=== PATIENT | female | born 1985 | race African-American/Black ===

== ENCOUNTER 2020-10-06 16:02 | Outpatient (REF) | payer OTHER, SELFPAY | END 2020-10-06 16:03 | disposition home or self-care (01) | LOC: HO.LAB 16:02 | PROVIDERS: Visit Provider Internal Medicine | DX: Z20.822 Contact with and (suspected) exposure to COVID-19 (principal) | CPT/HCPCS: 36415; C9803; U0003; U0005 ==

== ENCOUNTER 2020-11-02 09:02 | Outpatient (REF) | payer OTHER, SELFPAY ==
[2020-11-03 08:58] LABS: BV Int Neg Control Negative (Negative); BV Int Pos Control Positive (Positive)
[2020-11-03 09:47] LABS: C. trachomatis RNA TMA NOT DETECTED (NOT DETECTED); N. gonorrhoeae RNA TMA NOT DETECTED (NOT DETECTED)
== END 2020-11-02 09:03 | disposition home or self-care (01) ==
LOC: HO.LAB 09:02
PROVIDERS: Visit Provider Advanced Practice Midwife
DX: Z01.419 Encounter for gynecological examination (general) (routine) without abnormal findings (principal); N94.10 Unspecified dyspareunia; N94.6 Dysmenorrhea, unspecified; N85.4 Malposition of uterus; R32 Unspecified urinary incontinence; Z20.2 Contact with and (suspected) exposure to infections with a predominantly sexual mode of transmission; Z87.42 Personal history of other diseases of the female genital tract
CPT/HCPCS: 36415; 87480; 87491; 87510; 87591; 87660

== ENCOUNTER 2020-11-16 13:37 | Outpatient (REF) | payer OTHER, SELFPAY ==
--- NOTE | ~2020-11-16 | US_ITS ---
EXAMINATION:US pelvic complete, US transvaginal CLINICAL INFORMATION: Reason for Exam EXCESSIVE AND FREQ. MENSES COMPARISON: No priors available. LMP: 10/19/2020 FINDINGS: UTERUS: The uterus is anteverted. Size: 10 x 5.7 x 5.2 cm. Uterine mass: There is no uterine mass. Cervix: Grossly unremarkable. Endometrium: endometrial thickness measures 0.8 cm there is echogenic structure within the endometrium 1.5 x 1.1 cm could be a polyp versus endometrial lesion. Refer image 52 series 1 ADNEXA: Normal Right ovary: Normal in size. Left ovary: Normal in size. There is corpus luteal cyst 1.8 x 1.9 x 1.6 cm. Doppler exam: Normal Doppler flow identified in both ovaries. FREE FLUID: Trace amount of free fluid. OTHER FINDINGS: None US/US transvaginal IMPRESSION: Heterogeneously echogenic structure found within the endometrium 1.5 cm concerning for possible polyp versus other lesions. Attention to follow-up recommended. Consider follow-up ultrasound in 6 weeks.
--- NOTE | ~2020-11-16 | US_ITS ---
EXAMINATION:US pelvic complete, US transvaginal CLINICAL INFORMATION: Reason for Exam EXCESSIVE AND FREQ. MENSES COMPARISON: No priors available. LMP: 10/19/2020 FINDINGS: UTERUS: The uterus is anteverted. Size: 10 x 5.7 x 5.2 cm. Uterine mass: There is no uterine mass. Cervix: Grossly unremarkable. Endometrium: endometrial thickness measures 0.8 cm there is echogenic structure within the endometrium 1.5 x 1.1 cm could be a polyp versus endometrial lesion. Refer image 52 series 1 ADNEXA: Normal Right ovary: Normal in size. Left ovary: Normal in size. There is corpus luteal cyst 1.8 x 1.9 x 1.6 cm. Doppler exam: Normal Doppler flow identified in both ovaries. FREE FLUID: Trace amount of free fluid. OTHER FINDINGS: None US/US pelvic complete IMPRESSION: Heterogeneously echogenic structure found within the endometrium 1.5 cm concerning for possible polyp versus other lesions. Attention to follow-up recommended. Consider follow-up ultrasound in 6 weeks.
== END 2020-11-16 13:38 | disposition home or self-care (01) ==
LOC: HO.US 13:37
PROVIDERS: Visit Provider Internal Medicine
DX: N92.0 Excessive and frequent menstruation with regular cycle (principal)
CPT/HCPCS: 76830; 76856

== ENCOUNTER → 2021-03-07 11:26 | Outpatient (BNVA) | payer OTHER, SELFPAY | PROVIDERS: Visit Provider Advanced Practice Midwife ==

== ENCOUNTER 2021-03-10 11:09 | Outpatient (REF) | payer OTHER, SELFPAY ==
[2021-03-10 12:09] LABS: Hematocrit 38.3 % (37-47); Mean Corpuscular HGB Conc 31.3 g/dl (31.0-35.0); Mean Corpuscular Hemoglobin 25.3 pg (27.0-33.0); Mean Corpuscular Volume 80.6 fL (80-98); Mean Platelet Volume 10.4 fL (9.4-12.3); Platelet Count 309 X10*3/uL (160-400); Red Blood Count 4.75 X10*6/uL (4.20-5.50); Red Cell Distribution Width 14.7 % (11.0-16.0); White Blood Count 5.9 X10*3/uL (4.8-10.8)
[2021-03-10 13:00] LABS: Thyroid Stimulating Hormone 0.96 uIU/mL (0.32-4.0)
== END 2021-03-10 11:10 | disposition home or self-care (01) ==
LOC: HO.LAB 11:09
PROVIDERS: PCP Internal Medicine; Visit Provider Advanced Practice Midwife
DX: N92.1 Excessive and frequent menstruation with irregular cycle (principal)
CPT/HCPCS: 36415; 84443; 85027

== ENCOUNTER → 2021-03-14 10:43 | Outpatient (BNVA) | payer OTHER, SELFPAY | PROVIDERS: PCP Internal Medicine; Visit Provider Obstetrics & Gynecology ==

== ENCOUNTER 2021-03-18 08:15 | Day surgery (SDC) | payer OTHER, SELFPAY ==
--- NOTE | 2021-03-17 08:35 | HO.ANESPROP2 ---
Documented by User: Sandra Garcia 03/17/21 08:36 HPI - Anesthesia Eval Consult details Narrative: 35yo F for D&C Hysteroscopy, Poss Polypectomy, Poss Myomectomy PMFSH Active Problems Active Problems: All Active Problems (Updated 03/10/21 @ 12:34 by Pa Do MD) Menorrhagia (Acute) Urinary incontinence (Acute) Retroverted uterus (Acute) Potential exposure to STD (Acute) Dysmenorrhea (Acute) Dyspareunia (Acute) Encounter for annual routine gynecological examination (Acute) Past Medical History Medical History Abnormal Pap smear of cervix Retroverted uterus Family History Family History Family/Other Colon cancer Surgical History Surgical History Hx of tubal ligation Social History Social History Alcohol intake: never Patient Tobacco Use Status: Never used Tobacco Use of substances other than those prescribed or required for medical reasons: No Are you DNR?: No Advance Directives: No Advance Directives Information Provided: Yes Meds Allergies Allergy/AdvReac Type Severity Reaction Status Date / Time No Known Allergies Allergy Verified 03/14/21 10:55 Exam Exam Date and Time: March 17, 2021 0835 Pertinent Lab Results Pertinent Lab Results: Laboratory Tests 03/10/21 11:33 WBC 5.9 Hgb 12.0 Hct 38.3 Plt Count 309 Assessment and Plan Assessment Anesthesia Assessment: Chart Reviewed Documented by User: Vivian Guadarrama 03/18/21 08:55 PMFSH Past Medical History Medical History Abnormal Pap smear of cervix Retroverted uterus Family History Family History Family/Other Colon cancer Surgical History Surgical History Hx of tubal ligation Social History Social History Alcohol intake: never Patient Tobacco Use Status: Never used Tobacco Use of substances other than those prescribed or required for medical reasons: No Are you DNR?: No Advance Directives: No Advance Directives Information Provided: Yes Meds Allergies Allergy/AdvReac Type Severity Reaction Status Date / Time No Known Allergies Allergy Verified 03/14/21 10:55 Exam Airway Mallampati Class: II TM Dist: >3cm Neck ROM: Full Loose/Missing/Broken Teeth: No Heart: RRR Lungs: CTA Assessment and Plan Assessment Anesthesia Assessment: Anesthesia Plan Discussed and Chart Reviewed Final Anesthetic Review NPO: Yes ASA Class: II Final Preanesthetic Review: Meds/Allgs Chart Reviewed, Consent Obtained/Reviewed and Anes Risks/Benef Reviewed Patient Risk: Low Procedure Risk: Low Anesthetic Plan Anesthetic Plan: GA Disposition: Standard PACU
[2021-03-18] VITALS (11 sets, daily range): BP systolic 102–127; BP diastolic 51–68; PULSE 48–73; RESP 16–22; TEMP 36.1–36.7; O2SAT 98–100; BMI 38.1
[2021-03-18 08:36] LABS: UPreg QC Valid YES; Urine Pregnancy NEGATIVE (NEGATIVE)
[2021-03-18] MEDS: Lactated Ringers 1,000 ML 100 ML IVCONT (08:59)
--- NOTE | 2021-03-18 09:07 | MHC.SHP ---
Pre-Procedural Eval Section A Date of Service: 03/18/21 The patient is an INPATIENT: No Changes since office visit: No Cold of Flu in the past 2 weeks, No New Medical Problems, No Changes in Medication and No Patient answered all questions The History & Physical has been completed within 30 days and I have reviewed it.: Yes Section B Chief Complaint: frequent bleeding Allergies: Allergies Allergy/AdvReac Type Severity Reaction Status Date / Time No Known Allergies Allergy Verified 03/14/21 10:55 Plan Diagnosis/Plan: Unchanged I have reviewed the history and physical and performed a pertinent physical examination on my patient. No changes have occurred unless specified.
--- NOTE | 2021-03-18 10:39 | P.BOP_ITS ---
Brief Operative Note Date of Service: 03/18/21 Pre-op diagnosis: Menorrhagia with endometrial polyp by ultrasound Post-op diagnosis: same Procedure: Hysteroscopy D&C, Polypectomy Surgeon: Pa Do MD Anesthesia: MAC Was an Rewards Consultant used for this Procedure?: No Estimated blood loss (mL): 0 Pathology: other (Endometrial Scrapping. Polyp) Condition: stable Disposition: PACU
--- NOTE | 2021-03-18 10:40 | P.OP_ITS ---
Operative Note Operative Note Date of Service: 03/18/21 Narrative: Preop Diagnosis: Menorrhagia with Endometrial polyp by US Operation: Diagnostic Hysteroscopy, Dilataion & Curettage and polypectomy Post Op Diagnosis: Endometrial Polyp QBL: Minimal Anesthesia: MAC Surgeon: Pa Do MD Supervisor Packing Room: None Complication: None Pathology: Endometrial Scrapings, Endometrial polyp Complication: None Pathology: Endometrial Scrapings, Endometrial polyp Procedure: The patient was put in the dorsal lithotomy position, scrubbed, and draped in the usual manner. A sterile speculum was inserted in the patient's vagina. The anterior lip of the cervix was grasped with a single tooth tenaculum. The cervix was dilated up to 5 mm, then the scope was inserted in the patient's uterus. Inspection revealed endometrial polyp. The Myosure Reach device was used; it was introduced through the operative channel and polypectomy done with no complications. This was followed by sharp curetting with moderate tissue was retrieved. At the end of the procedure, all instruments were taken out of the patient uterine and vaginal cavity. The single tooth tenaculum was removed and homeostasis was assured using pressure,. The patient tolerated the procedure well and was transferred to the PACU in a stable condition.
[2021-03-18] MEDS: ondansetron HCL 4 MG/2 ML VIAL IVPUSH (11:16)
[2021-03-18] MEDS: Acetaminophen 325 MG TABLET 650 MG PO (11:17)
[2021-03-18] MEDS: oxyCODONE HCl Immed Release 5 MG TABLET 10 MG PO (11:18)
[2021-03-18] MEDS: fentaNYL citrate/PF 100 MCG/2 ML VIAL 50 MCG IVPUSH (11:19)
== END 2021-03-18 13:18 | disposition home or self-care (01) ==
LOC: HO.SSS 08:15
PROVIDERS: PCP Internal Medicine; Visit Provider Obstetrics & Gynecology
PROC: 0UDB8ZZ Extraction of Endometrium, Via Natural or Artificial Opening Endoscopic (ICD-10-PCS; CPT 58558; principal; 2021-03-18 10:00)
DX: N92.0 Excessive and frequent menstruation with regular cycle (principal); N84.0 Polyp of corpus uteri; Z98.51 Tubal ligation status
CPT/HCPCS: 58558; 81025; 88305; J1100; J1885; J2250; J2405; J3010

== ENCOUNTER → 2021-03-31 11:26 | Outpatient (BNVA) | payer OTHER, SELFPAY | PROVIDERS: PCP Internal Medicine; Visit Provider Obstetrics & Gynecology ==

== ENCOUNTER 2021-04-18 14:16 | Outpatient (REF) | payer OTHER, SELFPAY ==
[2021-04-19 04:57] LABS: CT PCR NOT DETECTED (Not Detect.); NG PCR NOT DETECTED (Not Detect.)
== END 2021-04-18 14:17 | disposition home or self-care (01) ==
LOC: HO.LAB 14:16
PROVIDERS: PCP Internal Medicine; Visit Provider Advanced Practice Midwife
DX: Z30.430 Encounter for insertion of intrauterine contraceptive device (principal); Z20.2 Contact with and (suspected) exposure to infections with a predominantly sexual mode of transmission
CPT/HCPCS: 81025; 87491; 87591

== ENCOUNTER → 2021-05-25 14:10 | Outpatient (BNVA) | payer OTHER, SELFPAY | PROVIDERS: PCP Internal Medicine; Visit Provider Advanced Practice Midwife ==

== ENCOUNTER 2021-08-08 09:06 | Outpatient (REF) | payer OTHER, SELFPAY ==
--- NOTE | ~2021-08-08 | XR_ITS ---
EXAMINATION: XR KNEE, RIGHT CLINICAL INFORMATION: Chronic pain. COMPARISON: None TECHNIQUE: Four views of the right knee. FINDINGS: [place] images also obtained. The patella is fairly well seated. Density anterior may represent a small loose body No effusion is seen. There is irregularity of the articulating femur on the lateral study likely indicating chronic osteochondral injury. There is irregularity at the articulation with the patella at this level and a possible degenerative cyst in the patella. There is mild patellofemoral spurring and some degeneration at the insertion of the infrapatellar tendon on the anterior tibia. Tibial spine spurring medially greater than laterally. Some marginal joint osteophytic change along the medial compartment but the medial and lateral joint spaces are fairly well preserved. There is no acute bony erosion. XR/XR knee RT 4V IMPRESSION: Findings as described above. Degenerative changes are seen here. Possible small lucent lesion with sclerotic margins in the proximal tibia. Consider MRI of the knee to fully evaluate.
== END 2021-08-08 09:07 | disposition home or self-care (01) ==
LOC: HO.XRAY 09:06
PROVIDERS: Absent Provider Internal Medicine; PCP Internal Medicine; Visit Provider Nurse Practitioner
DX: M25.561 Pain in right knee (principal)
CPT/HCPCS: 73564

== ENCOUNTER 2022-02-17 09:40 | Outpatient (REF) | payer OTHER, SELFPAY ==
[2022-02-17 15:29] LABS: CT PCR NOT DETECTED (Not Detect.); NG PCR NOT DETECTED (Not Detect.)
== END 2022-02-17 09:41 | disposition home or self-care (01) ==
LOC: HO.LAB 09:40
PROVIDERS: Visit Provider Advanced Practice Midwife
DX: Z01.419 Encounter for gynecological examination (general) (routine) without abnormal findings (principal)
CPT/HCPCS: 87491; 87591

== ENCOUNTER 2023-02-22 08:06 | Outpatient (REF) | payer OTHER, SELFPAY ==
[2023-03-02 05:59] LABS: HPV 16 RNA NOT DETECTED (NOT DETECTED); HPV mRNA E6/E7 rflx Detected (Not Detected)
== END 2023-02-22 08:07 | disposition home or self-care (01) ==
LOC: HO.LNP 08:06
PROVIDERS: PCP Internal Medicine; Visit Provider Advanced Practice Midwife
DX: Z01.419 Encounter for gynecological examination (general) (routine) without abnormal findings (principal); Z11.51 Encounter for screening for human papillomavirus (HPV)
CPT/HCPCS: 87624; 87625; 88142

== ENCOUNTER 2023-10-11 10:23 | Outpatient (AMB) | payer MEDICAID, SELFPAY ==
--- NOTE | 2023-10-11 10:27 | A.OFFVIS_ITS ---
Intake Vital Signs 10/11/23 10:28 Height 5 ft 6 in Weight 200 lb BMI 32.3 BP 102/64 Intake Visit Reasons: irregular bleeding Corporate Relations Director Required: Yes Corporate Relations Director Language: Tool Filer Hand Name: Morris [id number] Information Interpreted: non-clinical & clinical Engineering Department Chair: Engineering Department Chair Present (Liz) Allergies No Known Allergies Allergy (Verified 10/11/23 10:28) Is last menstrual period known: Yes HPI HPI Comments History of Present Illness Details Patient is here today with concerns of an irregular bleeding episode, she currently has a Mirena IUD. She denies any vaginal odors or irritations. She admits to having some discomfort with the onset of the bleeding she bled for a a little over a week. She has currently not sexually active. She also had a gastric sleeve surgery on 08/08/2023. [facility] Medical History (Updated 03/15/23 @ 08:15 by Reyna Vasquez CNM) Abnormal Pap smear of cervix Surgical History (Updated 10/11/23 @ 10:36 by Eryn Mcnulty [place]) H/O gastric sleeve Hx of tubal ligation Family History Family/Other Colon cancer Social History Household Members: Children Housing: Apartment Alcohol intake: never Patient Tobacco Use Status: Never used Tobacco Sexual orientation: Straight/Heterosexual Gender identity: Female Female Reproductive History Menstrual control method: progestin IUCD (Mirena 03/2021) Date of last pap smear: 02/22/23 (ascus +hpv) History of abnormal pap smear: Yes (08/11 ascus +hpv 09/12 colpo david 1 2/18 neg pap and hpv) Review of Systems Const All systems reviewed & are unremarkable except as noted in HPI and below Physical Exam Vital Signs: Last Vital Signs BP 102/64 10/11/23 10:28 BMI result Body Mass Index 32.3 Const General: cooperative, healthy appearing and no acute distress Orientation/consciousness: patient oriented x3 GI Inspection: Yes normal to inspection Palpation (GI): Soft to palpation and Other GI palpation findings present (Nontender) Rectal Exam - Female: visual inspection normal General: Yes bladder normal to palpation External Female Exam: normal appearance of the urethra Speculum Exam - Vagina: normal appearance of the vagina, normal palpation, normal vaginal discharge and vaginal bleeding Speculum Exam - Cervix: normal appearance of the cervix and normal palpation Bimanual exam- vagina & uterus: normal bimanual exam, normal palpation, uterine size normal, bladder normal to palpation, normal palpation, uterine shape normal, non-tender and other (IUD strings present) Bimanual Exam- Adnexa, other: normal adnexae OB/external & speculum: vaginal bleeding Neuro General: patient oriented x3 Results AMB Test Urine AMB Test Urine Negative Last Edit by WENDY Diallo on 10/11/23 10:41 Results Reviewed Results Reviewed: Laboratory Last Values [facility]st Clinic Negative 10/11/23 10:40 Assessment & Plan Assessment & Plan (1) Irregular menses: Code(s): N92.6 - Irregular menstruation, unspecified (2) IUD surveillance: Code(s): Z30.431 - Encounter for routine checking of intrauterine contraceptive device (3) Pelvic pain: Code(s): R10.2 - Pelvic and perineal pain Plan Discussed workup: To include cultures and an ultrasound to determine IUD positioning in to examine anatomically. Return to the office after ultrasound to discuss results findings. All of her questions and concerns were addressed to the best of my ability and shared decision making. She is agreeable to the plan of care. This note is constructed using voice recognition software. While every effort has been made to ensure accuracy, small machine bindery operator errors may have been included. Orders: Orders AMB HCG Urine Test Today Z32.02 - Encounter for test, result negative CT NG by PCR Today N93.9 - Abnormal uterine and vaginal bleeding, unspecified US OB pelvic and transvaginal Today N92.6 - Irregular menstruation, unspecified, R10.2 - Pelvic and perineal pain, Z30.431 - Encounter for routine checking of intrauterine contraceptive device Bacterial Vaginosis Panel Today N93.9 - Abnormal uterine and vaginal bleeding, unspecified Coding Level of Care Code Est Pt Level 3 (30529) Diagnoses Irregular menses N92.6 IUD surveillance Z30.431 Pelvic pain R10.2
[2023-10-11 10:28] VITALS: BP 102/64; BMI 32.3
== END 2023-10-11 16:20 | disposition home or self-care (01) ==
PROVIDERS: PCP Internal Medicine; Visit Provider Advanced Practice Midwife
DX: N92.6 Irregular menstruation, unspecified (principal); Z30.431 Encounter for routine checking of intrauterine contraceptive device; R10.2 Pelvic and perineal pain; Z32.02 Encounter for pregnancy test, result negative
CPT/HCPCS: 99213

== ENCOUNTER 2023-10-11 10:23 | Outpatient (REF) | payer MEDICAID, SELFPAY | END 2023-10-11 10:24 | disposition home or self-care (01) | LOC: HO.LNP 10:23 | PROVIDERS: PCP Internal Medicine; Visit Provider Advanced Practice Midwife | DX: N93.9 Abnormal uterine and vaginal bleeding, unspecified (principal); N92.6 Irregular menstruation, unspecified; R10.2 Pelvic and perineal pain; Z30.431 Encounter for routine checking of intrauterine contraceptive device; Z32.02 Encounter for pregnancy test, result negative | CPT/HCPCS: 81025; 99212 ==

== ENCOUNTER 2023-10-11 10:52 | Outpatient (REF) | payer MEDICAID, SELFPAY ==
[2023-10-11 15:16] LABS: CT PCR NOT DETECTED (Not Detect.); NG PCR NOT DETECTED (Not Detect.)
[2023-10-12 09:53] LABS: BV Int Neg Control Negative (Negative); BV Int Pos Control Positive (Positive)
== END 2023-10-11 10:53 | disposition home or self-care (01) ==
LOC: HO.LAB 10:52
PROVIDERS: Visit Provider Advanced Practice Midwife
DX: N93.9 Abnormal uterine and vaginal bleeding, unspecified (principal)
CPT/HCPCS: 0353U; 81025; 87480; 87510; 87660; 99212

== ENCOUNTER 2023-11-06 11:07 | Outpatient (REF) | payer MEDICAID, SELFPAY ==
--- NOTE | ~2023-11-06 | US_ITS ---
EXAMINATION: US PELVIS COMPLETE CLINICAL INFORMATION: Irregular menstruation, check IUD COMPARISON: Pelvic ultrasound 11/16/2020 TECHNIQUE: Transabdominal and transvaginal imaging was performed. FINDINGS: The uterus is of normal size and echogenicity measuring 9.4 x 4.4 x 5.3 cm. Uterus is retroverted and retroflexed in position. Intrauterine device in place which obscures evaluation of the endometrium. Trace fluid in the cervix. Both ovaries are of normal size and echogenicity. The right measures a volume of 4.9 mL. The left measures a volume of 5.9 mL. There is no pelvic free fluid. US/US pelvic and transvaginal IMPRESSION: 1. Intrauterine device in place which obscures evaluation of the endometrium. 2. Trace fluid in the endocervical canal.
== END 2023-11-06 11:08 | disposition home or self-care (01) ==
LOC: HO.US 11:07
PROVIDERS: PCP Internal Medicine; Visit Provider Advanced Practice Midwife
DX: N92.6 Irregular menstruation, unspecified (principal); R10.2 Pelvic and perineal pain; Z30.431 Encounter for routine checking of intrauterine contraceptive device
CPT/HCPCS: 76830; 76856

== ENCOUNTER 2023-11-20 14:57 | Outpatient (AMB) | payer MEDICAID, SELFPAY ==
--- NOTE | 2023-11-20 15:00 | A.OFFVIS_ITS ---
Intake Vital Signs 11/20/23 15:01 Height 5 ft 6 in Weight 200 lb BMI 32.3 BP 100/64 Intake Visit Reasons: Ultrasound follow up Supervisor Dimension Warehouse Required: Yes Supervisor Dimension Warehouse Language: Construction Inspector Name: Dafne NGUYEN Information Interpreted: non-clinical & clinical Machine Spring Former: Machine Spring Former Present Allergies No Known Allergies Allergy (Verified 11/20/23 15:00) Is last menstrual period known: Yes HPI HPI Comments History of Present Illness Details Patient presents for an IUD follow-up results appointment. Previously she would complained of irregular spotting and bleeding with her IUD. She reports all the symptoms have resolved. All cultures were negative. History of ASCUS next Pap is due in February 2024. She reports some urinary concerns, she has a frequency, urgency and dysuria. She took 2 doses of her sons antibiotics and felt better, she has an appointment next month with her PCP. [facility] Medical History (Updated 03/15/23 @ 08:15 by Reyna Vasquez CNM) Abnormal Pap smear of cervix Surgical History (Updated 10/11/23 @ 10:36 by WENDY Diallo) H/O gastric sleeve Hx of tubal ligation Family History Family/Other Colon cancer Social History Household Members: Children Housing: Apartment Alcohol intake: never Patient Tobacco Use Status: Never used Tobacco Sexual orientation: Straight/Heterosexual Gender identity: Female Review of Systems Const All systems reviewed & are unremarkable except as noted in HPI and below Endo Reports no additional complaints Physical Exam Vital Signs: Last Vital Signs BP 100/64 11/20/23 15:01 BMI result Body Mass Index 32.3 Const General: cooperative, healthy appearing and no acute distress Psych Appearance: well kempt Attitude: cooperative Thought process: Normal thought process present Results Reviewed Results Reviewed: [address] [address] Ultrasound Report Signed Patient: Madison Sethi MR#: [id number] : 1985 Acct:[id number] Age/Sex: 38 / F ADM Date: 11/06/23 Loc: HO. Attending Dr: Reyna Vasquez CNM Ordering Physician: Reyna Vasquez CNM Date of Service: 11/06/23 Procedure(s): US pelvic and transvaginal Accession Number(s): [id number] cc: Genna Jones MD; Reyna Vasquez CNM~ EXAMINATION: US PELVIS COMPLETE CLINICAL INFORMATION: Irregular menstruation, check IUD COMPARISON: Pelvic ultrasound 11/16/2020 TECHNIQUE: Transabdominal and transvaginal imaging was performed. FINDINGS: The uterus is of normal size and echogenicity measuring 9.4 x 4.4 x 5.3 cm. Uterus is retroverted and retroflexed in position. Intrauterine device in place which obscures evaluation of the endometrium. Trace fluid in the cervix. Both ovaries are of normal size and echogenicity. The right measures a volume of 4.9 mL. The left measures a volume of 5.9 mL. There is no pelvic free fluid. US/US pelvic and transvaginal IMPRESSION: 1. Intrauterine device in place which obscures evaluation of the endometrium. 2. Trace fluid in the endocervical canal. Dictated By: Nelly Marquez MD Signed By: <Electronically signed by Nelly Marquez MD in OV> 11/08/23 1906 DD/ 1138 TD/TT: Forklift Truck Operator: Assessment & Plan Assessment & Plan (1) Encounter to discuss test results: Code(s): Z71.2 - Person consulting for explanation of examination or test findings (2) Frequency of urination: Code(s): R35.0 - Frequency of micturition (3) Dysuria: Code(s): R30.0 - Dysuria Plan Discussed ultrasound findings: IUD is in proper position, otherwise normal scan. Plan UA clean-catch today. Advised to hydrate well with water. And follow up with her primary care as indicated if symptoms persist and urine is negative. Advised not to take antibiotics from other people, under treatment or misuse can lead to antibiotic resistance. Advised importance of following up for her annual in February to repeat her Pap smear due to the prior abnormality. All of her questions and concerns were addressed to the best of my ability and shared decision making. She is agreeable to the plan of care. This note is constructed using voice recognition software. While every effort has been made to ensure accuracy, centerless grinder tender errors may have been included. Coding Level of Care Code Est Pt Level 3 (39111) Diagnoses Encounter to discuss test results Z71.2 Frequency of urination R35.0 Dysuria R30.0
[2023-11-20 15:01] VITALS: BP 100/64; BMI 32.3
== END 2023-11-20 17:42 ==
LOC: HO.HWS 14:57
PROVIDERS: PCP Internal Medicine; Visit Provider Advanced Practice Midwife
DX: Z71.2 Person consulting for explanation of examination or test findings (principal); R35.0 Frequency of micturition; R30.0 Dysuria
CPT/HCPCS: 99213

== ENCOUNTER 2023-11-20 14:57 | Outpatient (REF) | payer MEDICAID, SELFPAY | END 2023-11-20 14:58 | disposition home or self-care (01) | LOC: HO.LAB 14:57 | PROVIDERS: PCP Internal Medicine; Visit Provider Advanced Practice Midwife | DX: R32 Unspecified urinary incontinence (principal); R30.0 Dysuria; R35.0 Frequency of micturition; Z71.2 Person consulting for explanation of examination or test findings | CPT/HCPCS: 87086; 87088; 99212 ==

== ENCOUNTER 2024-02-20 18:23 | Outpatient (REF) | payer MEDICAID, SELFPAY | END 2024-02-20 18:24 | disposition home or self-care (01) | LOC: HO.HHCLNP 18:23 | PROVIDERS: Visit Provider Student in an Organized Health Care Education/Training Program | DX: R39.9 Unspecified symptoms and signs involving the genitourinary system (principal) | CPT/HCPCS: 87086; 87088; 87186 ==

== ENCOUNTER 2024-04-11 11:02 | Outpatient (REF) | payer MEDICAID, SELFPAY | END 2024-04-11 11:03 | disposition home or self-care (01) | LOC: HO.HHCLNP 11:02 | PROVIDERS: Visit Provider Emergency Medicine | DX: R39.9 Unspecified symptoms and signs involving the genitourinary system (principal); R82.79 Other abnormal findings on microbiological examination of urine | CPT/HCPCS: 87086; 87088; 87186 ==

== ENCOUNTER 2024-05-08 14:16 | Outpatient (AMB) | payer MEDICAID, SELFPAY ==
--- NOTE | 2024-05-08 14:23 | A.OFFVIS_ITS ---
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 Doing well with no concerns. She tries to eat healthy and stays active with exercise. Mirena user for cycle control. Hx. tubal ligation. Currently is sexually active. She denies vaginal itching and irritation. STI screening offered; she accepts. Declines STD blood work as she reports is up-to-date. Family history of colon cancer-mother age 32. She reports her PCP has placed a referral for her to have a colonoscopy. Last pap smear ASCUS positive HPV 2012. [facility] Medical History (Updated 05/08/24 @ 15:01 by Reyna Vasquez CNM) Abnormal Pap smear of cervix Surgical History H/O gastric sleeve Hx of tubal ligation Family History (Updated 05/08/24 @ 15:01 by Reyna Vasquez CNM) Family/Other Colon cancer Mother Colon cancer, Onset Age: 32 Maternal Grandmother Throat cancer Eye cancer Social History Household Members: Children Housing: Apartment Alcohol intake: never Patient Tobacco Use Status: Never used Tobacco Sexual orientation: Straight/Heterosexual Gender identity: Female Female Reproductive History Menstrual Duration of menses: <3 days Date of last menstrual period: 05/02/24 control method: progestin IUCD (Mirena 03/2021) and permanent sterilization Permanent Sterilization: BTL Total pregnancies: 2 Full term: 2 Number of Living Children: 2 Date of last pap smear: 02/22/23 (ascus +hpv) History of abnormal pap smear: Yes (08/11 ascus +hpv 09/12 colpo david 1) Review of Systems Const All systems reviewed & are unremarkable except as noted in HPI and below Reports as per HPI Eyes Reports no additional complaints ENT Reports no additional complaints Card Reports no additional complaints Resp Reports no additional complaints GI Reports as per HPI and Reports no additional complaints Reports as per HPI Musc Reports no additional complaints Skin/Breast Reports as per HPI Neuro Reports no additional complaints Psych Reports no additional complaints Endo Reports no additional complaints Herbert/Lymph Reports no additional complaints Aller/Immun Reports no additional complaints Physical Exam Vital Signs: Last Vital Signs BP 102/66 05/08/24 14:25 BMI result Body Mass Index 27.3 Const General: cooperative, healthy appearing, no acute distress, well developed and alert Orientation/consciousness: patient oriented x3 HEENT Head: Yes normal to inspection Eyes General: appearance normal, both eyes and all related structures Neck Neck: Yes normal visual inspection Thyroid: Thyroid normal Chest Chest palpation & inspection: normal inspection of the chest and other (no puckering, dimpling, peau de orange, retraction, discharge, masses) Breast/axilla inspection: normal inspection of the breasts Breast/axilla palpation: normal palpation of the breasts Resp Effort & Inspection: normal respiratory effort GI Inspection: Yes normal to inspection Palpation (GI): Soft to palpation Rectal Exam - Female: deferred General: Yes bladder normal to palpation External Female Exam: normal external appearance and normal appearance of the urethra Speculum Exam - Vagina: normal appearance of the vagina, normal palpation, normal vaginal discharge and vaginal bleeding Speculum Exam - Cervix: normal appearance of the cervix, normal palpation and Other cervical findings present (IUD strings at the os, no palpable tip) Bimanual exam- vagina & uterus: normal bimanual exam, normal palpation, uterine size normal, bladder normal to palpation, normal palpation and non-tender Bimanual Exam- Adnexa, other: no masses OB/external & speculum: vaginal bleeding Skin General skin exam: no rashes or lesions noted Rashes: no rashes Neuro General: patient oriented x3 Cognition (Neuro): normal cognition Extrem General: Yes normal to inspection Psych Attitude: cooperative Thought process: Normal thought process present Assessment & Plan Assessment & Plan (1) Encounter for well woman exam with routine gynecological exam: Code(s): Z01.419 - Encounter for gynecological examination (general) (routine) without abnormal findings Category: Medical Plan Discussed: Current recommendations for pap smears per ASCCP guidelines. Breast awareness and periodic breast exams. Maintain a healthy lifestyle including a well balanced diet and routine exercise. Interested in the Gardasil, unsure she has had in the past she is going to call her previous provider and check if not she is going to return here in have the series completed. Patient verbalizes understanding and agrees to the plan of care. She was given opportunity to ask questions and all questions were answered to the best of my ability. 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 This note is constructed using voice recognition software. While every effort has been made to ensure accuracy, ad terminal makeup operator errors may have been included. Coding Level of Care Code Est Pt Prev Care 18-39y(77379) Diagnoses Encounter for well woman exam with routine gynecological exam Z01.419
[2024-05-08 14:25] VITALS: BP 102/66; BMI 27.3
== END 2024-05-08 15:18 | disposition home or self-care (01) ==
PROVIDERS: PCP Internal Medicine; Visit Provider Advanced Practice Midwife
DX: Z01.419 Encounter for gynecological examination (general) (routine) without abnormal findings (principal)
CPT/HCPCS: 99395

== ENCOUNTER 2024-05-08 14:16 | Outpatient (REF) | payer MEDICAID, SELFPAY ==
[2024-05-09 03:10] LABS: CT PCR NOT DETECTED (Not Detect.); NG PCR NOT DETECTED (Not Detect.)
[2024-05-12 15:33] LABS: HPV mRNA E6/E7 Not Detected (Not Detected)
== END 2024-05-08 14:17 | disposition home or self-care (01) ==
LOC: HO.LNP 14:16
PROVIDERS: PCP Internal Medicine; Visit Provider Advanced Practice Midwife
DX: Z01.419 Encounter for gynecological examination (general) (routine) without abnormal findings (principal); Z20.2 Contact with and (suspected) exposure to infections with a predominantly sexual mode of transmission
CPT/HCPCS: 87491; 87591; 87624; 88175; 99395

== ENCOUNTER 2024-05-19 14:37 | Outpatient (AMB) | payer MEDICAID, SELFPAY ==
--- OUTSIDE RECORDS SUMMARY | 2024-05-19 14:39 | XMS_ITS | Continuity of Care Document ---
Author Organization [facility] Address Unknown Care Team Providers Care Crystal Grower Name Role Phone Karen COLLINS, Genna Rolon Primary Care Physician [facility] [place] Date(s): 09/23/21 - 09/30/21 [facility] Attending Physician: Boubacar ZAPATA,RD,LDN, Shellie Sotomayor Referring Physician: Not on Staff, Referring MD Allergies, Adverse Reactions, Alerts No Known Allergies Medications Vitamin D3 1000 intl units oral tablet, chewable 1 tablet = 25 mcg, Chew, Daily, # 50 tablet, 0 Refills, Maintenance, 08/16/21 8:59:00 EST, Chew Tablet, Partial fill upon patient request if the prescription is for a schedule II opioid drug. Start Date: 08/16/21 Status: Ordered Problem List Condition Effective Dates Status Health Status Inform ant Hypercholesteremia(Confirmed) Active Obese class II(Confirmed) Active Leg pain(Confirmed) Active Prediabetes(Confirmed) Active Social History Social History Type Response Smoking Status Never (less than 100 in lifetime) entered on: 08/16/21 Sex
--- OUTSIDE RECORDS SUMMARY | 2024-05-19 14:39 | XMS_ITS | Continuity of Care Document ---
Author Organization [facility] Address [address] [place] [address] [address] [place] [address]- Care Team Providers Care Industrial Hygiene Technician Name Role Phone Genna Jones MD Primary Care Physician Encounter [facility] [place] Date(s): 05/08/22 - 06/07/[address] [place] [id number] Allergies, Adverse Reactions, Alerts No Known Allergies Medications Vitamin D3 1000 intl units oral tablet, chewable 1 tablet = 25 mcg, Chew, Daily, # 50 tablet, 0 Refills, Maintenance, 08/16/21 8:59:00 EST, Chew Tablet, Partial fill upon patient request if the prescription is for a schedule II opioid drug. Start Date: 08/16/21 Status: Ordered Problem List Condition Confirmation Course Effective Dates Status Health Status Informant Binge eating disorder, mild, in partial remission Confirmed Active Hypercholesteremia Confirmed Active Obese class II Confirmed Active Leg pain Confirmed Active Prediabetes Confirmed Active Social History Social History Type Response Smoking Status Never (less than 100 in lifetime) entered on: 08/16/21 Sex Patient Care team information Personnel Name: Genna Jones MD Address: Address: [address] [place] [id number]
--- OUTSIDE RECORDS SUMMARY | 2024-05-19 14:39 | XMS_ITS | Continuity of Care Document ---
Author Organization [facility] Address [address] [place] [address] [address] [place] [address]- Care Team Providers Care Carpet Sewer Name Role Phone Genna Jones MD Primary Care Physician Encounter [facility] [place] Date(s): 05/25/22 - 08/31/[address] [place] [address]- Attending Physician: Librado Crum MD Allergies, Adverse Reactions, Alerts No Known [...] on: 08/16/21 Sex Patient Care team information Care Team Personnel Name: Genna Jones MD Position: [facility] Outreach Member Role: PCP Address: Address: [address] [place] [address]- Care Team Related Persons Name: DANA FOUNTAIN Address: home [address] [place] [address] Name: NICK COLE Address: [place] [address]
--- OUTSIDE RECORDS SUMMARY | 2024-05-19 14:39 | XMS_ITS | Continuity of Care Document ---
Author Organization [facility] ter Address [address] [place] [address]- Care Team Providers Care Cord Cutter Name Role Phone Karen COLLINS, Genna Rolon Primary Care Physician [place] [facility] [place] Date(s): 08/30/21 - 10/09/[address] [address]- Attending Physician: Vernon Coreas Admitting Physician: Vernon Coreas Referring Physician: Vernon Coreas Allergies, Adverse Reactions, Alerts No Known Allergies [...]
--- OUTSIDE RECORDS SUMMARY | 2024-05-19 14:39 | XMS_ITS | Continuity of Care Document ---
Author Organization [facility] Address [address] [place] [address] [place] [address]- Care Team Providers Care Credit Risk Management Director Name Role Phone Karen COLLINS, Genna Rolon Primary Care Physician Encounter [facility] Date(s): 04/11/22 - 04/18/[address] [place] [address] Attending Physician: Boubacar MS,RD,LDN, Shellie Sotomayor Allergies, Adverse Reactions, Alerts No Known Allergies [...] Effective Dates Status Health Status Inform ant Binge eating disorder, mild, in partial remission(Confirmed) Active Hypercholesteremia(Confirmed) Active Obese class II(Confirmed) Active Leg pain(Confirmed) Active Prediabetes(Confirmed) Active Social History Social History Type Response Smoking Status Never (less than 100 in lifetime) entered on: 08/16/21 Sex
--- OUTSIDE RECORDS SUMMARY | 2024-05-19 14:39 | XMS_ITS | Continuity of Care Document ---
Author Organization [address] [place] [address]- Care Team Providers Care Outbound Sales Specialist Name Role Phone Genna Jones MD Primary Care Physician Encounter [facility] [place] Date(s): 08/01/22 - 08/31/[address] [place] [address]- Attending Physician: Pierce Moreland Admitting Physician: AdmPierce grossman Referring Physician: AdmtrPierce Allergies, Adverse Reactions, Alerts No Known Allergies [...] 100 in lifetime) entered on: 08/16/21 Sex Note * Event Display: Non BH Lab Results Authored Date: * Event Display: Non BH Lab Results Authored Date: Patient Care team information Care Team Personnel Name: Genna Jones MD Position: S Outreach Member Role: PCP Address: Address: [address] [place] [address]- Care Team Related Persons Name: DANA FOUNTAIN Address: home [address] [place] [address] Name: NICK COLE Address: [place] [address]
--- OUTSIDE RECORDS SUMMARY | 2024-05-19 14:39 | XMS_ITS | Continuity of Care Document ---
Author Organization [facility] Address Unknown Care Team Providers Care Labor Trainer Name Role Phone Karen COLLINS, Genna Rolon Primary Care Physician Encounter [facility] [place] Date(s): 02/08/22 - 02/15/22 [facility] Attending Physician: Boubacar ZAPATA,RD,LDN, Shellie Sotomayor Allergies, Adverse Reactions, Alerts No [...]
--- OUTSIDE RECORDS SUMMARY | 2024-05-19 14:39 | XMS_ITS | Continuity of Care Document ---
Author Organization [facility] Address Unknown Care Team Providers Care Adjuster Piano Action Name Role Phone Not on Staff, PCP Primary Care Physician Unavail able [place] [facility] [place] 07/29/21 - 08/28/21 [facility] Allergies, Adverse Reactions, Alerts Substance Reaction Severity Status NKA Active Medications Vitamin D3 1000 intl units oral [...]
--- OUTSIDE RECORDS SUMMARY | 2024-05-19 14:39 | XMS_ITS | Continuity of Care Document ---
Author Organization [facility] Address [address] [address] [place] [address]- Care Team Providers Care Coding Validator Name Role Phone Genna Jones MD Primary Care Physician [place] [facility] Date(s): 04/26/22 - 05/03/[address] [place] [address]- [place] Attending Physician: Boubacar MS,RD,LDN, Shellie Sotomayor Allergies, [...] II(Confirmed) Active Leg pain(Confirmed) Active Prediabetes(Confirmed) Active Vital Signs Most recent to oldest [Reference Range]: 1 Weight 106.8 kg (04/26/22 11:18 AM) Weight Obtained Via Standing scale (04/26/22 11:18 AM) Social History Social History Type Response Smoking Status Never (less than 100 in lifetime) entered on: 08/16/21 Sex Care Team Personnel Name: Genna Jones MD Address: [address] [place] [id number]
--- OUTSIDE RECORDS SUMMARY | 2024-05-19 14:39 | XMS_ITS | Continuity of Care Document ---
Author Organization [facility] Address Unknown Care Team Providers Care Service Delivery Director Name Role Phone Genna Jones MD Primary Care Phys[id number] - 01/16/22 [facility] Encounter Diagnosis Obese class II(Discharge Diagnosis) - 01/09/22 Attending Physician: Librado Crum MD Referring Physician: Genna Jones MD Allergies, Adverse Reactions, Alerts No Known [...] II(Confirmed) Active Leg pain(Confirmed) Active Prediabetes(Confirmed) Active Diagnosis Diagnosis Type Effective Dates Health Status Cl inical Service Informant Obese class II Discharge Diagnosis 01/09/22 Vital Signs Most recent to oldest [Reference Range]: 1 Height 170 cm (01/09/22 1:26 PM) Weight 110.4 kg (01/09/22 1:26 PM) Pulse Rate [55-90 bpm] 86 bpm (01/09/22 1:26 PM) Body Mass Index [18.5-24.99] 38.2 *>HHI* (01/09/22 1:26 PM) Blood Pressure [90-138/55-84 mm Hg] 147/ 81mm Hg *H* (01/09/22 1:26 PM) Respiratory Rate [16-30 br/min] 16 br/mi n (01/09/22 1:26 PM) Temperature [96.8-100.4 DegF] 96.7 DegF *L* (01/09/22 1:26 PM) Blood pressure sites Arm, right (01/09/22 1:26 PM) Temperature Route Temporal (01/09/22 1:26 PM) Weight Obtained Via Standing scale (01/09/22 1:26 PM) Social History Social History Type Response Smoking Status Never (less than 100 in lifetime) entered on: 08/16/21 Sex
--- OUTSIDE RECORDS SUMMARY | 2024-05-19 14:39 | XMS_ITS | Continuity of Care Document ---
Author Organization [facility] Address [address] [place] [address] [address] [place] [address]- Care Team Providers Care Patient Safety Sitter Name Role Phone Genna Jones MD Primary Care Physician Encounter [facility] [place] Date(s): 05/24/22 - 06/23/[address] [place], [place] [address] Allergies, Adverse Reactions, Alerts No Known Allergies [...] Personnel Name: Genna Jones MD Address: Address: [address] [place] [id number]
--- OUTSIDE RECORDS SUMMARY | 2024-05-19 14:39 | XMS_ITS | Continuity of Care Document ---
Author Organization [facility] Address [address] [place] [address] [address] [place] [address]- Care Team Providers Care Production Control Coordinating Clerk Name Role Phone Delilah Turner NP Primary Care Physicia n Encounter [facility] Date(s): 12/22/22 - 01/21/[address] [place] [address]- Attending Physician: Pierce Moreland Admitting Physician: Pierce Moreland Referring Physician: AdmtrPierce Allergies, Adverse Reactions, Alerts [...] 100 in lifetime) entered on: 08/16/21 Sex Laboratory * Event Display: Non BH Lab Results Authored Date: * Event Display: Non BH Lab Results Authored Date: Patient Care team information Care Team Personnel Name: Delilah Turner NP Position: Reference Physician Member Role: PCP Address: Address: [address] [place] [address]- Care Team Related Persons Name: DANA FOUNTAIN Address: home [address] [place] [address] Name: NICK COLE Address: [place] [address]
--- OUTSIDE RECORDS SUMMARY | 2024-05-19 14:39 | XMS_ITS | Continuity of Care Document ---
Author Organization [facility] Address Unknown Care Team Providers Care Factory Superintendent Name Role Phone Not on Staff, PCP Primary Care Physician Unavail able En[place] [facility] [place] Date(s): 07/25/21 - 08/24/21 [facility] Allergies, Adverse Reactions, Alerts Substance [...]
--- OUTSIDE RECORDS SUMMARY | 2024-05-19 14:39 | XMS_ITS | Continuity of Care Document ---
Author Organization [facility] Address Unknown Care Team Providers Care Agricultural Specialist Name Role Phone Not on Staff, PCP Primary Care Physician Unavail able Encounter [facility] [place] Date(s): 07/19/21 - 08/18/21 [facility] Allergies, Adverse [...]
--- OUTSIDE RECORDS SUMMARY | 2024-05-19 14:39 | XMS_ITS | Continuity of Care Document ---
Author Organization [facility] ter Address [address] [place] [address]- Care Team Providers Care Customer Service Security Officer Name Role Phone Karen COLLINS, Genna Rolon Primary Care Physician En[facility] [place] Date(s): 05/26/22 - 08/18/[address] [address] Attending Physician: Librado Crum MD Admitting Physician: Librado Crum MD Allergies, Adverse Reactions, [...] Leg pain Confirmed Active Prediabetes Confirmed Active Vital Signs Most recent to oldest [Reference Range]: 1 Height 167.64 cm (07/18/22 4:18 PM) Weight 106.82 kg (07/18/22 4:18 PM) Body Mass Index [18.5-24.99 kg/m2] 38.01 kg/m2 *>HHI* (07/18/22 4:18 PM) Dry Weight 106.82 kg (07/18/22 4:18 PM) Dry Weight Obtained Via Patient/family s tated (07/18/22 4:18 PM) Social History Social History Type Response Smoking Status Never (less than 100 in lifetime) entered on: 08/16/21 Sex Note * Event Display: Adult Preadmission Health Questionnaire Authored Date: Patient Care team information Care Team Personnel Name: Karen COLLINS, Genna Rolon Position: S Outreach Member Role: PCP Address: Address: [address] [place] [address]- Care Team Related Persons Name: DANA FOUNTAIN Address: home [address] [place] [address] Name: NICK COLE Address: [place] [address]
--- OUTSIDE RECORDS SUMMARY | 2024-05-19 14:39 | XMS_ITS | Continuity of Care Document ---
Author Organization [facility] Address [address] [place] [address] [address] [place] [address]- Care Team Providers Care Arch Support Technician Name Role Phone Johnny SINHA, Delilah Ruiz Primary Care Physicia n [place] [facility] [place] 11/22/22 - 01/21/[address] [place] [address]- Attending Physician: Boubacar MS,RD,LDN, Shellie Sotomayor Allergies, [...] Reference Physician Member Role: PCP Address: Address: [address] [place] [address]- Care Team Related Persons Name: DANA FOUNTAIN Address: home [address] [place] [address] Name: NICK COLE Address: [place] [address]
--- OUTSIDE RECORDS SUMMARY | 2024-05-19 14:39 | XMS_ITS | Continuity of Care Document ---
Author Organization [facility] Address [address] [place] [address] [address] [place] [address]- Care Team Providers Care Roller Mill Operator Name Role Phone Genna Jones MD Primary Care Physician En[place] [facility] [place] Date(s): 07/19/22 - 08/18/[address] [place] [address]- Allergies, Adverse Reactions, Alerts No Known Allergies [...] Team Personnel Name: Genna Jones MD Position: [facility] Outreach Member Role: PCP Address: Address: [address] [place] [address]- Care Team Related Persons Name: DANA FOUNTAIN Address: home [address] [place] [address] Name: NICK COLE Address: [place] [address]
--- OUTSIDE RECORDS SUMMARY | 2024-05-19 14:39 | XMS_ITS | Continuity of Care Document ---
Author Organization [facility] Address [address] [place] [address]- Care Team Providers Care Anatomic Pathology Assistant Name Role Phone Genna Jones MD Primary Care Physician [id number] Date[facility] 04/17/22 - 05/17/22 [facility] [address] [place] [address]- [place] Attending Physician: Pierce Moreland Admitting Physician: AdmPierce [...] Team Personnel Name: Genna Jones MD Address: [address] [place] [address]
--- OUTSIDE RECORDS SUMMARY | 2024-05-19 14:39 | XMS_ITS | Continuity of Care Document ---
Author Organization [facility] Address [address] [place] [address] [address] [place] [address]- Care Team Providers Care Geology Teacher Name Role Phone Genna Jones MD Primary Care Physician [place] [facility] [place] 05/25/22 - 09/08/[address] [place] [address]- Attending Physician: Boubacar MS,RD,LDN, Shellie Sotomayor Allergies, [...] Team Personnel Name: Genna Jones MD Position: [facility] Outreach Member Role: PCP Address: Address: [address] [place] [address]- Care Team Related Persons Name: DANA FOUNTAIN Address: home [address] [place] [address] Name: NICK COLE Address: [place] [address]
--- OUTSIDE RECORDS SUMMARY | 2024-05-19 14:39 | XMS_ITS | Continuity of Care Document ---
Author Organization [facility] Address Unknown Care Team Providers Care Expeditionary Fighting Vehicle Crewman Name Role Phone Karen COLLINS, Genna Rolon Primary Care [id number] 11/11/21 - 01/22/22 [facility] Attending Physician: Boubacar ZAPATA,RD,LDN, [...]
--- OUTSIDE RECORDS SUMMARY | 2024-05-19 14:40 | XMS_ITS | Continuity of Care Document ---
Author Organization [facility] Address [address] [place] [address] [address] [place] [address]- Care Team Providers Care Account Resolution Expert Name Role Phone Genna Jones MD Primary Care Physician Encounter [facility] [place] Date(s): 05/16/22 - 06/15/[address] [place], [place] [address] Allergies, Adverse Reactions, Alerts No Known Allergies [...] Personnel Name: Genna Jones MD Address: Address: [address] [place] [address]
--- OUTSIDE RECORDS SUMMARY | 2024-05-19 14:40 | XMS_ITS | Continuity of Care Document ---
Author Organization [facility] Address Unknown Care Team Providers Care Certified Prosthetist/Orthotist Name Role Phone Not on Staff, PCP Primary Care Physician Unavail able [place] [facility] [place] 07/20/21 - 08/19/21 [facility] Allergies, Adverse Reactions, Alerts Substance [...]
--- OUTSIDE RECORDS SUMMARY | 2024-05-19 14:40 | XMS_ITS | Continuity of Care Document ---
Author Organization [facility] Address Unknown Care Team Providers Care Water Chemist Name Role Phone Karen COLLINS, Genna Rolon Primary Care Physician Encounter [facility] [place] Date(s): 11/11/21 - 11/18/21 [facility] Attending Physician: Boubacar ZAPATA,RD,LDN, [...]
--- OUTSIDE RECORDS SUMMARY | 2024-05-19 14:40 | XMS_ITS | Continuity of Care Document ---
Author Organization [facility] Address [address] [place] [address] [address] [place] [address]- Care Team Providers Care Child Nutrition Manager Name Role Phone Johnny SINHA, Delilah Ruiz Primary Care Physicia n Encounter [facility] [place] Date(s): 10/20/22 - 11/19/[address] [place] [address]- Allergies, Adverse Reactions, Alerts No Known Allergies [...] Reference Physician Member Role: PCP Address: Address: [address] [place] [address]- Care Team Related Persons Name: DANA FOUNTAIN Address: home [address] [place] [address] Name: NICK COLE Address: [place] [address]
--- OUTSIDE RECORDS SUMMARY | 2024-05-19 14:40 | XMS_ITS | Continuity of Care Document ---
Author Organization [facility] Address [address] [place] [address] [address] [place] [address]- Care Team Providers Care Land Surveying Survey Worker Name Role Phone Genna Jones MD Primary Care Physician [place] [facility] [place] Date(s): 05/02/22 - 06/01/[address] [place] [id number] Allergies, Adverse Reactions, Alerts No Known Allergies [...] Personnel Name: Genna Jones MD Address: Address: [address] [place] [id number]
--- OUTSIDE RECORDS SUMMARY | 2024-05-19 14:40 | XMS_ITS | Continuity of Care Document ---
Author Organization [facility] Address [address] [place] [address] [address] [place] [address]- Care Team Providers Care Spring Assembler Supervisor Name Role Phone Genna Jones MD Primary Care Physician Encounter [facility] [place] Date(s): 05/25/22 - 08/04/[address] [place] [address]- Attending Physician: Boubacar MS,RD,LDN, Shellie Sotomayor Allergies, [...] Team Personnel Name: Genna Jones MD Position: [facility] Outreach Member Role: PCP Address: Address: [address] [place] [address]- Care Team Related Persons Name: DANA FOUNTAIN Address: home [address] [place] [address] Name: NICK COLE Address: [place] [address]
--- OUTSIDE RECORDS SUMMARY | 2024-05-19 14:40 | XMS_ITS | Continuity of Care Document ---
Author Organization [facility] Address Unknown Care Team Providers Care Floor Framer Name Role Phone Not on Staff, PCP Primary Care Physician Unavail able Encounter [facility] [place] Date(s): 08/12/21 - 09/11/21 [facility] Allergies, Adverse Reactions, Alerts No Known Allergies [...]
--- OUTSIDE RECORDS SUMMARY | 2024-05-19 14:40 | XMS_ITS | Continuity of Care Document ---
Author Organization [facility] Address [address] [facility], [address] Floor, [address] [place] [address]- Care Team Providers Care Entertainment Production Professional Name Role Phone Johnny SINHA, Delilah Ruiz Primary Care Physicia n [place] [facility] [place]s): 11/10/22 - 12/10/22 [facility] [address] [facility], [address]rd Floor, [address] [place] [address]- Allergies, Adverse Reactions, Alerts No Known Allergies [...] Reference Physician Member Role: PCP Address: Address: [address] [place] [address]- [place] Care Team Related Persons Name: DANA FOUNTAIN Address: home [address] [place] [address] Name: NICK COLE Address: [place] [address]
--- OUTSIDE RECORDS SUMMARY | 2024-05-19 14:40 | XMS_ITS | Continuity of Care Document ---
Author Organization [facility] Address Unknown Care Team Providers Care Rehabilitation Teacher Name Role Phone Not on Staff, PCP Primary Care Physician Unavail able Encounter [facility] [place] Date(s): 08/16/21 - 08/23/21 [facility] Encounter Diagnosis Obesity (BMI 30-39.9)(Discharge Diagnosis) - 08/16/21 Attending Physician: Vernon Coreas Referring Physician: Not on Staff, Referring MD Allergies, Adverse Reactions, Alerts Substance Reaction Severity [...] Dates Health Status Cl inical Service Informant Obesity (BMI 30-39.9) Discharge Diagnosis 08/16/21 Procedures Procedure Date Related Diagnosis Body Site Status Bilateral tubal ligation Completed Procedure on cervix Compl eted Vital Signs Most recent to oldest [Reference Range]: 1 Height 170 cm (08/16/21 8:55 AM) Weight 108.2 kg (08/16/21 8:55 AM) Pulse Rate [55-90 bpm] 81 bpm (08/16/21 8:55 AM) Body Mass Index [18.5-24.99] 37.44 *>HHI* (08/16/21 8:55 AM) Blood Pressure [90-138/55-84 mm Hg] 109/ 75mm Hg (08/16/21 8:55 AM) Temperature [96.8-100.4 DegF] 97.5 DegF (08/16/21 8:55 AM) Blood pressure sites Arm, left (08/16/21 8:55 AM) Temperature Route Temporal (08/16/21 8:55 AM) Weight Obtained Via Standing scale (08/16/21 8:55 AM) Social History Social History Type Response Smoking Status Never (less than 100 in lifetime) entered on: 08/16/21 Sex
--- OUTSIDE RECORDS SUMMARY | 2024-05-19 14:40 | XMS_ITS | Continuity of Care Document ---
Author Organization [facility] Address [address] [place] [address] [address] [place] [address]- Care Team Providers Care Chess Instructor Name Role Phone Genna Jones MD Primary Care Physician Encounter [facility] [place] Date(s): 05/25/22 - 08/04/[address] [place] [address]- Attending Physician: Librado Crum MD Allergies, Adverse [...] Team Personnel Name: Genna Jones MD Position: [facility] Outreach Member Role: PCP Address: Address: [address] [place] [address]- Care Team Related Persons Name: DANA FOUNTAIN Address: home [address] [place] [address] Name: NICK COLE Address: [place] [address]
--- OUTSIDE RECORDS SUMMARY | 2024-05-19 14:40 | XMS_ITS | Continuity of Care Document ---
Author Organization [facility] Address [address] [place] [address] [address] [place] [address]- Care Team Providers Care Transport Coordinator Name Role Phone Johnny SINHA, Delilah Ruiz Primary Care Physicia n Encounter [facility] [place] Date(s): 12/01/22 - 12/31/[address] [place] [address]- Allergies, Adverse Reactions, Alerts No Known Allergies [...] Reference Physician Member Role: PCP Address: Address: [address] [place] [address]- Care Team Related Persons Name: DANA FOUNTAIN Address: home [address] [place] [address] Name: NICK COLE Address: [place] [address]
--- OUTSIDE RECORDS SUMMARY | 2024-05-19 14:40 | XMS_ITS | Continuity of Care Document ---
Author Organization [facility] Address [address] [place] [address] [address] [place] [address]- Care Team Providers Care Ecological Economist Name Role Phone Genna Jones MD Primary Care Physician Encounter [facility] [place] Date(s): 05/05/22 - 06/04/[address] [place] [id number] Allergies, Adverse Reactions, Alerts [...] Personnel Name: Genna Jones MD Address: Address: [address] [place] [id number]
--- OUTSIDE RECORDS SUMMARY | 2024-05-19 14:40 | XMS_ITS | Continuity of Care Document ---
Author Organization [facility] Address [address] [place] [address] [address] [place] [address]- Care Team Providers Care Tire Rebuilder Name Role Phone Genna Jones MD Primary Care Physician Encounter [facility] [place] Date(s): 05/25/22 - 09/08/[address] [place] [address]- Attending Physician: Librado Crum MD Allergies, Adverse [...] Team Personnel Name: Genna Jones MD Position: [facility] Outreach Member Role: PCP Address: Address: [address] [place] [address]- Care Team Related Persons Name: DANA FOUNTAIN Address: home [address] [place] [address] Name: NICK COLE Address: [place] [address]
--- OUTSIDE RECORDS SUMMARY | 2024-05-19 14:40 | XMS_ITS | Continuity of Care Document ---
Author Organization [facility] Address Unknown Care Team Providers Care Carriage Feeder Name Role Phone Not on Staff, PCP Primary Care Physician Unavail able Encounter [facility] [place] Date(s): 07/22/21 - 08/21/21 [facility] Allergies, Adverse Reactions, Alerts [...]
--- OUTSIDE RECORDS SUMMARY | 2024-05-19 14:40 | XMS_ITS | Continuity of Care Document ---
Author Organization [facility] Address [address] [place] [address] [address] [place] [address]- Care Team Providers Care Turner In Name Role Phone Genna Jones MD Primary Care Physician Encounter [facility] [place] Date(s): 05/22/22 - 06/21/[address] [place], [place] [address] Allergies, Adverse Reactions, Alerts No Known Allergies [...] Name: Genna Jones MD Address: Address: [address] [place] [address]
--- OUTSIDE RECORDS SUMMARY | 2024-05-19 14:40 | XMS_ITS | Continuity of Care Document ---
Author Organization [facility] Address [address] [place], [place] [address]i ve [address] [place] [address]- Care Team Providers Care Supplier Quality Manager Name Role Phone Johnny SNIHA, Delialh Ruiz Primary Care Physicia n [place] [facility] [place] 10/31/22 - 11/30/[address] [place] [address]- Allergies, Adverse Reactions, Alerts No Known Allergies [...] Physician Member Role: PCP Address: Address: [address] [place] [address]- [place] Care Team Related Persons Name: DANA FOUNTAIN Address: home [address] [place] [address] Name: NICK COLE Address: [place] [address]
--- OUTSIDE RECORDS SUMMARY | 2024-05-19 14:40 | XMS_ITS | Continuity of Care Document ---
Author Organization [facility] Address Unknown Care Team Providers Care Commercial Loan Administrator Name Role Phone Karen COLLINS, Genna Rolon Primary Care Physician Encounter [id number] Date(s): 02/22/22 - 03/01/22 [facility] Attending Physician: Boubacar MS,RD,LDN, Shellie Sotomayor Allergies, [...] oldest [Reference Range]: 1 Weight 106.8 kg (02/22/22 2:34 PM) Weight Obtained Via Standing scale (02/22/22 2:34 PM) Social History Social History Type Response Smoking Status Never (less than 100 in lifetime) entered on: 08/16/21 Sex
--- NOTE | 2024-05-19 15:04 | AM.OFFVISNUR ---
Intake Visit Reasons: Guardisil inj Allergies No Known Allergies Allergy (Verified 05/08/24 14:34) Nursing Note Madison is here today for her 1st Gardasil injection. She has no allergies and no complaints. Pt is aware she needs to remain in waiting room for 15 min post inj. pt to return in 2 mos for 2nd injection. Assessment & Plan Assessment & Plan Orders: Orders Human Papillomavirus Immunization Today Z23 - Encounter for immunization Medications: New Gardasil 9 (PF) (human papillomav vac,9-kenn(PF)) 0.5 mL IM ONCE 0.5 mL 0RF NS Z23 - Encounter for immunization
== END 2024-05-19 15:02 | disposition home or self-care (01) ==
LOC: HO.HWS 14:37
PROVIDERS: PCP Internal Medicine; Visit Provider Advanced Practice Midwife
DX: Z23 Encounter for immunization (principal)

== ENCOUNTER → 2024-05-19 14:37 | Outpatient (BNVA) | payer MEDICAID, SELFPAY | PROVIDERS: PCP Internal Medicine; Visit Provider Advanced Practice Midwife | DX: Z23 Encounter for immunization (principal) | CPT/HCPCS: 90471; 90651; 99211 ==

== ENCOUNTER 2024-06-02 09:30 | Outpatient (REF) | payer MEDICAID, SELFPAY ==
[2024-06-02 11:23] LABS: MANUAL DIFF FLAG NO
[2024-06-02 11:33] LABS: Basophils Percent Auto 0.8 % (0-2); Eosinophils Absolute Auto 0.1 X10*3/uL (0.0-0.4); Eosinophils Percent Auto 2.8 % (0-4); Hematocrit 37.6 % (37.0-47.0); Hemoglobin 12.1 g/dl (12.0-16.0); Imm Gran Abs Auto 0.01 X10*3/uL (0.00-0.03); Imm Gran Pct Auto 0.3 % (0.0-0.4); Lymphocytes Percent Auto 51.8 % (20-40); Mean Corpuscular HGB Conc 32.2 g/dl (31.0-35.0); Mean Corpuscular Hemoglobin 26.3 pg (27.0-33.0); Mean Corpuscular Volume 81.7 fL (80.0-98.0); Mean Platelet Volume 10.5 fL (9.4-12.3); Monocytes Absolute Auto 0.2 X10*3/uL (0.1-1.2); Monocytes Percent Auto 5.9 % (2-11); Neutrophils Absolute Auto 1.5 x10*3/uL (2.0-8.3); Neutrophils Percent Auto 38.4 % (45-73); Platelet Count 271 X10*3/uL (160-400); Red Cell Distribution Width 14.6 % (11.0-16.0); White Blood Count 3.9 X10*3/uL (4.8-10.8)
[2024-06-02 11:48] LABS: Alanine Aminotransferase 12 U/L (0-31); Albumin Level 3.9 g/dL (3.5-5.0); Alkaline Phosphatase 73 U/L (39-117); Anion Gap 10 (12-20); Aspartate Amino Transferase 15 U/L (5-31); Bilirubin Total 0.4 mg/dL (0.0-1.0); Blood Urea Nitrogen 13 mg/dL (9-16); Calcium 9.3 mg/dL (8.4-10.2); Carbon Dioxide 27 mmol/L (22-29); Chloride 106 mmol/L (96-108); Cholesterol 209 mg/dL (<200); Estimated Glomerular Filt Rate > 60; Glucose Random 85 mg/dL (60-115); HDL Cholesterol 55 mg/dL (>40); LDL Cholesterol Calculated 141 mg/dL (<100); Potassium 3.9 mmol/L (3.3-5.1); Sodium 139 mmol/L (135-145); Total Protein 7.1 g/dL (6.5-8.0); Triglycerides 68 mg/dL (<150)
[2024-06-02 12:07] LABS: Syphilis Screen Nonreactive (Nonreactive)
[2024-06-02 12:08] LABS: HBS Num1 0.44 mIU/mL (0-7.99); HBc Num1 0.07 S/CO (0.00-0.79); HBsAGNum1 0.36 S/CO (0.00-0.99); Hepatitis A Antibody IgM 0.24 Index (0-0.79); Hepatitis B Core Antibody Nonreactive (Nonreactive); Hepatitis B Surface Antigen Negative (Negative); ~HepC Num1 0.16 S/CO (0.00-0.79); ~Hepatitis A Antibody IgM Nonreactive (Nonreactive); ~Hepatitis B Surface Antibody NONREACTIVE (Nonreactive); ~Hepatitis C Antibody Nonreactive (Nonreactive)
[2024-06-02 12:12] LABS: TSH reflex Free T4 1.18 uIU/mL (0.32-4.0); Vitamin D 25-OH Total 38.7 ng/mL (>30)
[2024-06-02 12:30] LABS: Folate 10.4 ng/mL (> or = 4.0); Vitamin B12 721 pg/mL (200-900)
[2024-06-02 13:49] LABS: Reflex LDLD? No
== END 2024-06-02 09:31 | disposition home or self-care (01) ==
LOC: HO.HHCL 09:30
PROVIDERS: Visit Provider Internal Medicine
DX: A63.0 Anogenital (venereal) warts (principal); R73.01 Impaired fasting glucose; K59.04 Chronic idiopathic constipation; Z91.89 Other specified personal risk factors, not elsewhere classified
CPT/HCPCS: 36415; 80053; 80061; 82306; 82607; 82746; 84443; 85025; 86704; 86706; 86709; 86780; 86803; 87340

== ENCOUNTER 2024-07-08 10:57 | Outpatient (REF) | payer MEDICAID, SELFPAY | END 2024-07-08 10:58 | disposition home or self-care (01) | LOC: HO.HHCLNP 10:57 | PROVIDERS: Visit Provider Internal Medicine | DX: R39.9 Unspecified symptoms and signs involving the genitourinary system (principal) | CPT/HCPCS: 87086; 87088; 87186 ==

== ENCOUNTER 2024-07-22 14:38 | Outpatient (AMB) | payer MEDICAID, SELFPAY ==
[2024-07-22 15:04] VITALS: BMI 26.3
--- NOTE | 2024-07-22 15:04 | AM.OFFVISNUR ---
Vital Signs 07/22/24 15:04 Height 5 ft 6 in Weight 163 lb BMI 26.3 Intake Visit Reasons: 2nd Gardisil inj Allergies No Known Allergies Allergy (Verified 05/08/24 14:34) Nursing Note Madison is here today for her scheduled 2nd Gardasil vaccine. Pt tolerated well and had no complaints. Pt was scheduled for her 3rd vaccine in 6 months. Immunizations Gardasil 9 (PF) 0.5 mL intramuscular suspension Performing Provider: Reyna Vasquez CNM [place] [facility] Administered by: Vonnie Garcia LPN on 07/22/24 15:05 Dose Route Admin Location Dispensed Lot Number Expiration Date [facility] Plant Controller 0.5 mL IM Right Deltoid 0.5 mL [id number] 09/14/25 [id number] [employer] VIS Given Date VIS Provided VIS Publication Date 07/22/24 Single Vaccine 21 Eligibility Eligibility Date Funding Source Not [facility] Eligible 07/22/24 Private Assessment & Plan Assessment & Plan Orders: Orders Human Papillomavirus Immunization Today Z23 - Encounter for immunization Medications: New Gardasil 9 (PF) (human papillomav vac,9-kenn(PF)) 0.5 mL IM ONCE 0.5 mL 0RF NS Z23 - Encounter for immunization
== END 2024-07-22 14:46 | disposition home or self-care (01) ==
LOC: HO.HWS 14:38
PROVIDERS: PCP Internal Medicine; Visit Provider Advanced Practice Midwife
DX: Z23 Encounter for immunization (principal)

== ENCOUNTER → 2024-07-22 14:38 | Outpatient (BNVA) | payer MEDICAID, SELFPAY | PROVIDERS: PCP Internal Medicine; Visit Provider Advanced Practice Midwife | DX: Z23 Encounter for immunization (principal) | CPT/HCPCS: 90471; 90651; 99211 ==

== ENCOUNTER 2024-08-25 15:51 | Outpatient (REF) | payer MEDICAID, SELFPAY ==
[2024-08-26 13:14] LABS: Bacterial Vaginosis PCR NEGATIVE (Negative); Candida Group PCR NOT DETECTED (Not Detect); Candida glab krusei PCR NOT DETECTED (Not Detect); Trichomonas vaginalis PCR NOT DETECTED (Not Detect)
[2024-08-26 13:52] LABS: CT PCR NOT DETECTED (Not Detect.); NG PCR NOT DETECTED (Not Detect.)
== END 2024-08-25 15:52 | disposition home or self-care (01) ==
LOC: HO.HHCLNP 15:51
PROVIDERS: Visit Provider Internal Medicine
DX: N76.0 Acute vaginitis (principal)
CPT/HCPCS: 0352U; 87491; 87591

== ENCOUNTER 2024-09-12 14:36 | Outpatient (REF) | payer MEDICAID, SELFPAY | END 2024-09-12 14:37 | disposition home or self-care (01) | LOC: HO.MAMMO 14:36 | PROVIDERS: PCP Internal Medicine; Visit Provider Internal Medicine | DX: Z12.31 Encounter for screening mammogram for malignant neoplasm of breast (principal) | CPT/HCPCS: 77063; 77067 ==

== ENCOUNTER 2024-09-30 11:56 | Outpatient (REF) | payer MEDICAID, SELFPAY ==
--- NOTE | ~2024-09-30 | MM_ITS ---
EXAMINATION: MM DIAGNOSTIC DIGITAL MAMMOGRAPHY, LEFT CLINICAL INFORMATION: Call back from baseline screening for grouped calcifications in the upper outer quadrant. COMPARISON: Mammography: Baseline screening mammography September 12, 2024. TECHNIQUE: Digital mammography is performed in the following views: CC and MLO magnification views. FINDINGS: There are scattered areas of fibroglandular density (ACR BI-RADS breast composition Category b). There are grouped rounded punctate calcifications in the upper outer quadrant posterior depth. No suspicious masses or other abnormal findings. Results are discussed with the patient at time of visit. MM/MM added views LT IMPRESSION: Grouped calcifications in the upper outer breast posterior depth on baseline screening mammography. Recommend stereotactic core needle biopsy at this time for confirmation. The findings and recommendations were discussed with the patient the procedure will be scheduled. ASSESSMENT: BI-RADS BI-RADS 4 - Suspicious finding RECOMMENDATION: Biopsy recommended This patient's information was entered into a reminder system with a target due date for their next mammogram. Electronically signed by: Ny Matos DO 09/30/2024 01:52 PM [facility]
--- OUTSIDE RECORDS SUMMARY | 2024-09-30 12:49 | XMS_ITS | Clinical Summary ---
Author Organization [facility] Address [address] [place] [address] Care Team Providers Care Pantry Steward/Stewardess Name Role Phone Unavailable Primary Care Provider Unavailabl e Source Comments PLEASE NOTE, if this patient is a minor, it may be UNLAWFUL to discuss sensitive information that is contained in these records (such as FAMILY PLANNING, MENTAL HEALTH or SUBSTANCE ABUSE) with the minor patient's parent or other person without the patient's specific authorization.[facility] Immunizations Name Administration Dates Next Due PFIZER COVID VACCINE, PURPLE CAP, 12+ 01/19/2021 ,12/28/2020 Social History Tobacco Use Types Packs/Day Years Used Date Smoking Tobacco: Never Assessed Social Connections Answer Date Recorded Social Connections and Isolation 0 12/28/2020 Financial Resource Strain Answer Date R ecorded Financial Resource Strain 0 2020 Stress Answer Date Recorded Stress 0 12/28/2020 Physical Activity Answer Date Recorded Physical Activity 0 12/28/2020 Food Insecurity Answer Date Recorded Food 0 12/28/2020 Transportation Needs Answer Date Record ed Transportation 0 12/28/2020 Housing Stability Answer Date Recorded Housing 0 12/28/2020 Safety and Environment Answer Date Anoop rded Safety 0 12/28/2020 Utilities Answer Date Recorded Utilities 0 12/28/2020 Employment Answer Date Recorded Employment 0 12/28/2020 Comments Unknown Sex and Gender Information Value Date Recorded Sex Assigned at Not on file Legal Sex Female 10:41 AM PDT Gender Identity Not on file Sexual Orientation Not on file Plan of Treatment Health Maintenance Due Date Last Done Comments Diabetes Screening 1984 HPV Screening 1984 Hepatitis C Screening 1984 Lipid Screening 1984 Pap + HPV 1984 Tobacco Screening 1984 HIV Screening 1999 Relationship Safety Screening/Counseling 1999 Hypertension Screening (#1) 2002 Imm-Hepatitis B (1 of 3 - 19 + 3-dose series) 2003 Cervical Cancer Screening 2005 Pap Smear 2005 Mvm-MPUWX-20 ( season) 2024 021, 12/28/2020 Imm-Influenza (#1) 2024 09/28/2020, 06/06/2016 Breast Cancer Screening (Mammogram) 2024 Alcohol and Drug Screen 08/27/2024 Depression Annual Screen 08/27/2024 Imm-DTaP/Tdap/Td (3 - Td or Tdap) 09/28/2030 021, 04/16/2020 Cervical Ablation/Cold-Knife Conization Discontinued Cervical Cryotherapy Discontinued Colposcopy Discontinued Endometrial Biopsy Discontinued Excision/Leep Discontinued HPV Genotyping Discontinued Vaginal Pap Discontinued Vulvoscopy Discontinued Insurance [facility] ([facility]) Member Subscriber Plan / Payer (Ef fective 2019-Present) Name:Madison Sethi Relation to Subscriber:Self Name:Madison Sethi Payer ID:[id number] Group ID:Not on file Type:Indemnity Address: [address] [place] [id number]
--- OUTSIDE RECORDS SUMMARY | 2024-09-30 12:49 | XMS_ITS | Encounter Summary ---
Author Organization [employer] Address [address] [facility] [address] [place] [address] Care Team Providers Care Crisis Specialist Name Role Phone Genna Jones MD Primary Care Provider + Reason for Visit * Reason Onset Date Comments Appointment Request 09/25/2024 Encounter Details Date Type Department Care Team ([facility] st Contact Info) Description 09/25/2024 Telephone [facility] MEDICINE [address] [place], [place] [phone] Genna Jones MD [address] [place], [place] [phone] Appointment Request Social History Tobacco Use Types Packs/Day Years Used Date Smoking Tobacco: Never Passive Smoke Exposure: Never Smokeless Tobacco: Never Alcohol Use Standard Drinks/Week Comments Never 0 (1 standard drink = 0.6 oz pur e alcohol) Depression Answer Date Recorded Patient Health Questionnaire-9 Score 6 12/08/2022 Housing Stability Answer Date Recorded What is your housing situation today? I do not have housing (Staying with others, in a hotel, in a assisted, living outside on the street, on a beach, in a car, or in a park 08/14/[address] you li ve. Do you have problems with any of the following? None of the above 08/14/2024 Food Insecurity Answer Date Recorded Within the past 12 months, y ou worried that your food would run out before you got money to buy more: Never True 08/14/2024 Within the past 12 months,th e food you bought just didn't last and you didn't have enough money to get more: Never True Transportation Answer Date Recorded In the past 12 months, has l ack of transportation kept you from medical appts, meetings, work or from getting things needed for daily living? No 08/14/2024 Utilities Answer Date Recorded In the past 12 months, has t he electric, gas, oil or water company threatened to shut off services in your home? No 08/14/2024 Depression Answer Date Recorded Patient Health Questionnaire-2 Score 2 12/08/2022 Internet Access Answer Date Recorded Internet Access Q1 Yes 08/14/2024 Internet Access Q2 Not on file 08/14/2024 Comments No Sex and Gender Information Value Date Recorded Sex Assigned at Female 06/26/2022 10:30 AM EDT Legal Sex Female 10:30 AM EDT Gender Identity Female 06/26/2022 10:30 AM EDT Sexual Orientation Straight 06/26/2022 10 :30 AM EDT documented as of this encounter Miscellaneous Notes * Telephone Encounter - Christine Real MA - 09/26/2024 9:30 AM EST TC made to pt, M informing that she can come in to vaccine clinic without an appt. If pt returns call with questions please message [place]. * Telephone Encounter - Edgar Moore - 09/25/2024 2:42 PM EST Tc from pt stating that she was feeling sick and that she would like to change her [facility] Vaccine Clinic appt 09/25/2024 at 3pm. Pt Contact: documented in this encounter Plan of Treatment Not on file documented as of this encounter Visit Diagnoses Not on filedocumented in this encounter Additional Health Concerns Assessment Noted Time PHQ-9 Depression Total Score: 6 12/09/19 23 9:21 AM EDT documented as of this encounter Care Teams Crisis Specialist Relationship Specialty Start Date End Date Genna Jones MD [address] [place] [address] PCP - General Family Medicine 09/25/18 documented as of this encounter
--- OUTSIDE RECORDS SUMMARY | 2024-09-30 12:49 | XMS_ITS | Clinical Summary ---
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 08/02/2023 Active Multiple Vitamin (multivitamin) capsule Take 1 capsule by mouth Once per day. 90 capsule 3 08/25/2024 Active metroNIDAZOLE (Flagyl) 500 MG tablet Take 1 tablet (500 mg) by mouth 2 times daily for 7 days. 14 tablet 08/25/2024 09/01/19 25 Active Problems Problem Noted Date Diagnosed Date Acute vaginitis 08/25/2024 Assessment & Plan (08/25/2024 4:54 PM EST): It seems to be related to BV, I will rx empirically with Flagyl x 7d and fu results of vaginal swab I gave her info re BV and she understands that it is not an STD. Screening mammogram for breast cancer 08/25/2024 Encounter for preventive health examination 07/29 Assessment & Plan (08/25/2024 5:00 PM EST): Discussed with patient re increase fresh fruit and vegetable intake. Counseled re moderate exercise as tolerated, up to 20min/d Patient feels safe at home. PAP smear: UTD, next one due on 2028 Mammogram: TBO Eye exam: UTD, next one due on 05/2025 CRC screen: High risk CRC, needs colonoscopy, she was referred last appt, info re GI referral given today. Lipids/FBS: UTD, next ones due on 05/2025 Vaccinations: Started Hep B series today, declined Covid booster. FU with [employer] SUPERVISOR re HPV #3 Dental visit: UTD, next one due on 08/2024 Colon cancer high risk 05/15/2024 Assessment & Plan (05/15/2024 9:37 AM EDT): Pt's mother at age 32 from colon cancer. I advised pt to have colonoscopy. I will refer to GI. Bariatric surgery status 09/20/2023 Chronic idiopathic constipation 09/04/2023 Assessment & Plan (05/15/2024 9:38 AM EDT): Advised regarding increase hydration and fiber intake such a prunes, powders, etc. Add Colace 100 mg. Assessment & Plan (09/11/2023 8:54 PM EST): Start Colace + Bisacodyl Genital warts 09/04/2023 Assessment & Plan (09/11/2023 8:59 PM EST): Unclear if related to HPV, ro other STI, syphilis? Chlamydia? I will order RPR. Contact [employer]VISOR for genital exam, PAP is due on 01/2024 ASCUS with positive high risk HPV cervical 09/04 Assessment & Plan (09/11/2023 9:00 PM EST): PAP smear pending on 01/2024 Tenosynovitis of elbow 01/23/2023 Assessment & Plan (01/23/2023 9:34 AM EDT): refer to OT Use elbow brace recommended accupuncture and use of diclofenac gel and tylenol PRN THAKKAR (dyspnea on exertion) 12/08/2022 Assessment & Plan (12/08/2022 11:42 AM EDT): Most likely related to obesity. Counseled regarding weight reduction FU after sleep apnea results, may do an echo if she has MARQUITA FU in 3 months. Decreased vision 12/08/2022 Assessment & Plan (12/08/2022 11:42 AM EDT): Refer to Optometry. Family hx of colon cancer 12/08/2022 Assessment & Plan (12/08/2022 11:42 AM EDT): Mother of colon cancer at age 32?, refer to GI for further evaluation Adjustment disorder with anxious mood 12/08/2022 Abnormal uterine bleeding 12/07/2022 Hypercholesteremia 10/17/2022 Overview (10/22/2022): -Last lipids: TC 195, HDL 47, LDL 132, TG Jul -Lifestyle interventions encouraged Assessment & Plan (07/08/2024 6:06 PM EST): She's off atorvastatin for few months. She will continue off meds for now. Congratulated her on weight reduction, she will continue healthier diet and fu lipids in 1y. Assessment & Plan (01/23/2023 9:35 AM EDT): Tolerates atorvastatin well repeat lipids and LFTs in 3 months and FU with me We discussed re rx options. She wants to be more strict with life style modifications. Recommended moderate amount of exercise and increased consumption of fruit, vegetables, fish and high fiber foods. We discussed about avoiding consumption of highly saturated fats or trans fats. Assessment & Plan (12/08/2022 11:40 AM EDT): Repeat lipid profile and FU in 3 months We discussed re rx options. She wants to be more strict with life style modifications. Recommended moderate amount of exercise and increased consumption of fruit, vegetables, fish and high fiber foods. We discussed about avoiding consumption of highly saturated fats or trans fats. Prediabetes 10/17/2022 Overview (10/22/2022): -Last A1c 5.7% May 2021. Repeat ordered by PCP -Lifestyle interventions encouraged Vitamin D deficiency 11/21/2018 Assessment & Plan (01/23/2023 9:35 AM EDT): pt tolerates vitamin D well complete 12 weeks counseled regarding increasing outdoor exercises Assessment & Plan (12/08/2022 11:41 AM EDT): Repeat vit d levels counseled regarding outdoor exercise IFG (impaired fasting glucose) 11/21/2018 Assessment & Plan (05/15/2024 9:37 AM EDT): I have discussed with patient regarding increasing physicial activity and decrease calorie intake I'll check FBS with next set of labs. To check RBS at next visit. FU with me in 6 months. Assessment & Plan (12/08/2022 11:40 AM EDT): A1C is at goal I have discussed with patient regarding increasing physicial activity and decrease calorie intake I'll check FBS with next set of labs. To check RBS at next visit. FU every 6 months Obesity 11/21/2018 Overview (09/11/2023): Sp gastric sleeve on 08/13/23, Dr Elliott. Assessment & Plan (09/11/2023 9:00 PM EST): Doing well sp bariatric surgery. FU clsoely with Dr Elliott. Continue MVI patch FU with surgeon Check ferritin, Vit D and B12 levels in 1y Anxiety 09/25/2018 Varicose veins of lower extremity 06/06/2016 Resolved Problems Problem Noted Date Diagnosed Date Resolved Date Acute cystitis with hematuria 07/08/2024 08/25/2024 Assessment & Plan (07/08/2024 6:08 PM EST): Advised to increased PO fluids rx bactrim x 5d, urine sent for culture She will call back prn worsening vaginal discharge, it seems to be phsyiological disch. Leg pain 04/10/2024 08/25/2024 Class 2 obesity 04/10/2024 05/15/2024 Dysuria 02/20/2024 08/25/2024 Assessment & Plan (02/20/2024 7:14 PM EDT): Urine dipstick: blood large , LE trace , nitrates neg Chem 10/2023 Wnl Seems possible urine can be contamination from vaginal canal ,possibly from regular periods ? -send today Ucx to lab -empiric start macrobid x 5 days + pyridium -hydration -alarm signs and symptoms Class 1 obesity due to exces s calories without serious comorbidity with body mass index (BMI) of 30.0 to 30.9 in adult 04/18/2023 Low back strain 01/18/2023 08/25/2024 Lower urinary tract symptoms 12/07/2022 05/15/2024 Binge eating disorder 10/17/20222023 Cervical intraepithelial neoplasia grade 1 09/25/2018 05/15/2024 Assessment & Plan (12/08/2022 11:43 AM EDT): Last papsmear 2019 wnl, next one due on January 2023, pt already has an appointment. Class 2 obesity with body ma ss index (BMI) of 39.0 to 39.9 in adult 09/25/2018 05/15/2024 Overview (10/22/2022): -Following with [facility], although appears difficulty getting approved through insurance Assessment & Plan (01/23/2023 9:37 AM EDT): Counseled regarding continue restricting calories coming from carbs and saturated fights counseled regarding increasing exercises she wants to be referred to Dr. Ngo, bariatric surgery for bariatric surgery we have discussed regarding use of other medication to help on weight reduction including Topamax, Wellbutrin, and ozempic. She will see Dr. Ngo and will return to evaluate pharmacotherapy FU with me in 3 months. Assessment & Plan (12/08/2022 11:39 AM EDT): Significant weight gain recently. She did several treatments with phentermine that failed. Recommended to fu closely with weight reduction program, she is going to [facility] program. Discussed re weight reduction options including exercise, life style modifications, diet, referral to commissioning specialist. Discussed re lower calorie intake, increase dietary fiber Will consider metformin or other parenteral medications for weight reduction if bariatric surgery not approved. Assessment & Plan (10/22/2022 8:36 PM EST): -Will fax over today's office visit with further list of conditions Encounters Date Type Department Care Team Description 09/25/[address] [phone] Genna Jones MD Appointment Request 08/25/2024 2:30 PM EST Office Visit [address] [phone] Genna Jones MD Encounter for preventive health examination (Primary Dx); Acute vaginitis; Screening mammogram for breast cancer; Need for vaccination 08/25/2024 Orders Only [address] [address] Genna Jones MD 08/25/2024 Travel 08/18/2024 Travel 08/14/2024 Patient Outreach [address] [address] Genna Jones MD Care Coordination (CH[facility] outreach for SDOH housing search-referral completed ) 08/14/2024 Patient Outreach [address] [address] Genna Jones MD Pre-visit Planning (SDOH screening is positive) 07/14/[address] [address] Genna Jones MD August07/11/[address] [address] Sarai Evans, RN Results 07/11/2024 Orders Only [address] [address] Genna Jones MD 07/08/2024 6:00 PM EST Office Visit [facility] [address] [place] [phone] Genna Jones MD Acute cystitis with hematuria (Primary Dx); Hypercholesteremia; UTI symptoms 07/08/2024 Travel from Last 3 Months Immunizations Name Administration Dates Next Due HPV 9-Valent 05/19/2024 Hep B, adult 08/25/2024 Influenza injectable quadriv alent IIV4 with preservative 06/06/2016 Influenza injectable quadriv alent preservative free 06/26/2022,05/30/2021,09/28/2020 Influenza, seasonal, injecta ble, preservative free 06/02/2024 Tdap 09/28/2020,04/16/2020 Family History Medical History Relation Name Comments Colon cancer Mother Relation Name Status Comments Mother Social History Tobacco Use Types Packs/Day Years Used Date Smoking Tobacco: Never Passive Smoke Exposure: Never Smokeless Tobacco: Never Tobacco Cessation:Counseling Given: Not Answered Alcohol Use Standard Drinks/Week Comments Never 0 (1 standard drink = 0.6 oz pur e alcohol) Depression Answer Date Recorded Patient Health Questionnaire-9 Score 6 12/08/2022 Housing Stability Answer Date Recorded What is your housing situation today? I do not have housing (Staying with others, in a hotel, in a mcc, living outside on the street, on a [...] Orientation Straight 06/26/2022 10 :30 AM EDT Last Filed Vital Signs Vital Sign Reading Time Taken Comments Blood Pressure 109/51 08/25/2024 2:28 PM EST Pulse 67 08/25/2024 2:28 PM EST Temperature 35.9 ??C (96.6 ??F) 08/25/2024 2:28 PM ES T Respiratory Rate 16 07/08/2024 5:43 PM EST Oxygen Saturation 100% 08/25/2024 2:28 PM EST Inhaled Oxygen Concentration - - Weight 73.7 kg (162 lb 6 oz) 08/25/2024 2:28 PM EST Height 167.6 cm (5' 6 ) 08/25/2024 2:28 PM EST Body Mass Index 26.21 08/25/2024 2:28 PM EST Plan of Treatment Health Maintenance Due Date Last Done Comments Alcohol/Substance Use Screening 1996 Family Planning (PISQ) 1999 Depression Screening 12/09/2023 12/08/2022, 12/09/19 23 COVID-19 Vaccine ( season) 2024 07/29/2021, 01/19/2021, 12/28/2020 Hepatitis B Vaccines (2 of 3 - 19+ 3-dose series) 09/22/2024 08/25/2024 HPV Vaccines (3 - 3-dose SCDM series) 11/16/2024 07/22/2024, 05/19/2024 Diabetes: Hemoglobin A1C 05/15/2025 024, 12/08/2022, 05/30/2021, Additional history exists SDOH Screening 08/14/2025 08/14/2024 Tobacco Screening 08/25/2025 08/25/2024 Mammogram 09/12/2026 09/12/2024 Pap Smear 05/08/2027 05/08/2024, 062 04/2023, 02/22/2023 Cervical Cancer Screening 05/08/2029 HPV/Cotest 05/08/2029 05/08/2024, 02/22/2023 Lipid Panel 06/02/2029 06/02/2024, 11/25, 07/29/2021, Additional history exists DTaP/Tdap/Td Vaccines (3 - Td or Tdap) 09/28/2030 09/28/2020, 04/16/2020 Zoster Vaccines (1 of 2) 2034 RSV Patients and Patients Aged 60 years or older (1 - 1-dose 75+ series) 2059 HIV Screening Completed 12/08/2022 Hepatitis C Screening Completed 06/02/2024, 023 Influenza Vaccine Completed 06/02/2024, , 05/30/2021, Additional history exists HIB Vaccines Aged Out No longer eligi ble based on patient's age to complete this topic Hepatitis A Vaccines Aged Out No long er eligible based on patient's age to complete this topic IPV Vaccines Aged Out No longer eligi ble based on patient's age to complete this topic Meningococcal Vaccine Aged Out No vonda elizabeth eligible based on patient's age to complete this topic Pneumococcal Vaccine: Pediatrics (0 to 5 Years) and At-Risk Patients (6 to 49) Years) Aged Out No longer eligible based on patient's age to complete this topic RSV under 20 months Aged Out No longe r eligible based on patient's age to complete this topic Rotavirus Vaccines Aged Out No longer eligible based on patient's age to complete this topic Procedures Procedure Name Priority Date/Time Associated Diagnosis Comments BI MAMMOGRAM SCREENING TOMOSYNTHESIS BILATERAL Routine 09/12/2024 2:40 PM EST Screening mammogram for breast cancer BACTERIAL VAGINOSIS PANEL Routine 08/25/2024 3:51 PM EST CHLAMYDIA/N. GONORRHOEAE RNA, TMA, UROGENITAL Routine 08/25/2024 3:51 PM EST Acute vaginitis CULTURE, URINE, ROUTINE Routine 07/08/2024 5:50 PM EST UTI symptoms POCT URINALYSIS DIPSTICK Routine 07/08/2024 5:48 PM EST UTI symptoms HEPATITIS PANEL, GENERAL Routine 06/02/2024 9:33 AM EDT Colon cancer high risk LIPID PANEL WITH REFLEX TO DIRECT LDL Routine 06/02/2024 9:33 AM EDT IFG (impaired fasting glucose) POCT GLYCATED HEMOGLOBIN, TOTAL Routine 05/15/2024 9:13 AM EDT IFG (impaired fasting glucose) THINPREP IMAGING PAP AND HPV MRNA E6/E7 WITH REFLEX TO HPV 16,18/45 Routine 05/08/2024 2:18 PM EDT HIV 1/2 ANTIGEN/ANTIBODY, FOURTH GENERATION W/RFL Routine 12/08/2022 9:54 AM EDT Cervical intraepithelial neoplasia grade 1 Encounter for preventive health examination from Last 3 Months or Most Recently Relevant to Health Maintenance Results * BI Mammogram Screening Tomosynthesis Bilateral (09/12/2024 2:40 PM EST) Anatomical Region Laterality Modality Breast Bilateral Mammography 09/12/2024 2:40 PM EST Narrative 09/21/2024 2:07 PM EST ? [facility] [place] ? [address] ?[place] [address] ? Mammography Report ? Signed ? Patient: Sethi,Madison ?MR#: [id number] ?? 8 ? : 1985 ?Acct:[id number] ? Age/Sex: 39 / F ?ADM Date: 01/17/25 ? Loc: HO.MAMMO ? Attending Dr: Genna Jones MD ? Ordering Physician: Genna Jones MD ?Results: 0In ?? complete: Needs Additional Imaging Evaluation ? Date of Service: 09/12/24 ?Follow Up: Additional Imagi ?? ng ? Procedure(s): MM tomosynthesis screening BI ?? Accession Number(s): [id number] ? cc: Genna Jones MD ? EXAMINATION: ?? MM SCREENING DIGITAL BREAST TOMOSYNTHESIS, BILATERAL ? CLINICAL INFORMATION: ? Screening. Asymptomatic. ? COMPARISON: ?? Mammography: Baseline. ? TECHNIQUE: ?? Digital breast mammography with tomosynthesis is performed in both the ?? craniocaudal and mediolateral oblique views along with computer-aided ?? detection (CAD). ? FINDINGS: ?? The breasts are heterogeneously dense, which may obscure small masses ?? (ACR BI-RADS breast composition Category c). ?? Left: ?? Grouped calcifications in the upper outer breast posterior depth. ?? No suspicious masses or other abnormal findings. ? Right: ?? There are no significant masses, abnormal calcifications, or other ?? abnormalities. ? MM/MM tomosynthesis screening BI ?? IMPRESSION: ?? Additional imaging is recommended ? ASSESSMENT: ? BI-RADS BI-RADS 0 - Incomplete: Needs additional Imaging. ? RECOMMENDATION: ?? 1. Additional views of the left breast with magnification views ?? 2. Targeted ultrasound if warranted after review of the additional ?? views. ?? 3. Radiology department staff will contact the patient for additional ?? imaging. ? Additional Imaging required ? This examination should not preclude the clinical evaluation of a ?? suspicious palpable abnormality. ? This patient's information was entered into a reminder system with a ?? target due date for their next mammogram. ? Electronically signed by: ??Ny Matos DO ??09/21/2024 02:04 PM EST ?? RP ? Dictated By: ?Ny Matos DO ? Signed By: ?<Electronically signed by Ny Matos, DO in OV> ? 09/21/24 1404 ? DD/ 1440 ? TD/TT: 09/12/24 1516 ? Assistant Professor Of Education: ? Procedure Note Donotdarrylter, Image - 09/21/2024 [facility] [address] [place] [address] Mammography Report Signed Patient: Michael Sethi#: [id number] 8 : 1985Acct:[id number] Age/Sex: 39 / FADM Date: 09/12/24 Loc: HO.MAMMO Attending Dr: Genna Jones MD Ordering Physician: Genna Jones MDResults: 0In complete: Needs Additional Imaging Evaluation Date of Service: 09/12/24Follow Up: Additional Imagi ng Procedure(s): MM tomosynthesis screening BI Accession Number(s): [id number] cc: Genna Jones MD EXAMINATION: MM SCREENING DIGITAL BREAST TOMOSYNTHESIS, BILATERAL CLINICAL INFORMATION: Screening. Asymptomatic. COMPARISON: Mammography: Baseline. TECHNIQUE: Digital breast mammography with tomosynthesis is performed in both the craniocaudal and mediolateral oblique views along with computer-aided detection (CAD). FINDINGS: The breasts are heterogeneously dense, which may obscure small masses (ACR BI-RADS breast composition Category c). Left: Grouped calcifications in the upper outer breast posterior depth. No suspicious masses or other abnormal findings. Right: There are no significant masses, abnormal calcifications, or other abnormalities. MM/MM tomosynthesis screening BI IMPRESSION: Additional imaging is recommended ASSESSMENT: BI-RADS BI-RADS 0 - Incomplete: Needs additional Imaging. RECOMMENDATION: 1. Additional views of the left breast with magnification views 2. Targeted ultrasound if warranted after review of the additional views. 3. Radiology department staff will contact the patient for additional imaging. Additional Imaging required This examination should not preclude the clinical evaluation of a suspicious palpable abnormality. This patient's information was entered into a reminder system with a target due date for their next mammogram. Electronically signed by: Ny Matos DO 09/21/2024 02:04 PM EST RP Dictated By: Ny Matos DO Signed By: <Electronically signed by Ny Matos DO in OV> 09/21/24 1404 DD/ 1440 TD/TT: 09/12/24 1516 Assistant Professor Of Education: Genna Jones MD IMG BI PROCEDURES Edited Result - Final * Bacterial Vaginosis (08/25/2024 3:51 PM EST) TRICHOMONAS VAGINALIS DETECTION BY PCR NOT DETECTED Not Detect [facility] BACTERIAL VAGINOSIS DETECTION BY PCR NEGATIVE Negative [facility] Comment:The BV organism targ ets of the Xpert Xpress MVP test can becommensal in women; Xpert Xpress MVP positive results forbacterial vaginosis should be considered in conjunction withother clinical and patient information to determine thedisease status. Organisms that are not detected by the XpertXpress MVP test have also been reported to be associatedwith BV and aerobic vaginitis.The Xpert Xpress MVP test performance has not been evaluatedin patients under the age of 14. JENNIFER GROUP DETECTION BY PCR NOT DETECTED Not Detect [facility] Jennifer glab krusei PCR NOT DETECTED Not Detect [facility] 08/25/2024 3:51 PM EST 08/26/2024 11:50 AM EST us Genna Jones MD LAB MICROBIOLOGY - GENER AL ORDERABLES Final Result [facility] [address] [place] [address] [phone] * Chlamydia/N. Gonorrhoeae RNA, TMA, Urogenitial (08/25/2024 3:51 PM EST) CT PCR NOT DETECTED Not Detect. [facility] Comment:A not detected test result does not exclude the possibilityof infection because test results can be affected byimproper specimen collection, concurrent antibiotic therapy,or the number of organisms in the specimen which may bebelow the sensitivity of the test. As with many diagnostictests, results from the Xpert CT/NG assay should beinterpreted in conjunction with other laboratory andclinical data available to the clinician.Xpert CT/NG performance has not been evaluated in patientsless than 14 years of age. The assay should not be used forthe evaluationof suspected sexual abuse or for other medico-legalindications. Additional testing is recommended in anycircumstance when false positive or false negative resultscould lead to adverse medical, social or psychologicalconsequences. NG PCR NOT DETECTED Not Detect. [facility] Comment:A not detected test result does not exclude the possibilityof infection because test results can be affected byimproper specimen collection, concurrent antibiotic therapy,or the number of organisms in the specimen which may bebelow the sensitivity of the test. As with many diagnostictests, results from the Xpert CT/NG assay should beinterpreted in conjunction with other laboratory andclinical data available to the clinician.Xpert CT/NG performance has not been evaluated in patientsless than 14 years of age. The assay should not be used forthe evaluationof suspected sexual abuse or for other medico-legalindications. Additional testing is recommended in anycircumstance when false positive or false negative resultscould lead to adverse medical, social or psychologicalconsequences. Swab Vaginal structure / Unknown 08/25/2024 3:51 PM EST 08/26/2024 12:11 PM EST Narrative [facility] - 08/26/2024 1:52 PM EST Vaginal us Genna Jones MD LAB MICROBIOLOGY - GENER AL ORDERABLES Final Result [facility] [address] [place] [phone] * Culture, Urine, Routine (07/08/2024 5:50 PM EST) Urine Urine specimen obtained by clean catch procedure / Unknown 07/08/2024 5:50 PM EST 07/09/2024 10:58 AM EST Comment:UACC Narrative [facility] - 07/11/2024 7:29 AM EST Escherichia coli Quant > 100,000 cfu/mL Escherichia coli: Ampicillin >=32(R) Escherichia coli: Cefazolin 4(S) Escherichia coli: Cefepime <=0.12(S) Escherichia coli: Ceftriaxone <=0.25(S) Escherichia coli: Ciprofloxacin <=0.06(S) Escherichia coli: Gentamicin >=16(R) Escherichia coli: Nitrofurantoin <=16(S) Escherichia coli: Trimethoprim/Sulfamethoxazole >=320(R) Specimen Source: Urine clean catch Genna Jones MD LAB MICROBIOLOGY - GENER AL ORDERABLES Final Result [facility] [address] [place] [phone] * (ABNORMAL) POCT urinalysis dipstick manually resulted (07/08/2024 5:48 PM EST) Color, UA Violette Clarity, UA Cloudy Glucose, UA Negative Bilirubin, UA Negative Ketones, UA Negative Spec Grav, UA 1.030 Blood, UA Positive(A) Negative, None Detected Comment:Trace pH, UA 6.0 Protein, UA Trace Urobilinogen, UA 1.0 Leukocytes, UA Negative Negative, Rare, Trace Nitrite, UA Positive(A) Negative, None Detected Urine 07/08/2024 5:48 PM EST Genna Jones MD POINT OF CARE TEST ENTER /EDIT ORDERABLES Final Result * (ABNORMAL) Lipid Panel with Reflex to Direct LDL (06/02/2024 9:33 AM EDT) Triglycerides 68 <150 mg/dL [facility] Comment:Desirable Triglyceri de: less than 150 mg/dLBorderline High Triglyceride 150-199 mg/dLHigh Triglyceride: 200-499 mg/dLVery High Triglyceride: greater than or equal to 5OO mg/dL Cholesterol 209(H) <200 mg/dL [facility] Comment:Desirable Cholestero l: less than 200 mg/dLBorderline High Cholesterol: 200-239 mg/dLHigh Cholesterol: greater than 239 mg/dL LDL Cholesterol Calculated 141(H) <100 mg/dL [facility] Comment:Desirable LDL: less than 100 mg/dLNear Optimal/Above Optimal LDL: 110- 129 mg/dLBorderline High LDL: 130-159 mg/dLHigh LDL: 160-189 mg/dLVery High LDL: greater than or equal to 190 mg/dL HDL Cholesterol 55 >40 mg/dL [facility] Comment:Desirable HDL: great er than 40 mg/dL Note: This HDL assay may give artificially low results in patients with liver disease. Blood 06/02/2024 9:33 AM EDT 06/02/2024 11:15 AM EDT us Genna Jones MD LAB BLOOD ORDERABLES Fin al Result Performing Organization Address [facility] [employer] de Phone Number [facility] [address] [place] [phone] * Hepatitis Panel, General (06/02/2024 9:33 AM EDT) Hepatitis A IgM Nonreactive Nonreactive [facility] Comment:IgM antibodies to BRAY V not detected; does not exclude earlyacute or recovered HAV infection. ~Hepatitis B Surface Antibody NONREACTIVE Nonreactive [facility] Comment:Nonreactive: < 8.00 mIU/mL Hepatitis B Core Antibody Nonreactive Nonreactive [facility] Hepatitis C Antibody Nonreactive Nonreactive [facility] Comment:Antibodies to HCV no t detected; does not exclude early acuteHCV infection. Hepatitis B Surface Ag Negative Negative [facility] Blood 06/02/2024 9:33 AM EDT 06/02/2024 11:15 AM EDT Genna Jones MD LAB BLOOD ORDERABLES Fin al Result Performing Organization Address [facility] [employer] de Phone Number [facility] [address] [place] [phone] * POCT HGB A1C (05/15/2024 9:13 AM EDT) Hemoglobin A1C 5.6 4.0 - 6.0 % QC Media Lot # [id number] Lot# Expiration Date [id number] Blood 05/15/2024 9:13 AM EDT Genna Jones MD POINT OF CARE TEST ENTER /EDIT ORDERABLES Final Result * ThinPrep Imaging Pap and HPV mRNA E6/E7 with Reflex to HPV 16,18/45 (05/08/2024 2:18 PM EDT) HPV 16 RNA [facility] HPV 18/45 RNA [facility] HPV nRNA E6/E7 Not Detected Not Detected [facility] Comment:Methodology: Transcr iption-Mediated AmplificationThis assay detects E6/E7 viral messenger RNA (mRNA) from 14high-risk HPV types (16,18,31,33,35,39,45,51,52,56,58,59,66,68).Cervical sources are required for HPV testing.If a vaginal source from a patient who has had atotal hysterectomy with removal of cervix wassubmitted, please contact the testing laboratoryfor alternative testing options.For additional information, please refer tohttp://education.3sun/faq/OYD789r3(This link if provided for information/educational purposes only.)THIS TEST WAS PERFORMED AT:[facility] [place] [phone] BANKS MD SOURCE: SEE NOTE [facility] Comment:None given Report Status: [facility] Clinical Information: SEE NOTE [facility] Comment:None given LMP: SEE NOTE [facility] Comment:NONE GIVEN Prev. PAP: SEE NOTE [facility] Comment:NONE GIVEN Prev. BX: SEE NOTE [facility] Comment:NONE GIVEN Statement Of Adequacy: SEE NOTE [facility] Comment:Satisfactory for nicol luation.Endocervical/transformation zone componentpresent. General Categorization: [facility] Interpretation/Result: SEE NOTE [facility] Comment:Cytology Results: Ne gative for intraepitheliallesion or malignancy. Cytology Comment SEE NOTE [facility] Comment:This Pap test has be en evaluated with computerassisted technology. [employer]oples[employer] Hr Developer: SEE NOTE [facility] Comment:KF, CT(ASCP)CT scree rashad location: [address] [address] Review [employer] H[employer] Developer: SEE NOTE [facility] Comment:MPG, CT(ASCP)CT scre ening location: [address] [address] Pathologist [facility] PAP Infection [facility] See Note SEE NOTE [facility] Comment:EXPLANATORY NOTE:The Pap is a screening test for cervical cancer. It isnot a diagnostic test and is subject to false negativeand false positive results. It is most reliable when asatisfactory sample, regularly obtained, is submittedwith relevant clinical findings and history, and whenthe Pap result is evaluated along with historic andcurrent clinical information. 05/08/2024 2:18 PM EDT 05/08/2024 3:57 PM EDT Narrative [facility] - 05/13/2024 3:15 PM EDT SEE SCANNED RESULTS IN EMR us Generic External Data Provider LAB PATHOLOGY ORD ERABLES Final Result [facility] [address] [place] [phone] [phone] * HIV-1/2 Antigen and Antibodies, Fourth Generation, with Reflexes (12/08/2022 9:54 AM EDT) HIV Antigen/Antibody, 4th Generation NON-REAC TIVE NON-REAC TIVE [facility] Comment: HIV-1 antigen and HIV-1/HIV-2 antibodies were not detected. There is no laboratory evidence of HIV infection. PLEASE NOTE: This information has been disclosed to you from records whose confidentiality may be protected by state law. ??If your state requires such protection, then the state law prohibits you from making any further disclosure of the information without the specific written consent of the person to whom it pertains, or as otherwise permitted by law. A general authorization for the release of medical or other information is NOT sufficient for this purpose. ?? For additional information please refer to http://education.Novapost.WHILL/faq/XUY169 (This link is being provided for informational/ educational purposes only.) The performance of this assay has not been clinically validated in patients less than 2 years old. Blood Venous blood specimen / Unknown 12/08/2022 9:54 AM EDT 12/08/2022 9:55 AM EDT Narrative [facility] - 12/13/2022 11:15 PM EDT FASTING:YES FASTING: YES Genna Jones MD LAB BLOOD ORDERABLES Fin al Result [facility] [address], [place] [address] [employer] [facility] [address] [place] [phone] from Last 3 Months or Most Recently Relevant to Health Maintenance Insurance [facility] C3 Care Teams Solar Systems Designer Relationship Specialty Start Date End Date Genna Jones MD [address] [place] [phone] PCP - General Family Medicine 09/25/18
--- OUTSIDE RECORDS SUMMARY | 2024-09-30 12:49 | XMS_ITS | Encounter Summary ---
Author Organization [employer] Address [address] [place] [address] Care Team Providers Care Home Health Physical Therapist Name Role Phone Genna Jones MD Primary Care Provider + Encounter Details Date Type Department Care Team (Late st Contact Info) Description 07/11/2024 Orders Only [facility] [address] [place], [place] [phone] Genna Jones MD [address] [place], [place] [phone] Social History Tobacco Use Types Packs/Day Years Used Date Smoking Tobacco: Never Passive Smoke Exposure: Never Smokeless Tobacco: Never Alcohol Use Standard Drinks/Week Comments Never 0 (1 standard drink = 0.6 oz pur e alcohol) Depression Answer Date Recorded Patient Health Questionnaire-9 Score 6 12/08/2022 Housing Stability Answer Date Recorded What is your housing situation today? I have sania schroeder 06/13/[address] you li ve. Do you have problems with any of the following? None of the above 06/13/2023 Food Insecurity Answer Date Recorded Within the past 12 months, y ou worried that your food would run out before you got money to buy more: Never True 06/13/2023 Within the past 12 months,th e food you bought just didn't last and you didn't have enough money to get more: Never True Transportation Answer Date Recorded In the past 12 months, has l ack of transportation kept you from medical appts, meetings, work or from getting things needed for daily living? No 06/13/2023 Utilities Answer Date Recorded In the past 12 months, has t he electric, gas, oil or water company threatened to shut off services in your home? Yes 06/03/2023 Depression Answer Date Recorded Patient Health Questionnaire-2 Score 2 12/08/2022 Comments No Sex and Gender Information Value Date Recorded Sex Assigned at Female 06/26/2022 10:30 AM EDT Legal Sex Female 10:30 AM EDT Gender Identity Female 06/26/2022 10:30 AM EDT Sexual Orientation Straight 06/26/2022 10 :30 AM EDT documented as of this encounter Plan of Treatment Not on file documented as of this encounter Visit Diagnoses Not on filedocumented in this encounter Additional Health Concerns Assessment Noted Time PHQ-9 Depression Total Score: 6 12/09/19 23 9:21 AM EDT documented as of this encounter Care Teams Home Health Physical Therapist Relationship Specialty Start Date End Date Genna Jones MD [address] [place] [phone] PCP - General Family Medicine 09/25/18 documented as of this encounter
--- OUTSIDE RECORDS SUMMARY | 2024-09-30 12:49 | XMS_ITS | Encounter Summary ---
Author Organization [employer] Address [address] [place] [address] Care Team Providers Care Security Monitor Name Role Phone Genna Jones MD Primary Care Provider + Reason for Visit * Reason Onset Date Comments Forms/questionnaires 10/20/2022 Encounter Details Date Type Department Care Team ([facility] st Contact Info) Description 10/20/2022 Telephone [facility] [address] [place], [place] [phone] Genna Jones MD [address] [place], [place] [phone] Forms/questionnaires Social History Tobacco Use Types Packs/Day Years Used Date Smoking Tobacco: Never Smokeless Tobacco: Never Alcohol Use Standard Drinks/Week Comments Never 0 (1 standard drink = 0.6 oz pur e alcohol) Depression Answer Date Recorded Patient Health Questionnaire-9 Score 6 12/08/2022 Housing Stability Answer Date Recorded What is your housing situation today? I do not have housing (Staying with others, in a hotel, in a intermediate, living outside on the street, on a [...] Access Q2 Not on file 08/14/2024 Comments Unknown Sex and Gender Information Value Date Recorded Sex Assigned at Female 06/26/2022 10:30 AM EDT Legal Sex Female 10:30 AM EDT Gender Identity Female 06/26/2022 10:30 AM EDT Sexual Orientation Straight 06/26/2022 10 :30 AM EDT COVID-19 Exposure Response Date Recorded In the last 10 days, have yo u been in contact with someone who was confirmed or suspected to have Coronavirus/COVID-19? No / Unsure 01/23/2023 8:39 AM EDT documented as of this encounter Miscellaneous Notes * Telephone Encounter - PEGGY Hayden - 10/22/2022 8:48 PM EST Please call pt and let her know that note has been faxed over the [facility] once you have sent it. Thank you. * Telephone Encounter - Katia Cheek RN - 10/20/2022 12:40 PM EST Please review and advise if note has been faxed to [facility] as indicated at last visit. * Telephone Encounter - Debbie Davalos - 10/20/2022 12:28 PM EST Tc from pt requesting a call back from a nurse , states was seen on 10/17/[address] Turner, pt would like to know if office notes have been faxed to [facility]. Please contact at [phone] Luxembourger documented in this encounter Plan of Treatment Not on file documented as of this encounter Visit Diagnoses Not on filedocumented in this encounter Care Teams Security Monitor Relationship Specialty Start Date End Date Genna Jones MD [address] [place] [phone] PCP - General Family Medicine 09/25/18 documented as of this encounter
--- OUTSIDE RECORDS SUMMARY | 2024-09-30 12:49 | XMS_ITS | Encounter Summary ---
Author Organization [employer] Address [address] [place] [address] Care Team Providers Care Sheltered Workshop Executive Director Name Role Phone Genna Jones MD Primary Care Provider + Reason for Visit * Reason Onset Date Comments Appointment Request 08/13/2023 Encounter Details Date Type Department Care Team ([facility] st Contact Info) Description 08/13/2023 Telephone [facility] [address] [place], [place] [phone] Genna Jones MD [address] [place], [place] [phone] Appointment Request Social History Tobacco Use Types [...] Patient Health Questionnaire-2 Score 2 12/08/2022 Comments Unknown Sex and Gender Information Value Date Recorded Sex Assigned at Female 06/26/2022 10:30 AM EDT Legal Sex Female 10:30 AM EDT Gender Identity Female 06/26/2022 10:30 AM EDT Sexual Orientation Straight 06/26/2022 10 :30 AM EDT documented as of this encounter Miscellaneous Notes * Telephone Encounter - Renu Morales - 08/13/2023 9:37 AM EST Tc from pt requesting a f/u appt with PCP. Reason; Bariatric Surgery Follow Up documented in this encounter Plan of Treatment Not on file documented as of this encounter Visit Diagnoses Not on filedocumented in this encounter Additional Health Concerns Assessment Noted Time PHQ-9 Depression Total Score: 6 12/09/19 23 9:21 AM EDT documented as of this encounter Care Teams Sheltered Workshop Executive Director Relationship Specialty Start Date End Date Genna Jones MD [address] [place] [phone] PCP - General Family Medicine 09/25/18 documented as of this encounter
--- OUTSIDE RECORDS SUMMARY | 2024-09-30 12:49 | XMS_ITS | Encounter Summary ---
Author Organization [employer] Address [address] [place] [address] Care Team Providers Care Security Administrator Name Role Phone Genna Jones MD Primary Care Provider + Reason for Visit * Reason Onset Date Comments Nurse Triage 07/09/2023 Encounter Details Date Type Department Care Team ([facility] st Contact Info) Description 07/09/2023 Telephone [facility] [address] [place], [place] [phone] Genna Jones MD [address] [place], [place] [phone] Nurse Triage Social History Tobacco Use Types Packs/Day Years Used Date Smoking Tobacco: Never Passive Smoke Exposure: Never Smokeless Tobacco: Never Alcohol Use Standard Drinks/Week Comments Never 0 (1 standard drink = 0.6 oz pur e alcohol) Depression Answer Date Recorded Patient Health Questionnaire-9 Score 6 12/08/2022 Housing Stability Answer Date Recorded What is your housing situation today? I have saniawing schroeder 06/13/[address] you [...] encounter Miscellaneous Notes * Telephone Encounter - Nesha Dangelo RN - 07/09/2023 3:16 PM EST Triage call with [employer] [place] [id number] Pt reports chronic constipation. Last BM was today and stool was very hard and it was difficult to pass. Pt admits to eating a lot of fast food and not drinking enough liquid. Pt is advised can use 30cc MOM as needed in the evening. Metamucil is also good to use per package instruction. Pt is agreeable to trying these interventions. Pt is advised to increase liquids to 6-8 glasses of liquid daily, water, juice, vit water, gatorade, decaf tea. Pt is advised to add fresh fruits, vegetables and other high fiber foods to diet and Pt agrees. Pt agrees with home care disposition and will begin to try to do these suggestions. If Pt has further difficulty Pt will call back. Protocol Used: Constipation (Adult) Protocol-Based Disposition: Home Care Positive Triage Questions: * Mild constipation * Rectal pain * All higher-acuity triage questions were negative Care Advice Discussed: * Reassurance and Education - Constipation * General Constipation Instructions * High Fiber Diet * Drink Adequate Liquids * Get Into a Rhythm * Enemas * Narcotic Pain Medicine * Reasons To Call Back - Constipation lasts more than 1 week after using Care Advice - Abdomen swelling, vomiting or fever occur - Constant or increasing abdomen pain - You think you need to be seen - You become worse * [id number] * Step 1 - Fiber Laxatives, Every Day * Step 2 - Use an Osmotic Laxative if Needed * Reasons To Call Back - Constipation lasts more than 1 week after using Care Advice - Abdomen swelling, vomiting or fever occur - Constant or increasing abdomen pain - You think you need to be seen - You become worse * Reassurance and Education - Rectal Pain * Warm Saline SITZ Bath - For Rectal Pain Due to Constipation * Warm Saline Sitz Bath - How to Make a SITZ Bath * Hydrocortisone Ointment Twice a Day for Hemorrhoid Pain * Rectal Pain and Can't Pass Stool (Blocked Up Feeling) * Call Your Doctor If * General Constipation Instructions * Warm Saline SITZ Bath - For Rectal Pain Due to Constipation * Warm Saline Sitz Bath - How to Make a SITZ Bath * Expected Course * Reasons To Call Back - Rectal pain is not relieved - Constant or increasing abdomen pain - Abdomen swelling or vomiting occur - You become worse * Telephone Encounter - Lucianostephanie Aquilino Jones - 07/09/2023 2:44 PM EST Symptom: Pain - Severe Outcome: Schedule an urgent appointment (within 1 hour) or talk to a nurse or provider soon Reason: Caller denied all higher acuity questions The caller accepted this outcome Please contact pt at [phone] Kazakh Speaker documented in this encounter Plan of Treatment Not on file documented as of this encounter Visit Diagnoses Not on filedocumented in this encounter Additional Health Concerns Assessment Noted Time PHQ-9 Depression Total Score: 6 12/09/19 23 9:21 AM EDT documented as of this encounter Care Teams Security Administrator Relationship Specialty Start Date End Date Genna Jones MD [address] [place] [phone] PCP - General Family Medicine 09/25/18 documented as of this encounter
--- OUTSIDE RECORDS SUMMARY | 2024-09-30 12:49 | XMS_ITS | Clinical Summary ---
Author Organization [address] [place] [address] Address [address] [place] [address] Phone Care Team Providers Care Grant Coordinator Name Role Phone Genna Jones MD Primary Care Provider Allergies No known active allergies Medications Medication Sig Dispensed Refills Start Date End Date Status wheat dextrin 3 gram/3.8 gram powder Take 4 g by mouth daily. 08/02/2023 Active cholecalciferol (VITAMIN D-3) 1,250 mcg (50,000 unit) capsule TAKE 1 CAPSULE BY MOUTH 1 TIME A WEEK 07/18/2023 Active multivitamin tablet Take 1 tablet by mouth 1 (one) time each day. 08/25/2024 Active zinc gluconate 50 mg tabletIndications:Pos toperative malabsorption Take 1 tablet (50 mg total) by mouth 1 (one) time each day. 30 tablet 09/16/2024 09/16/2025 Active Active Problems Problem Noted Date Diagnosed Date Class 1 obesity due to exces s calories without serious comorbidity with body mass index (BMI) of 30.0 to 30.9 in adult 07/21/2024 Encounters Date Type Department Care Team Description 09/11/2024 3:15 PM EST Office Visit Bariatric Surgery - [place] [address] [facility] [address] [place] [address] José Luis Elliott MD Intestinal malabsorption following gastrectomy (Primary Dx); Over weight from Last 3 Months Immunizations Name Administration Dates Next Due Pfizer SARS-CoV-2 COVID-19, mRNA, LNP-S, preservative free 01/19/2021,12/28/2020 Social History Tobacco Use Types Packs/Day Years Used Date Smoking Tobacco: Never Assessed Smokeless Tobacco: Never Sex and Gender Information Value Date Recorded Sex Assigned at Not on file Gender Identity Not on file Sexual Orientation Not on file Job Start Date Occupation Industry Not on file Not on file Not on file Obstetrics History Last Filed Vital Signs Vital Sign Reading Time Taken Comments Blood Pressure 104/65 09/11/2024 3:21 PM EST Pulse 80 09/11/2024 3:21 PM EST Temperature 36.2 ??C (97.2 ??F) 09/11/2024 3:21 PM ES T Respiratory Rate - - Oxygen Saturation - - Inhaled Oxygen Concentration - - Weight 75.8 kg (167 lb) 09/11/2024 3:21 PM EST Height 170.2 cm (5' 7 ) 09/11/2024 3:21 PM EST Body Mass Index 26.16 09/11/2024 3:21 PM EST Plan of Treatment Upcoming Encounters Date Type Department Care Team ([facility] st Contact Info) Description 03/12/2025 3:00 PM EDT Office Visit Bariatric Surgery - [place] [address] [facility] [address] [place] [phone] José Luis Elliott MD [address] [facility] [address] [place] [address] Health Maintenance Due Date Last Done Comments Breast Cancer Screening 1985 Social Influencers of Health Screening 09/25/2023 Depression Screening 12/09/2023 12/08/2022 COVID-19 Vaccine ( season) 2024 07/29/2021, 01/19/2021, 12/28/2020 Hepatitis B Vaccines (2 of 3 - 19+ 3-dose series) 09/22/2024 08/25/2024 HPV Vaccines (3 - 3-dose SCDM series) 11/16/2024 07/22/2024, 05/19/2024 Cervical Cancer Screening: Pap Smear 02/22/2026 02/22/2023 Cholesterol Screening (Lipid Panel) 04/18/2028 04/18/2023 DTaP,Tdap,and Td Vaccines (3 - Td or Tdap) 09/28/2030 09/28/2020, 04/16/2020 HIV Screening Completed 12/08/2022, 12/08/2022 Hepatitis C Screening Completed 12/08/2022 Influenza Vaccine Completed 06/02/2024, , 05/30/2021, Additional history exists HIB Vaccines Aged Out No longer eligi ble based on patient's age to complete this topic Hepatitis A Vaccines Aged Out No long er eligible based on patient's age to complete this topic IPV Vaccines Aged Out No longer eligi ble based on patient's age to complete this topic MMR Vaccines Aged Out No longer eligi ble based on patient's age to complete this topic Meningococcal ACWY Vaccine Aged Out N o longer eligible based on patient's age to complete this topic Pneumococcal Vaccine: Pediatrics (0 to 5 Years) and At-Risk Patients (6 to 64 Years) Aged Out No longer eligible based on patient's age to complete this topic RSV Immunization Patients Under 20 months Aged Out No longer eligible based on patient's age to complete this topic Varicella Vaccines Aged Out No longer eligible based on patient's age to complete this topic Procedures Procedure Name Priority Date/Time Associated Diagnosis Comments ZINC Routine 09/11/2024 3:37 PM EST Intestinal malabsorption following gastrectomy VITAMIN D 25 HYDROXY Routine 09/11/2024 3:37 PM EST Intestinal malabsorption following gastrectomy FOLATE Routine 09/11/2024 3:37 PM EST Intestinal malabsorption following gastrectomy LIPID PANEL Routine 04/18/2023 HM PAP SMEAR Routine 02/22/2023 HM HEPATITIS C SCREENING Routine 12/08/2022 HM HIV SCREENING Routine 12/08/2022 from Last 3 Months or Most Recently Relevant to Health Maintenance Results * (ABNORMAL) Zinc (09/11/2024 3:37 PM EST) Zinc 58(L) 60 - 130 ug/dL 09/15/2024 1:42 PM EST [facility] Comment: Elevated results may be due to sample collected in a non-certified trace element-free tube. This test was developed and the performance characteristics determined by [facility]. It has not been cleared or approved by the FDA. The laboratory is regulated under CLIA as qualified to perform high-complexity testing. This test is used for patient testing purposes. It should not be regarded as investigational or for research. Test performed at [facility], [address] , [place], [place] ??[address] ? [phone] Pauline Whitman MD, PhD - Corrosion Control Technician Blood Venous blood specimen / Unknown Venipuncture / Unknown 09/11/2024 3:37 PM EST 09/11/2024 3:37 PM EST José Luis Elliott MD LAB BLOOD ORDERABLES [facility] [address] [place] [address] * (ABNORMAL) Vitamin D 25 hydroxy (09/11/2024 3:37 PM EST) Vit D, 25-Hydroxy 21.7(L) 30.0 - 80.0 ng/mL LAB CHEMISTRY METHOD 09/11/2024 9:45 PM EST [facility] Blood Venous blood specimen / Unknown Venipuncture / Unknown 09/11/2024 3:37 PM EST 09/11/2024 3:37 PM EST José Luis Elliott MD LAB BLOOD ORDERABLES [facility]) [facility] [address] [place] [address], * Folate (09/11/2024 3:37 PM EST) Folate 11.0 2.8 - 17.0 ng/ml LAB CHEMISTRY METHOD 09/11/2024 10:02 PM EST [facility] Blood Venous blood specimen / Unknown Venipuncture / Unknown 09/11/2024 3:37 PM EST 09/11/2024 3:37 PM EST José Luis Elliott MD LAB BLOOD ORDERABLES [facility] [address] [place] [address], * (ABNORMAL) Lipid panel (04/18/2023) [facility] [address] LDL/HDL Ratio 4 0 - 4 Triglycerides 77 0 - 150 mg/dL Cholesterol 208(A) 0 - 200 mg/dL HDL 52 40 mg/dL LDL Cholesterol 141(A) 0 - 100 mg/dL Blood Venous blood specimen / Unknown Historical Provider LAB BLOOD ORDERAB LES * Pap Smear (02/22/2023) [facility] Pap smear no interpretation , abstracted Historical Provider [facility] * HIV Screening (12/08/2022) [facility] [address] HIV Screening abstracted Historical Provider [facility] * Hepatitis C Screening (12/08/2022) [facility] Hepatitis C Screening Abstracted Historical Provider [facility] from Last 3 Months or Most Recently Relevant to Health Maintenance Care Teams Grant Coordinator Relationship Specialty Start Date End Date Genna Jones MD [address] [place] [phone] PCP - General 01/29/23
--- OUTSIDE RECORDS SUMMARY | 2024-09-30 12:49 | XMS_ITS | Encounter Summary ---
Author Organization [employer] Address [address] [facility] 7t [place] [address] Care Team Providers Care Surgical Services Director Name Role Phone Genna Jones MD Primary Care Provider + Reason for Visit * Reason Onset Date Comments Request For Order(s) 10/27/2022 Encounter Details Date Type Department Care Team ([facility] st Contact Info) Description 10/27/2022 Telephone [facility] [address] [place], [place] [phone] Genna Jones MD [address] [place], [place] [phone] Request For Order(s) Social History Tobacco Use Types Packs/Day Years [...] with others, in a hotel, in a fpc, living outside on the street, on a [...] encounter Miscellaneous Notes * Telephone Encounter - Debbie Davalos - 10/27/2022 2:38 PM EST Tc from pt requesting a order for sleep study , states discuss on 10/17/22. Pt is requesting a call back. Please contact at [phone] Tristanian documented in this encounter Plan of Treatment Not on file documented as of this encounter Visit Diagnoses Not on filedocumented in this encounter Care Teams Surgical Services Director Relationship Specialty Start Date End Date Genna Jones MD [address] [place] [phone] PCP - General Family Medicine 09/25/18 documented as of this encounter
--- OUTSIDE RECORDS SUMMARY | 2024-09-30 12:49 | XMS_ITS | Encounter Summary ---
Author Organization [employer] Address [address] [place] [address] Care Team Providers Care Cereal Maker Name Role Phone Genna Jones MD Primary Care Provider + [phone] Reason for Visit * Reason Comments Follow-up Missed last 2 parmjit Encounter Details Date Type Department Care Team (Latest Contact Info) Description 09/11/2024 3:15 PM EST Office Visit Bariatric Surgery - [place] [address] [phone] José Luis Elliott MD [address] [address] Intestinal malabsorption following gastrectomy (Primary Dx); Over weight Social History Tobacco Use Types Packs/Day Years Used Date Smoking Tobacco: Never Assessed Smokeless Tobacco: Never Sex and Gender Information Value Date Recorded Sex Assigned at Not on file Gender Identity Not on file Sexual Orientation Not on file Job Start Date Occupation Industry Not on file Not on file Not on file documented as of this encounter Last Filed Vital Signs Vital Sign Reading [...] Mass Index 26.16 09/11/2024 3:21 PM EST documented in this encounter Progress Notes * José Luis Elliott MD - 09/11/2024 3:15 PM EST Ms. Sethi is a 39 y.o. year old female who presents for surgical follow up regarding obesity. HPI: Ms. Jossie Sethi presents for surgical follow up s/p sleeve gastrectomy with Lexi'maren at [facility] on 08/08/2023 Has lost 23 lbs since October of last year. BMI is 26. DM resolved. Normal Hb recently. Has lost 90 lbs. ROS: GENERAL: No malaise, significant unintentional weight loss, fever, chills or night sweats. HEENT: No changes in hearing or vision, no nose bleeds or other nasal problems. NECK: No lumps, goiter, pain or significant neck swelling RESPIRATORY: No cough, wheezing or shortness of breath CARDIOVASCULAR: No chest pain, leg swelling or palpitations. GI: No abdominal discomfort, nausea, vomiting, or change in bowel habits. : No dysuria, frequency or incontinence. SKIN: No lesions, rash or itching. HEMATOLOGY: No prolonged bleeding, easy bruisability. LYMPHOLOGY No swollen nodes. MUSCULOSKELETAL: No abnormalities. NEURO: No abnormalities. All other systems reviewed which are negative. PAST MEDICAL HISTORY: Patient Active Problem List Diagnosis Date Noted Date Diagnosed Class 1 obesity due to excess calories without serious comorbidity with body mass index (BMI) of 30.0 to 30.9 in adult 07/21/2024 PAST SURGICAL HISTORY: No past surgical history on file. SOCIAL HISTORY: Social History Tobacco Use Smoking status: Not on file Smokeless tobacco: Never Substance Use Topics Alcohol use: Not on file FAMILY HISTORY: No family history on file. No family status information on file. MEDICATIONS: There are no discontinued medications. ACTIVE MEDICATIONS: Outpatient Medications Marked as Taking for the 09/11/24 encounter (Office Visit) with José Luis Elliott MD Medication Sig Dispense Refill multivitamin tablet Take 1 tablet by mouth 1 (one) time each day. ALLERGIES: No Known Allergies PHYSICAL EXAM: Visit Vitals BP 104/65 Pulse 80 Temp 36.2 ??C (97.2 ??F) (Oral) Ht 1.702 m (67 ) Wt 75.8 kg (167 lb) BMI 26.16 kg/m?? Smoking Status Never Assessed BSA 1.87 m?? APPEARANCE: Alert and oriented and in no acute distress EYES: Conjunctiva normal and sclera normal and anicteric. NECK: Neck supple with no adenopathy. HEART: RRR with normal S 1 and S 2, no murmurs, no gallops. LUNG: Clear to auscultation LYMPH NODES: No gross cervical or clavicular lymphadenopathy. ABDOMEN: Bowel sounds normoactive, soft, non-tender, non-distended, EXTREMITIES: Extremities warm and well perfused without clubbing, cyanosis, or edema. SKIN: Skin color and texture normal. No rashes or lesions. NEUROLOGIC: Alert and oriented ??3. No motor or sensory deficits in the extremities. LABS/IMAGING: ASSESSMENT: 1. Intestinal malabsorption following gastrectomy 2. Over weight PLAN: 1. The patient has done very well after bariatric surgery. I will check labs to rule out any deficiencies that may have caused by the operation. The patient will continue taking vitamin supplements and protein supplements. The patient will continue exercising and following a healthy lifestyle. 2. F/U in 6 months documented in this encounter Plan of Treatment Upcoming Encounters Date Type Department Care Team (Late st Contact Info) Description 03/12/2025 3:00 PM EDT Office Visit Bariatric Surgery - [place] 175 [facility] [address] [place] [phone] José Luis Elliott MD [address] [facility] [address] [place] [address] documented as of this encounter Results * (ABNORMAL) Zinc (09/11/2024 3:37 PM EST) Zinc 58(L) 60 - 130 ug/dL 09/15/2024 1:42 PM EST [facility] Comment: Elevated results may be due to sample collected in a non-certified trace element-free tube. This test was developed and the performance characteristics determined by [facility]. It has not been cleared or approved by the FDA. The laboratory is regulated under CLIA as qualified to perform high-complexity testing. This test is used for patient testing purposes. It should not be regarded as investigational or for research. Test performed at [facility], [address], [place], [place] ??[address] ? [phone] Pauline Whitman MD, PhD - Supervisor [employer] Blood Venous blood specimen / Unknown Venipuncture / Unknown 09/11/2024 3:37 PM EST 09/11/2024 3:37 PM EST José Luis Elliott MD LAB BLOOD ORDERABLES [facility] [address] [place] [address] * (ABNORMAL) Vitamin D 25 hydroxy (09/11/2024 3:37 PM EST) Pathologist [facility] Vit D, 25-Hydroxy 21.7(L) 30.0 - 80.0 ng/mL LAB CHEMISTRY METHOD 09/11/2024 9:45 PM EST [facility] Blood Venous blood specimen / Unknown Venipuncture / Unknown 09/11/2024 3:37 PM EST 09/11/2024 3:37 PM EST José Luis Elliott MD LAB BLOOD ORDERABLES Performing Organization Address City/[facility]/ZIP Co de Phone Number [facility] [address] [place] [address], * Folate (09/11/2024 3:37 PM EST) [facility] Folate 11.0 2.8 - 17.0 ng/ml LAB CHEMISTRY METHOD 09/11/2024 10:02 PM EST [facility] Blood Venous blood specimen / Unknown Venipuncture / Unknown 09/11/2024 3:37 PM EST 09/11/2024 3:37 PM EST José Luis Elliott MD LAB BLOOD ORDERABLES [facility] [address] [place] [address], documented in this encounter Visit Diagnoses Diagnosis Intestinal malabsorption following gastrectomy- Primary Over weight Overweight documented in this encounter Historical Medications * This list may reflect changes made after this encounter. Medication Sig Dispensed Refills Start Date End Date multivitamin tablet Take 1 tablet by mouth 1 (one) time each day. 08/25/2024 added in this encounter Care Teams Cereal Maker Relationship Specialty Start Date End Date Genna Jones MD [address] [place] [phone] PCP - General 01/29/23 documented as of this encounter
--- OUTSIDE RECORDS SUMMARY | 2024-09-30 12:49 | XMS_ITS | Encounter Summary ---
Author Organization [employer] Address [address] [facility] 7 [place] [address] Care Team Providers Care Traffic Analyst Name Role Phone Genna Jones MD Primary Care Provider + Encounter Details Date Type Department Care Team (Late st Contact Info) Description 01/23/2023 [facility] [employer] Information Management [address] [place], [place] [phone] Genna Jones MD [address] [place] [address] Social History Tobacco Use Types Packs/Day Years Used Date Smoking Tobacco: Never Passive Smoke Exposure: Never Smokeless Tobacco: Never Alcohol Use Standard Drinks/Week Comments Never 0 (1 standard drink = 0.6 oz pur e alcohol) Depression Answer Date Recorded Patient Health Questionnaire-9 Score 6 12/08/2022 Depression Answer Date Recorded Patient Health Questionnaire-2 [...] documented as of this encounter Care Teams Traffic Analyst Relationship Specialty Start Date End Date Genna Jones MD [address] [place] [address] PCP - General Family Medicine 09/25/18 documented as of this encounter
--- OUTSIDE RECORDS SUMMARY | 2024-09-30 12:49 | XMS_ITS | Encounter Summary ---
Author Organization [employer] Address [address] [facility] [address] 7[address] [place] [address] Care Team Providers Care Machine Room Engineer Name Role Phone Genna Jones MD Primary Care Provider + Reason for Visit * Reason Onset Date Comments Hospital Follow-up 08/24/2023 Encounter Details Date Type Department Care Team ([facility] st Contact Info) Description 08/24/2023 Telephone [facility] [address] [place], [place] [phone] Genna Jones MD [address] [place], [place] [phone] Hospital Follow-up Social History Tobacco Use Types Packs/Day Years [...] encounter Miscellaneous Notes * Telephone Encounter - Yumiko Paul - 08/24/2023 3:02 PM EST Tc from pt requesting a HDF appt. Hospital: [facility] Date of admission: 08/08 Discharge date: 08/10 Diagnosed: bariatric surgery documented in this encounter Plan of Treatment Not on file documented as of this encounter Visit Diagnoses Not on filedocumented in this encounter Additional Health Concerns Assessment Noted Time PHQ-9 Depression Total Score: 6 12/09/19 23 9:21 AM EDT documented as of this encounter Care Teams Machine Room Engineer Relationship Specialty Start Date End Date Genna Jones MD [address] [place] [phone] PCP - General Family Medicine 09/25/18 documented as of this encounter
--- OUTSIDE RECORDS SUMMARY | 2024-09-30 12:49 | XMS_ITS | Encounter Summary ---
Author Organization [employer] Address [address] [facility] 7 [place] [address] Care Team Providers Care Rn Telemetry Name Role Phone Genna Jones MD Primary Care Provider + Encounter Details Date Type Department Care Team (Late st Contact Info) Description 01/23/2023 [facility] [employer] Information Management [address] [place], [place] [phone] Genna Jones MD [address] [place] [address] Social History Tobacco Use Types Packs/Day Years [...] documented as of this encounter Care Teams Rn Telemetry Relationship Specialty Start Date End Date Genna Jones MD [address] [place] [address] PCP - General Family Medicine 09/25/18 documented as of this encounter
== END 2024-09-30 11:57 | disposition home or self-care (01) ==
LOC: HO.MAMMO 11:56
PROVIDERS: PCP Internal Medicine; Visit Provider Internal Medicine
DX: R92.1 Mammographic calcification found on diagnostic imaging of breast (principal)
CPT/HCPCS: 77065

== ENCOUNTER → 2024-09-30 12:15 | Outpatient (BNV) | payer MEDICAID, SELFPAY | PROVIDERS: PCP Internal Medicine; Visit Provider Internal Medicine | DX: R92.1 Mammographic calcification found on diagnostic imaging of breast (principal); R92.322 Mammographic fibroglandular density, left breast | CPT/HCPCS: 77065 ==

== ENCOUNTER 2024-11-06 08:25 | Outpatient (AMB) | payer MEDICAID, SELFPAY ==
--- NOTE | 2024-11-06 08:28 | A.OFFVIS_ITS ---
Vital Signs 3 11/06/24 08:34 Height 5 ft 6 in Weight 162 lb BMI 26.1 BP 143/63 H Blood Pressure Location Rt brachial Position Sitting Pulse 73 Intake Visit Reasons: LT Breast Stereo Bx Cals Intake Note: Patient is seen in office for stereo biopsy CONSULT left breast calcifications. Pt c/o: denies pain, itch, nipple discharge. No personal or family hx of breast CA. Bx sched:11/06/24 [place] [employer] Lab[employer] Required: Yes Physical Chemistry Teacher: Physical Chemistry Teacher Present Accompanied by: Self / Same As Patient Allergies No Known Allergies Allergy (Verified 11/06/24 08:34) Medication List - Last Reconciled 11/06/24 by Librado Bronson MD ibuprofen 600 mg PO Q6H PRN levonorgestrel (Mirena) intrauterine HPI Comments Details: 39-year-old female patient presenting with a baseline mammogram performed on 09/12/2024 with subsequent additional imaging performed on 09/30/2024 which revealed a cluster of calcifications in the left breast at the upper outer quadrant. This was felt to be suspicious for malignancy and biopsy was recommended. She denies any previous history of breast problems or breast surgery. Her family history is negative for breast cancer. She denies any breast lumps, breast pain, skin changes, nipple discharge, or enlarged lymph nodes. She is , her 1st child was born when she was 14 years old. She has a Mirena in place in does not have full periods. [facility] lifetime risk of breast cancer is 8.6%. PFSH Medical History Abnormal Pap smear of cervix Surgical History H/O gastric sleeve Hx of tubal ligation Family History Family/Other Colon cancer Mother Colon cancer, Onset Age: 32 Maternal Grandmother Throat cancer Eye cancer Social History Household Members: Children Housing: Apartment Alcohol intake: never Patient Tobacco Use Status: Never used Tobacco Sexual orientation: Straight/Heterosexual Gender identity: Female Female Reproductive History Menstrual Total pregnancies: 2 Full term: 2 Review of Systems Const All systems reviewed & are unremarkable except as noted in HPI and below Physical Exam Vital Signs: Last Vital Signs Pulse 73 11/06/24 08:34 BP 143/63 H 11/06/24 08:34 BMI result Body Mass Index 26.1 Const General: cooperative and no acute distress Nutritional Appearance: well nourished Orientation/consciousness: patient oriented x3 Limitations: no limitations HEENT Head: Yes normocephalic and Yes atraumatic Ears: hearing grossly normal bilaterally Chest Other: Left breast: No skin change, no nipple retraction, no nipple discharge, no enlarged lymph nodes, palpable mass noted in the upper outer quadrant, at the 02:00 o'clock axis, 6 cm from the nipple, measuring approximately 1.5 cm in diameter. This does correspond to the area of calcification on mammogram. Right breast: No skin change, no nipple retraction, no nipple discharge, no palpable mass, no enlarged lymph nodes Chest/axillae images: 2 1. Site of palpable abnormality, mobile within the breast tissue with no overlying skin changes and no fixation to chest wall. Lesion is approximately 1.5 cm in diameter. There was no tenderness to palpation. Resp Effort & Inspection: normal respiratory effort, no audible wheezes, no cough and no respiratory distress Cardio Jugular venous distension: no JVD GI Inspection: Yes normal to inspection Skin Other: Warm, dry, no rash Neuro General: patient oriented x3 Extrem General: Yes no clubbing, cyanosis or edema Results Reviewed Results Reviewed: Mammogram 09/12/2024: Assessment & Plan Assessment & Plan (1) Abnormal mammogram of left breast: Code(s): R92.8 - Other abnormal and inconclusive findings on diagnostic imaging of breast Category: Medical Plan 39-year-old female patient presenting with a screening mammogram performed on 09/12/2024 with subsequent additional views obtained on 09/30/2024 which revealed a area of calcification in the upper outer quadrant of the left breast. This was her 1st mammogram therefore the finding was felt to be suspicious for malignancy and stereotactic guided core biopsy is recommended. She is scheduled for a biopsy later today at the [facility]. On examination there is indeed a palpable mass in the upper outer quadrant of the left breast corresponding to the findings on mammogram. No adenopathy is appreciated. I recommended patient return approximately 1 week to review the pathology results and discuss treatment options. She expressed understanding and agrees with the plan. Orders: Orders 2 MM stereotactic biopsy LT Today R92.8 - Other abnormal and inconclusive findings on diagnostic imaging of breast Coding Level of Care Code New Pt Level 4 (41511) Diagnoses Abnormal mammogram of left breast R92.8
[2024-11-06 08:34] VITALS: BP 143/63; PULSE 73; BMI 26.1
--- OUTSIDE RECORDS SUMMARY | 2024-11-06 08:55 | XMS_ITS | Clinical Summary ---
Author Organization [address] [place] [address] Address [address] [place] [address] Phone Care Team Providers Care Manager Cancer Name Role Phone Genna Jones MD Primary Care Provider Allergies No known active allergies Medications wheat dextrin 3 gram/3.8 gram powder Take 4 g by mouth daily. 3 Active cholecalciferol (VITAMIN D-3) 1,250 mcg (50,000 unit) capsule TAKE 1 CAPSULE BY MOUTH 1 TIME A WEEK 3 Active multivitamin tablet Take 1 tablet by mouth 1 (one) time each day. 4 Active zinc gluconate 50 mg tabletIndications: Postoperative malabsorption Take 1 tablet (50 mg total) by mouth 1 (one) time each day. 30 tablet 5 09/16/19 26 Active Active Problems Problem Noted Date Diagnosed Date Class 1 obesity due to exces s calories without serious comorbidity with body mass index (BMI) of 30.0 to 30.9 in adult 07/21/2024 Encounters Date Type Department Care Team Description 09/11/2024 3:15 PM EST Office Visit Bariatric Surgery [facility] [address] [place] [address] José Luis Elliott MD Intestinal malabsorption following gastrectomy (Primary Dx); Over weight from Last 3 Months Immunizations Name Administration Dates Next Due Pfizer SARS-CoV-2 COVID-19, mRNA, LNP-S, preservative free 01/19/2021,12/28/2020 Social History Tobacco Use Types Packs/Day Years Used Date Smoking Tobacco: Never Assessed Smokeless Tobacco: Never Comments Unknown Sex and Gender Information Value Date Recorded Sex Assigned at Not on file Legal Sex Female 1:46 AM EST Gender Identity Not on file Sexual Orientation Not on file Obstetrics History Last Filed [...] PM EDT Office Visit Bariatric Surgery - [place] [address] [place] [phone] José Luis Elliott MD [address] [place] [address] Health Maintenance Due Date Last Done Comments [...] patient's age to complete this topic Meningococcal B Vacine Aged Out No lo nger eligible based on patient's age to complete [...] developed and the performance characteristics determined by [facility]. It has not been cleared or approved by the FDA. The laboratory is regulated under CLIA as qualified to perform high-complexity testing. This test is used for patient testing purposes. It should not be regarded as investigational or for research. Test performed at [facility], [address] , [place], [place] ??[address] ? [phone] Pauline Whitman MD, PhD - Quarter Supervisor Blood Venous blood specimen / Unknown Venipuncture / Unknown 09/11/2024 3:37 PM EST 09/11/2024 3:37 PM EST José Luis Elliott MD LAB BLOOD ORDERABLES Final R esult [facility] [address] [place] [address] * (ABNORMAL) Vitamin D 25 hydroxy (09/11/2024 3:37 PM EST) Vit D, 25-Hydroxy 21.7(L) 30.0 - 80.0 ng/mL LAB CHEMISTRY METHOD 09/11/2024 9:[address] [facility] Blood Venous blood specimen / Unknown Venipuncture / Unknown 09/11/2024 3:37 PM EST 09/11/2024 3:37 PM EST José Luis Elliott MD LAB BLOOD ORDERABLES Final R esult [facility] [address] [place] [address], [place] [phone] * Folate (09/11/2024 3:37 PM EST) Folate 11.0 2.8 - 17.0 ng/ml LAB CHEMISTRY METHOD 09/11/2024 10:[address] [facility] Blood Venous blood specimen / Unknown Venipuncture / Unknown 09/11/2024 3:37 PM EST 09/11/2024 3:37 PM EST José Luis Elliott MD LAB BLOOD ORDERABLES Final R esult [facility] [address] [place] [address], * (ABNORMAL) Lipid panel (04/18/2023) [facility] LDL/HDL Ratio 4 0 - 4 Triglycerides 77 0 - 150 mg/dL Cholesterol 208(A) 0 - 200 mg/dL HDL 52 >=40 mg/dL LDL Cholesterol 141(A) 0 - 100 mg/dL Blood Venous blood specimen / Unknown Result [facility] Historical Provider LAB BLOOD ORDERABLES Mabel l Result * Pap Smear (02/22/2023) [facility] Pap smear no interpretation , abstracted Historical Provider HEALTH MAINTENANCE Final Result * HIV Screening (12/08/2022) [facility] HIV Screening abstracted Result [facility] Historical Provider HEALTH MAINTENANCE Final Result * Hepatitis C Screening (12/08/2022) [facility] Hepatitis C Screening Abstracted Result [facility] Historical Provider HEALTH MAINTENANCE Final Result from Last 3 Months or Most Recently Relevant to Health Maintenance Insurance MEDICAID - [place] Care Teams Manager Cancer Relationship Specialty Start Date End Date Genna Jones MD [address] [place] [phone] PCP - General 01/29/23
--- OUTSIDE RECORDS SUMMARY | 2024-11-06 08:55 | XMS_ITS | Encounter Summary ---
Author Organization [employer] Address [address] 7 [place] [address] Care Team Providers Care Digital Community Manager Name Role Phone Genna Jones MD Primary Care Provider + Encounter Details Date Type Department Care Team (Late st Contact Info) Description 01/23/2023 [facility] [employer] [facility] [address] [place], [place] [phone] Genna Jones MD [address] [place] [address] Social History Tobacco Use Types Packs/Day Years [...] documented as of this encounter Care Teams Digital Community Manager Relationship Specialty Start Date End Date Genna Jones MD [address] [place] [address] PCP - General Family Medicine 09/25/18 documented as of this encounter
--- OUTSIDE RECORDS SUMMARY | 2024-11-06 08:55 | XMS_ITS | Encounter Summary ---
Author Organization [employer] Address [address] [place] [address] Care Team Providers Care Remote Coders Name Role Phone Genna Jones MD Primary Care Provider + Encounter Details Date Type Department Care Team (Late st Contact Info) Description 01/23/2023 [facility] [employer] Information Management [address] [place], [place] [phone] Genna Jones MD [address] [place] [address] Social History Tobacco Use Types Packs/Day Years [...] documented as of this encounter Care Teams Remote Coders Relationship Specialty Start Date End Date Genna Jones MD [address] [place] [address] PCP - General Family Medicine 09/25/18 documented as of this encounter
--- OUTSIDE RECORDS SUMMARY | 2024-11-06 08:55 | XMS_ITS | Encounter Summary ---
Author Organization [employer] Address [address] [place] [address] Care Team Providers Care Rn Licensed Practical Name Role Phone Genna Jones MD Primary Care Provider + Reason for Visit * Reason Onset Date Comments Hospital Follow-up 08/24/2023 Encounter Details Date Type Department Care Team ([facility] st Contact Info) Description 08/24/2023 Telephone [facility]INE [address] [place], [place] [phone] Genna Jones MD [address] [place], [place] [phone] Hospital Follow-up Social History Tobacco Use Types [...] from pt requesting a HDF appt. Hospital: [facility] Date of admission: 08/08 Discharge date: 08/10 Diagnosed: bariatric surgery documented in this encounter Plan of Treatment Not on file documented as of this encounter Visit Diagnoses Not on filedocumented in this encounter Additional Health Concerns Assessment Noted Time PHQ-9 Depression Total Score: 6 12/09/19 23 9:21 AM EDT documented as of this encounter Care Teams Rn Licensed Practical Relationship Specialty Start Date End Date Genna Jones MD [address] [place] [phone] PCP - General Family Medicine 09/25/18 documented as of this encounter
--- OUTSIDE RECORDS SUMMARY | 2024-11-06 08:55 | XMS_ITS | Encounter Summary ---
Author Organization [employer] Address [address] [place] [address] Care Team Providers Care Hide Trimmer Name Role Phone Genna Jones MD Primary Care Provider + Reason for Visit * Reason Onset Date Comments Appointment Request 08/13/2023 Encounter Details Date Type Department Care Team ([facility] st Contact Info) Description 08/13/2023 Telephone [facility] MEDICINE [address] [place], [place] [phone] Genna Jones MD [address] [place], [place] [phone] Appointment Request Social History Tobacco Use Types [...] documented as of this encounter Care Teams Hide Trimmer Relationship Specialty Start Date End Date Genna Jones MD [address] [place] [phone] PCP - General Family Medicine 09/25/18 documented as of this encounter
--- OUTSIDE RECORDS SUMMARY | 2024-11-06 08:55 | XMS_ITS | Clinical Summary ---
Author Organization [facility] Address [address] [place] [address] Care Team Providers Care Certified Medical Coder Name Role Phone Unavailable Primary Care Provider [...] Cervical Cancer Screening 2005 Pap Smear 2005 [id number] ( season) 2024 021, 12/28/2020 Imm-Influenza (#1) 2024 09/28/2020, 06/06/2016 Breast Cancer Screening (Mammogram) 2024 Alcohol and Drug Screen 08/27/2024 Depression Annual Screen 08/27/2024 Imm-DTaP/Tdap/Td (3 - Td or Tdap) 09/28/2030 021, 04/16/2020 Cervical Ablation/Cold-Knife Conization Discontinued Cervical Cryotherapy Discontinued Colposcopy Discontinued Endometrial Biopsy Discontinued Excision/Leep Discontinued HPV Genotyping Discontinued Vaginal Pap Discontinued Vulvoscopy Discontinued Insurance [facility] ([facility]) Member Subscriber Plan / Payer (Ef fective 2019-Present) Name:Madison Sethi Relation to Subscriber:Self Name:Madison Sethi Payer ID:[id number] Group ID:Not on file Type:Indemnity Address: [address] [place] [id number]
--- OUTSIDE RECORDS SUMMARY | 2024-11-06 08:55 | XMS_ITS | Encounter Summary ---
Author Organization [employer] Address [address] [place] [address] Care Team Providers Care Cloth Folder Hand Name Role Phone Genna Jones MD Primary Care Provider + Reason for Visit * Reason Onset Date Comments Nurse Triage 07/09/2023 Encounter Details Date Type Department Care Team ([facility] st Contact Info) Description 07/09/2023 Telephone [facility] [address] [place], [place] [phone] Genna Jones MD [address] [place], [place] [phone] Nurse Triage Social History Tobacco Use Types [...] 07/09/2023 3:16 PM EST Triage call with [employer] [place] [id number] Pt reports chronic constipation. Last BM was [...] be seen - You become worse * [id number] * Step 1 - Fiber Laxatives, Every [...] accepted this outcome Please contact pt at [phone] Japanese Speaker documented in this encounter Plan of Treatment Not on file documented as of this encounter Visit Diagnoses Not on filedocumented in this encounter Additional Health Concerns Assessment Noted Time PHQ-9 Depression Total Score: 6 12/09/19 23 9:21 AM EDT documented as of this encounter Care Teams Cloth Folder Hand Relationship Specialty Start Date End Date Genna Jones MD [address] [place] [phone] PCP - General Family Medicine 09/25/18 documented as of this encounter
--- OUTSIDE RECORDS SUMMARY | 2024-11-06 08:55 | XMS_ITS | Clinical Summary ---
Author Organization [employer] Address [address] [place] [address] Care Team Providers Care Snow Blower Name Role Phone Genna Jones MD Primary Care Provider + Allergies No known active allergies Medications polyethylene glycol, PEG, 3350 (Miralax) 17 g packet Take 17 g by mouth if needed each day. 08/02/2023 Active Multiple Vitamin (multivitamin) capsule Take 1 capsule by mouth Once per day. 90 capsule 3 08/25/2024 Active Active Problems Problem Noted Date Diagnosed [...] series today, declined Covid booster. FU with GEOGRAPHY PROFESSOR re HPV #3 Dental visit: UTD, next [...] syphilis? Chlamydia? I will order RPR. Contact GEOGRAPHY PROFESSOR for genital exam, PAP is due on [...] adult 09/25/2018 05/15/2024 Overview (10/22/2022): -Following with [facility], although appears difficulty getting approved [...] weight reduction program, she is going to [facility] program. Discussed re weight reduction options including exercise, life style modifications, diet, referral to cessation systems outreach specialist. Discussed re lower calorie intake, increase dietary fiber Will consider metformin or other parenteral medications for weight reduction if bariatric surgery not approved. Assessment & Plan (10/22/2022 8:36 PM EST): -Will fax over today's office visit with further list of conditions Encounters Date Type Department Care Team Description 10/01/2024 Telephone [facility] [place] [address] Genna Jones MD Results 09/30/2024 Orders Only [address] [address] Genna Jones MD 09/25/[address] [address] Genna Jones MD Appointment Request 08/25/2024 2:30 PM EST Office Visit [address] [address] Genna Jones MD Encounter for preventive health examination (Primary Dx); Acute vaginitis; Screening mammogram for breast cancer; Need for vaccination 08/25/2024 Orders Only [address] [address] Genna Jones MD 08/25/2024 Travel 08/18/2024 Travel 08/14/2024 Patient Outreach [address] [address] Genna Jones MD Care Coordination ([facility] outreach for [place] housing search-referral completed ) 08/14/2024 Patient Outreach [address] [address] Genna Jones MD Pre-visit Planning (SDOH screening is positive) from Last 3 Months Immunizations Name Administration [...] with others, in a hotel, in a fci, living outside on the street, on a [...] (PISQ) 1999 Depression Screening 12/09/2023 12/08/2022, 12/09/19 COVID-19 Vaccine ( season) 2024 07/29/2021, 01/19/2021, 12/28/2020 Hepatitis B Vaccines (2 of 3 - 19+ 3-dose series) 09/22/2024 08/25/2024 HPV Vaccines (3 - 3-dose SCDM series) 11/16/2024 07/22/2024, 05/19/2024 Diabetes: Hemoglobin A1C 05/15/2025 024, 12/08/2022, 05/30/2021, Additional history exists SDOH Screening 08/14/2025 08/14/2024 Tobacco Screening 08/25/2025 08/25/2024 Diagnostic Breast Imaging 09/30/2025 09/30/2024 Pap Smear 05/08/2027 05/08/2024, 01/26, 02/22/2023 Cervical Cancer Screening 05/08/2029 HPV/Cotest 05/08/2029 [...] Priority Date/Time Associated Diagnosis Comments BI MAMMOGRAM ADDITIONAL VIEWS LEFT Routine 09/30/2024 12:15 PM EST BI MAMMOGRAM SCREENING TOMOSYNTHESIS BILATERAL Routine 09/12/2024 2:40 PM EST Screening mammogram for breast cancer BACTERIAL VAGINOSIS PANEL Routine 08/25/2024 3:51 PM EST CHLAMYDIA/N. GONORRHOEAE RNA, TMA, UROGENITAL Routine 08/25/2024 3:51 PM EST Acute vaginitis HEPATITIS PANEL, GENERAL Routine 06/02/2024 9:33 AM [...] Recently Relevant to Health Maintenance Results * Left mammogram, additional views (09/30/2024 12:15 PM EST) Anatomical Region Laterality Modality Breast Left Mammography 09/30/2024 12:1 5 PM EST Narrative 09/30/2024 1:55 PM EST ? [facility] ? [address] ?[place] [address] ? Mammography Report ? Signed ? Patient: Madison Sethi ?MR#: [id number] ?? 8 ? : 1985 ?Acct:[id number] ? Age/Sex: 39 / F ?ADM Date: 09/30/24 ? Loc: HO.MAMMO ? Attending Dr: Genna Jones MD ? Ordering Physician: Genna Jones MD ?Results: 4Su ?? spicious Finding ? Date of Service: 09/30/24 ?Follow Up: Biopsy Recommend ?? ed ? Procedure(s): MM added views LT ?? Accession Number(s): [id number] ? cc: Genna Jones MD ? EXAMINATION: ?? MM DIAGNOSTIC DIGITAL MAMMOGRAPHY, LEFT ? CLINICAL INFORMATION: ? Call back from baseline screening for grouped calcifications in the ?? upper outer quadrant. ? COMPARISON: ?? Mammography: Baseline screening mammography September 12, 2024. ? TECHNIQUE: ?? Digital mammography is performed in the following views: ??CC and MLO ?? magnification views. ? FINDINGS: ?? There are scattered areas of fibroglandular density (ACR BI-RADS breast ?? composition Category b). ? There are grouped rounded punctate calcifications in the upper outer ?? quadrant posterior depth. ?? No suspicious masses or other abnormal findings. ? Results are discussed with the patient at time of visit. ? MM/MM added views LT ?? IMPRESSION: ?? Grouped calcifications in the upper outer breast posterior depth on ?? baseline screening mammography. Recommend stereotactic core needle ?? biopsy at this time for confirmation. The findings and recommendations ?? were discussed with the patient the procedure will be scheduled. ? ASSESSMENT: ? BI-RADS BI-RADS 4 - Suspicious finding ? RECOMMENDATION: ?? Biopsy recommended ? This patient's information was entered into a reminder system with a ?? target due date for their next mammogram. ? Electronically signed by: ??Ny Matos DO ??09/30/2024 01:52 PM EST ? Dictated By: ?Ny Matos DO ? Signed By: ?<Electronically signed by Ny Tyminski, DO in OV> ? 09/30/24 1352 ? DD/ 1215 ? TD/TT: 09/30/24 1230 ? Insurance Risk Analyst: ? Procedure Note Donato, Patricia - 09/30/2024 [facility] [address] [place] [address] [place] [address] Mammography Report Signed Patient: Michael Sethi#: [id number] 8 : 1985Acct:[id number] Age/Sex: 39 / FADM Date: 09/30/24 Loc: HO.MAMMO Attending Dr: Genna Jones MD Ordering Physician: Genna Jonesults: 4Su spicious Finding Date of Service: 09/30/24Follow Up: Biopsy Recommend ed Procedure(s): MM added views LT Accession Number(s): [id number] cc: Genna Jones MD EXAMINATION: MM DIAGNOSTIC DIGITAL MAMMOGRAPHY, LEFT CLINICAL INFORMATION: Call back from baseline screening for grouped calcifications in the upper outer quadrant. COMPARISON: Mammography: Baseline screening mammography September 12, 2024. TECHNIQUE: Digital mammography is performed in the following views: CC and MLO magnification views. FINDINGS: There are scattered areas of fibroglandular density (ACR BI-RADS breast composition Category b). There are grouped rounded punctate calcifications in the upper outer quadrant posterior depth. No suspicious masses or other abnormal findings. Results are discussed with the patient at time of visit. MM/MM added views LT IMPRESSION: Grouped calcifications in the upper outer breast posterior depth on baseline screening mammography. Recommend stereotactic core needle biopsy at this time for confirmation. The findings and recommendations were discussed with the patient the procedure will be scheduled. ASSESSMENT: BI-RADS BI-RADS 4 - Suspicious finding RECOMMENDATION: Biopsy recommended This patient's information was entered into a reminder system with a target due date for their next mammogram. Electronically signed by: Ny Matos DO 09/30/2024 01:52 PM EST RP Dictated By: Ny Matos DO Signed By: <Electronically signed by Ny Matos DO in OV> 09/30/24 1352 DD/ 1215 TD/TT: 09/30/24 1230 Insurance Risk Analyst: Genna Jones MD IMG BI PROCEDURES Final Result * BI Mammogram Screening Tomosynthesis Bilateral (09/12/2024 2:40 PM EST) Anatomical Region Laterality Modality Breast Bilateral Mammography 09/12/2024 2:40 PM EST Narrative 09/21/2024 2:07 PM EST ? [facility] ? [address] ?[place] [address] ? Mammography Report ? Signed ? Patient: Sethi,Madison ?MR#: [id number] ?? 8 ? : 1985 ?Acct:[id number] ? Age/Sex: 39 / F ?ADM Date: 01/17/25 ? Loc: HO.MAMMO ? Attending Dr: Genna Jones MD ? Ordering Physician: Genna Jones MD ?Results: 0In ?? complete: Needs Additional Imaging Evaluation ? Date of Service: 09/12/24 ?Follow Up: Additional Imagi ?? ng ? Procedure(s): MM tomosynthesis screening BI ?? Accession Number(s): [id number] ? cc: Genna Jones MD ? EXAMINATION: [...] ??Ny Matos DO ??09/21/2024 02:04 PM EST ? Dictated By: ?Ny Matos DO ? Signed By: ?<Electronically signed by Ny Matos, DO in OV> ? 09/21/24 1404 ? DD/ 1440 ? TD/TT: 09/12/24 1516 ? Insurance Risk Analyst: ? Procedure Note Doncrystalchidijuancarloster, Image - 09/21/2024 [place] [facility] [address] [place] [address] Mammography Report Signed Patient: Michael Sethi#: [id number] 8 : 1985Acct:[id number] Age/Sex: 39 / FADM Date: 09/12/24 Loc: HO.MAMMO Attending Dr: Genna Jones MD Ordering Physician: Genna Jones MDResults: 0In complete: Needs Additional Imaging Evaluation Date of Service: 09/12/24Follow Up: Additional Imagi ng Procedure(s): MM tomosynthesis screening BI Accession Number(s): [id number] cc: Genna Jones MD EXAMINATION: MM SCREENING [...] Ny Matos DO 09/21/2024 02:04 PM EST Dictated By: Ny Matos DO Signed By: <Electronically signed by Ny Matos DO in OV> 09/21/24 1404 DD/ 1440 TD/TT: 09/12/24 1516 Insurance Risk Analyst: Genna Jones MD IMG BI PROCEDURES Edited Result - Final * Bacterial Vaginosis (08/25/2024 3:51 PM EST) TRICHOMONAS VAGINALIS DETECTION BY PCR NOT DETECTED Not Detect [facility] BACTERIAL VAGINOSIS DETECTION BY PCR NEGATIVE Negative [facility] Comment:The BV organism targ ets of [...] DETECTION BY PCR NOT DETECTED Not Detect [facility] Jennifer glab krusei PCR NOT DETECTED Not Detect [facility] 08/25/2024 3:51 PM EST 08/26/2024 11:50 AM EST Genna Jones MD LAB MICROBIOLOGY - GENER AL ORDERABLES Final Result [facility] [address] [place] [address] [phone] * Chlamydia/N. Gonorrhoeae RNA, TMA, Urogenitial (08/25/2024 3:51 PM EST) CT PCR NOT DETECTED Not Detect. [facility] Comment:A not detected test result does [...] psychologicalconsequences. NG PCR NOT DETECTED Not Detect. [facility] Comment:A not detected test result does [...] PM EST 08/26/2024 12:11 PM EST Narrative [facility] - 08/26/2024 1:52 PM EST Vaginal us Genna Jones MD LAB MICROBIOLOGY - GENER AL ORDERABLES Final Result Performing Organization Address [facility] Co de Phone Number [facility] [address] [place] [address] [phone] * (ABNORMAL) Lipid Panel with Reflex to Direct LDL (06/02/2024 9:33 AM EDT) Triglycerides 68 <150 mg/dL [facility] Comment:Desirable Triglyceri de: less than 150 mg/dLBorderline High Triglyceride 150-199 mg/dLHigh Triglyceride: 200-499 mg/dLVery High Triglyceride: greater than or equal to 5OO mg/dL Cholesterol 209(H) <200 mg/dL [facility] Comment:Desirable Cholestero l: less than 200 mg/dLBorderline High Cholesterol: 200-239 mg/dLHigh Cholesterol: greater than 239 mg/dL LDL Cholesterol Calculated 141(H) <100 mg/dL [facility] Comment:Desirable LDL: less than 100 mg/dLNear Optimal/Above Optimal LDL: 110- 129 mg/dLBorderline High LDL: 130-159 mg/dLHigh LDL: 160-189 mg/dLVery High LDL: greater than or equal to 190 mg/dL HDL Cholesterol 55 >40 mg/dL [facility] Comment:Desirable HDL: great er than 40 mg/dL Note: This HDL assay may give artificially low results in patients with liver disease. Blood 06/02/2024 9:33 AM EDT 06/02/2024 11:15 AM EDT us Genna Jones MD LAB BLOOD ORDERABLES Fin al Result Performing Organization Address [facility]/ZIP Co de Phone Number [facility] [address] [place] [address] [phone] * Hepatitis Panel, General (06/02/2024 9:33 AM EDT) Hepatitis A IgM Nonreactive Nonreactive [facility] Comment:IgM antibodies to BRAY V not detected; does not exclude earlyacute or recovered HAV infection. ~Hepatitis B Surface Antibody NONREACTIVE Nonreactive [facility] Comment:Nonreactive: < 8.00 mIU/mL Hepatitis B Core Antibody Nonreactive Nonreactive [facility] Hepatitis C Antibody Nonreactive Nonreactive [facility] Comment:Antibodies to HCV no t detected; does not exclude early acuteHCV infection. Hepatitis B Surface Ag Negative Negative [facility] Blood 06/02/2024 9:33 AM EDT 06/02/2024 11:15 AM EDT Genna Jones MD LAB BLOOD ORDERABLES Fin al Result [facility] [address] [place] [phone] * POCT HGB A1C (05/15/2024 9:13 AM EDT) Hemoglobin A1C 5.6 4.0 - 6.0 % QC Media Lot # [id number] Lot# Expiration Date 0018,[id number] Blood 05/15/2024 9:13 AM EDT Genna Jones MD POINT OF CARE TEST ENTER /EDIT ORDERABLES Final Result * ThinPrep Imaging Pap and HPV mRNA E6/E7 with Reflex to HPV 16,18/45 (05/08/2024 2:18 PM EDT) HPV 16 RNA TNP [facility] HPV 18/45 RNA [facility] HPV nRNA E6/E7 Not Detected Not Detected [facility] Comment:Methodology: Transcr iption-Mediated AmplificationThis assay detects E6/E7 viral messenger RNA (mRNA) from 14high-risk HPV types (16,18,31,33,35,39,45,51,52,56,58,59,66,68).Cervical sources are required for HPV testing.If a vaginal source from a patient who has had atotal hysterectomy with removal of cervix wassubmitted, please contact the testing laboratoryfor alternative testing options.For additional information, please refer tohttp://education.[employer]/faq/TMG590t7(This link if provided for information/educational purposes only.)THIS TEST WAS PERFORMED AT:[facility] [address] [phone] BANKS MD SOURCE: SEE NOTE [facility] Comment:None given Report Status: [facility] Clinical Information: SEE NOTE [facility] Comment:None given LMP: SEE NOTE [facility] Comment:NONE GIVEN Prev. PAP: SEE NOTE [facility] Comment:NONE GIVEN Prev. BX: SEE NOTE [facility] Comment:NONE GIVEN Statement Of Adequacy: SEE NOTE [facility] Comment:Satisfactory for nicol luation.Endocervical/transformation zone componentpresent. General Categorization: [facility] Interpretation/Result: SEE NOTE [facility] Comment:Cytology Results: Ne gative for intraepitheliallesion or malignancy. Cytology Comment SEE NOTE [facility] Comment:This Pap test has be en evaluated with computerassisted technology. [employer]: SEE NOTE [facility] Comment:KF, CT(ASCP)CT scree rashad location: [place] [address] Review [employer]: SEE NOTE [facility] Comment:MPG, CT(ASCP)CT scre ening location: [place] [address] Pathologist [facility] PAP Infection [facility] See Note SEE NOTE [facility] Comment:EXPLANATORY NOTE:The Pap is a screening test for cervical cancer. It isnot a diagnostic test and is subject to false negativeand false positive results. It is most reliable when asatisfactory sample, regularly obtained, is submittedwith relevant clinical findings and history, and whenthe Pap result is evaluated along with historic andcurrent clinical information. 05/08/2024 2:18 PM EDT 05/08/2024 3:57 PM EDT Narrative [facility] - 05/13/2024 3:15 PM EDT SEE SCANNED RESULTS IN EMR us Generic External Data Provider LAB PATHOLOGY ORD ERABLES Final Result [facility] [address] [place] [phone] * HIV-1/2 Antigen and Antibodies, Fourth Generation, with Reflexes (12/08/2022 9:54 AM EDT) HIV Antigen/Antibody, 4th Generation NON-REAC TIVE NON-REAC TIVE [facility] [place] [facility] Comment: HIV-1 antigen and HIV-1/HIV-2 antibodies [...] ?? For additional information please refer to http://education.[employer]/faq/KHN945 (This link is being provided for informational/ educational purposes only.) The performance of this assay has not been clinically validated in patients less than 2 years old. Blood Venous blood specimen / Unknown 12/08/2022 9:54 AM EDT 12/08/2022 9:55 AM EDT Narrative [facility] - 12/13/2022 11:15 PM EDT FASTING:YES FASTING: YES us Genna Jones MD LAB BLOOD ORDERABLES Fin al Result [facility] [address], [place] [address] [employer] [place] [employer] [address] [place] [address] from Last 3 Months or Most Recently Relevant to Health Maintenance Insurance [facility] [facility] C3 Care Teams Snow Blower Relationship Specialty Start Date End Date Genna Jones MD [address] [place] [phone] PCP - General Family Medicine 09/25/18
--- OUTSIDE RECORDS SUMMARY | 2024-11-06 08:55 | XMS_ITS | Encounter Summary ---
Author Organization [employer] Address [address] [place] [address] Care Team Providers Care Oyster Worker Name Role Phone Genna Jones MD Primary Care Provider + Encounter Details Date Type Department Care Team (Late st Contact Info) Description 07/11/2024 Orders Only [facility] [address] [place], [place] [phone] Genna Jones MD [address] [place], [place] [phone] Social History Tobacco Use Types Packs/Day Years [...] documented as of this encounter Care Teams Oyster Worker Relationship Specialty Start Date End Date Genna Jones MD [address] [place] [phone] PCP - General Family Medicine 09/25/18 documented as of this encounter
== END 2024-11-06 08:51 | disposition home or self-care (01) ==
LOC: HO.HGS 08:26
PROVIDERS: PCP Internal Medicine; Visit Provider Surgery
DX: R92.8 Other abnormal and inconclusive findings on diagnostic imaging of breast (principal)
CPT/HCPCS: 99204

== ENCOUNTER 2024-11-06 08:56 | Outpatient (REF) | payer MEDICAID, SELFPAY ==
--- NOTE | ~2024-11-06 | MM_ITS ---
EXAMINATION: STEREOTACTICALLY-GUIDED LEFT BREAST BIOPSY CLINICAL INFORMATION: Grouped calcifications in the upper outer left breast posterior depth on baseline mammogram. COMPARISON: Available priors on PACS. INFORMED CONSENT: After the details of the procedure, as well as the risks (including, but not limited to, bleeding, hematoma formation, and infection), benefits and alternatives (including doing nothing, short-interval follow up, and surgery) to the procedure were explained to the patient in detail and all of her questions were answered, informed written consent was obtained. TECHNIQUE/FINDINGS: A timeout was performed. The lesion intended for biopsy was identified stereotactically and targeted. The skin of the left breast was then cleansed with sterile solution. Using stereotactic guidance, aseptic technique, and 1% lidocaine with and without epinephrine for local anesthesia, a total of 12 cores were obtained through the targeted area with a 9-gauge vacuum-assisted Eviva core biopsy device from a superior approach. Specimen radiography reveals the targeted calcifications in the sampled tissue. At the completion of tissue sampling, a single cork-shaped metallic clip was deposited at the biopsy site. Adequate sampling was achieved. The postprocedure 2-view direct digital mammogram reveals satisfactory positioning of the biopsy clip. The patient tolerated the procedure well and, after assuring adequate hemostasis, was discharged in good condition after reviewing postbiopsy breast care instructions. Final pathology results are pending. MM/MM stereotactic biopsy LT IMPRESSION: 1. Uncomplicated stereotactically-guided core biopsy of the left breast. The 2-view direct digital postprocedure mammogram reveals satisfactory positioning of the biopsy clip. 2. Final pathology results are pending. A separate report with final recommendations will be issued once these results are made available. Electronically signed by: Ny Matos DO 11/06/2024 10:58 AM EDT
--- OUTSIDE RECORDS SUMMARY | 2024-11-06 09:58 | XMS_ITS | Clinical Summary ---
Author Organization [facility] Address [address] [place] [address] Care Team Providers Care Rn Cardiac Name Role Phone Unavailable Primary Care Provider [...] Cervical Cancer Screening 2005 Pap Smear 2005 [id number] ( season) 2024 021, 12/28/2020 Imm-Influenza (#1) 2024 09/28/2020, 06/06/2016 Breast Cancer Screening (Mammogram) 2024 Alcohol and Drug Screen 08/27/2024 Depression Annual Screen 08/27/2024 Imm-DTaP/Tdap/Td (3 - Td or Tdap) 09/28/2030 021, 04/16/2020 Cervical Ablation/Cold-Knife Conization Discontinued Cervical Cryotherapy Discontinued Colposcopy Discontinued Endometrial Biopsy Discontinued Excision/Leep Discontinued HPV Genotyping Discontinued Vaginal Pap Discontinued Vulvoscopy Discontinued Insurance [employer] ([facility]) Member Subscriber Plan / Payer (Ef fective 2019-Present) Name:Madison Sethi Relation to Subscriber:Self Name:Madison Sethi Payer ID:[id number] Group ID:Not on file Type:Indemnity Address: [address] [place] [id number]
[2024-11-06] MEDS: Lidocaine HCl 1 % 20 ML VIAL 4 ML SUBCUT (10:41)
[2024-11-06] MEDS: Sodium Bicarbonate 8.4% 50 MEQ/50 ML VIAL SUBCUT (10:43)
[2024-11-06] MEDS: Lidocaine HCl 1%/Epi 1:100,000 10 ML VIAL 12 ML SUBCUT (10:44)
== END 2024-11-06 08:57 | disposition home or self-care (01) ==
LOC: HO.MAMMO 08:56
PROVIDERS: PCP Internal Medicine; Visit Provider Surgery
DX: R92.1 Mammographic calcification found on diagnostic imaging of breast (principal); N60.22 Fibroadenosis of left breast
CPT/HCPCS: 19081; 88305; 99202; A4648; J2003; J2004

== ENCOUNTER → 2024-11-06 10:00 | Outpatient (BNV) | payer MEDICAID, SELFPAY | PROVIDERS: PCP Internal Medicine; Visit Provider Internal Medicine | DX: N60.32 Fibrosclerosis of left breast (principal) | CPT/HCPCS: 19081 ==

== ENCOUNTER 2024-11-14 09:19 | Outpatient (AMB) | payer MEDICAID, SELFPAY ==
--- NOTE | 2024-11-14 09:38 | A.OFFVIS_ITS ---
Vital Signs 11/14/24 09:47 Height 5 ft 6 in Weight 160 lb 14.999 oz BMI 26.0 Intake Visit Reasons: Biopsy results LT Breast Stereo Bx Cals Intake Note: Patient is seen in office for stereo biopsy RESULTS left breast calcifications. Pt c/o: denies any concerns, here for results Allergies No Known Allergies Allergy (Verified 11/06/24 08:34) Medication List - Last Reconciled 11/14/24 by Librado Bronson MD ibuprofen 600 mg PO Q6H PRN levonorgestrel (Mirena) intrauterine HPI Comments Details: 39-year-old female patient presenting with a baseline mammogram performed on 08/27 with subsequent additional imaging performed on 09/30/2024 which revealed a cluster of calcifications in the left breast at the upper outer quadrant. This was felt to be suspicious for malignancy and biopsy was recommended. She denies any previous history of breast problems or breast surgery. Her family history is negative for breast cancer. She denies any breast lumps, breast pain, skin changes, nipple discharge, or enlarged lymph nodes. She is , her 1st child was born when she was 14 years old. She has a Mirena in place in does not have full periods. [facility] lifetime risk of breast cancer is 8.6%. She underwent a stereotactic guided core biopsy at the [facility] on 11/06/2024. Pathology revealed breast tissue with sclerosing adenosis, fibrocystic changes, calcifications and usual ductal hyperplasia; no atypia or malignancy was identified. This was found to correlate with the radiologic findings and routine follow-up mammogram is recommended in 1 year. The patient tolerated the procedure well and denies any ongoing breast symptoms. [facility] Medical History Abnormal Pap smear of cervix Surgical History H/O gastric sleeve Hx of tubal ligation Family History Family/Other Colon cancer Mother Colon cancer, Onset Age: 32 Maternal Grandmother Throat cancer Eye cancer Social History Household Members: Children Housing: Apartment Alcohol intake: never Patient Tobacco Use Status: Never used Tobacco Sexual orientation: Straight/Heterosexual Gender identity: Female Review of Systems Const All systems reviewed & are unremarkable except as noted in HPI and below Physical Exam Const General: no acute distress Nutritional Appearance: well nourished Orientation/consciousness: patient oriented x3 Chest Other: Exam deferred Resp Effort & Inspection: normal respiratory effort Skin Other: Warm and dry, no rash Neuro General: patient oriented x3 Extrem Other: No edema Assessment & Plan Assessment & Plan (1) Abnormal mammogram of left breast: Code(s): R92.8 - Other abnormal and inconclusive findings on diagnostic imaging of breast Category: Medical Plan 39-year-old female patient presenting with a screening mammogram performed on 09/12/2024 with subsequent additional views obtained on 09/30/2024 which revealed a area of calcification in the upper outer quadrant of the left breast. This was her 1st mammogram therefore the finding was felt to be suspicious for malignancy and stereotactic guided core biopsy is recommended. She underwent a stereotactic guided core biopsy at the [facility] on 11/06/2024. The results revealed benign breast tissue with no atypia or malignancy. She tolerated the procedure well returns today for review of the pathology. A copy of the report was provided to the patient. Routine follow-up is recommended occluding annual mammography. She should follow up as needed.\ Coding Level of Care Code Est Pt Level 3 (91846) Diagnoses Abnormal mammogram of left breast R92.8
[2024-11-14 09:47] VITALS: BMI 26.0
== END 2024-11-14 09:53 | disposition home or self-care (01) ==
LOC: HO.HGS 09:20
PROVIDERS: PCP Internal Medicine; Visit Provider Surgery
DX: R92.8 Other abnormal and inconclusive findings on diagnostic imaging of breast (principal)
CPT/HCPCS: 99213

== ENCOUNTER → 2024-11-14 09:19 | Outpatient (BNVA) | payer MEDICAID, SELFPAY | PROVIDERS: PCP Internal Medicine; Visit Provider Surgery | DX: R92.8 Other abnormal and inconclusive findings on diagnostic imaging of breast (principal) | CPT/HCPCS: 99212 ==

== ENCOUNTER 2025-01-06 14:49 | Outpatient (AMB) | payer MEDICAID, SELFPAY ==
[2025-01-06 15:24] VITALS: BMI 26.3
--- NOTE | 2025-01-06 15:24 | A.OFFVIS_ITS ---
Vital Signs 01/06/25 15:24 Height 5 ft 6 in Weight 163 lb BMI 26.3 Intake Visit Reasons: 3rd Gardisil Allergies No Known Allergies Allergy (Verified 11/06/24 08:34) PFSH Medical History Abnormal Pap smear of cervix Surgical History H/O gastric sleeve Hx of tubal ligation Family History Family/Other Colon cancer Mother Colon cancer, Onset Age: 32 Maternal Grandmother Throat cancer Eye cancer Social History Household Members: Children Housing: Apartment Alcohol intake: never Patient Tobacco Use Status: Never used Tobacco Sexual orientation: Straight/Heterosexual Gender identity: Female Physical Exam Vital Signs: BMI result Body Mass Index 26.3 Immunizations Gardasil 9 (PF) 0.5 mL intramuscular suspension Performing Provider: Reyna Vasquez CNM Performing Location: [facility] [place] [facility] Administered by: Vonnie Garcia LPN on 01/06/25 15:25 Dose Route Admin Location Dispensed Lot Number Expiration Date [facility] Optical Laboratory Mechanic 0.5 mL IM Left Deltoid 0.5 mL [id number] 10/23/25 1218-8132-23 [employer] D VIS Given Date VIS Provided VIS Publication Date 01/06/25 Single Vaccine 21 Eligibility Eligibility Date Funding Source Not [facility] Eligible 01/06/25 Private Assessment & Plan Assessment & Plan Plan Pt is here for her 3rd Gardasil injection. Pt tolerated well . No c/o. Pt was advised to remain in office for 15 minutes post inj. This informeation was assisted by Marina, ID#[id number] Orders: Orders Human Papillomavirus Immunization Today Z23 - Encounter for immunization Coding Level of Care Code Established Pt Est Pt Level 1 (22907) Patient Type Established Medical Decision Making Straight Forward Time Spent (min) 20
--- NOTE | 2025-01-06 15:36 | AM.OFFVISNUR ---
Vital Signs 01/06/25 15:24 Height 5 ft 6 in Weight 163 lb BMI 26.3 Intake Visit Reasons: 3rd Gardisil Allergies No Known Allergies Allergy (Verified 11/06/24 08:34) Nursing Note Pt is here today for her scheduled 3rd Gardasil inj. via Sp educational sign language interpreter Debra ID#[id number]. Pt tolerated well, she was informed to wait 15 minutes post inj in waiting room. Pt verbs understanding. Immunizations Gardasil 9 (PF) 0.5 mL intramuscular suspension Performing Provider: Reyna Vasquez CNM Performing Location: [facility] [place] [facility] Administered by: Vonnie Garcia LPN on 01/06/25 15:25 Dose Route Admin Location Dispensed Lot Number Expiration Date [facility] Metal Burnisher 0.5 mL IM Left Deltoid 0.5 mL [id number] 10/23/25 9505-8216-18 [employer] D VIS Given Date VIS Provided VIS Publication Date 01/06/25 Single Vaccine 21 Eligibility Eligibility Date Funding Source Not [facility] Eligible 01/06/25 Private Assessment & Plan Assessment & Plan Orders: Orders Human Papillomavirus Immunization Today Z23 - Encounter for immunization Coding Level of Care Code Established Pt Est Pt Level 1 (72050) Patient Type Established History Problem Focused Exam Problem Focused Medical Decision Making Straight Forward Time Spent (min) 20
--- OUTSIDE RECORDS SUMMARY | 2025-01-06 15:54 | XMS_ITS | Encounter Summary ---
Author Organization [employer] Address [address] [facility] 7t [place] [address] Care Team Providers Care Structural Steel Worker Name Role Phone Genna Jones MD Primary Care Provider + Encounter Details Date Type Department Care Team (Late st Contact Info) Description 07/11/2024 Orders Only [facility] MEDICINE [address] [place], [place] [phone] Genna Jones MD [address] [place], [place] [phone] Social History Tobacco Use Types Packs/Day Years [...] as of this encounter Plan of Treatment Upcoming Encounters Date Type Department Care Team (Late st Contact Info) Description 03/17/2025 3:15 PM EDT Office Visit [facility] MEDICINE [address] [place] [address] Genna Jones MD [address] [place] [phone] documented as of this encounter Visit Diagnoses Not on filedocumented in this encounter Additional Health Concerns Assessment Noted Time PHQ-9 Depression Total Score: 6 12/09/19 23 9:21 AM EDT documented as of this encounter Care Teams Structural Steel Worker Relationship Specialty Start Date End Date Genna Jones MD [address] [place] [phone] PCP - General Family Medicine 09/25/18 documented as of this encounter
--- OUTSIDE RECORDS SUMMARY | 2025-01-06 15:54 | XMS_ITS | Encounter Summary ---
Author Organization [employer] Address [address] [facility] 7t [place] [address] Care Team Providers Care Fur Polisher Name Role Phone Genna Jones MD Primary Care Provider + Reason for Visit * Reason Onset Date Comments Appointment Request 08/13/2023 Encounter Details Date Type Department Care Team ([facility] st Contact Info) Description 08/13/2023 Telephone [facility] MEDICINE [address] [place], [place] [phone] Genna Jones MD [address] [place], [place] [phone] Appointment Request Social History Tobacco Use Types [...] Description 03/17/2025 3:15 PM EDT Office Visit [facility] MEDICINE [address] [place] [address] Genna Jones MD [address] [place] [address] documented as of this encounter Visit Diagnoses Not on filedocumented in this encounter Additional Health Concerns Assessment Noted Time PHQ-9 Depression Total Score: 6 12/09/19 23 9:21 AM EDT documented as of this encounter Care Teams Fur Polisher Relationship Specialty Start Date End Date Genna Jones MD [address] [place] [address] PCP - General Family Medicine 09/25/18 documented as of this encounter
--- OUTSIDE RECORDS SUMMARY | 2025-01-06 15:54 | XMS_ITS | Clinical Summary ---
Author Organization [facility] Address [address] [place] [address] Care Team Providers Care Truck Body Repairer Name Role Phone Unavailable Primary Care Provider Unavailabl e Source Comments PLEASE NOTE, if this patient is a minor, it may be UNLAWFUL to discuss sensitive information that is contained in these records (such as FAMILY PLANNING, MENTAL HEALTH or SUBSTANCE ABUSE) with the minor patient's parent or other person without the patient's specific authorization.[facility] Immunizations Immunization Administration Dates Next Due PFIZER COVID VACCINE, [...] Health Maintenance Due Date Last Done Comments Anxiety Screening 1984 Diabetes Screening 1984 HPV Screening 1984 Hepatitis C Screening 1984 Lipid Screening 1984 Pap + HPV 1984 Tobacco Screening 1984 HIV Screening 1999 Relationship Safety Screening/Counseling 1999 Hypertension Screening (#1) 2002 Imm-Hepatitis B (1 of 3 - 19 + 3-dose series) 2003 Cervical Cancer Screening 2005 Pap Smear 2005 [id number] (2023- season) 2024 021, 12/28/2020 Imm-Influenza (#1) 2024 09/28/2020, 06/06/2016 Breast Cancer Screening (Mammogram) 2024 Alcohol and Drug Screen 08/27/2024 Depression Annual Screen 08/27/2024 Imm-DTaP/Tdap/Td (3 - Td or Tdap) 09/28/2030 021, 04/16/2020 Cervical Ablation/Cold-Knife Conization Discontinued Cervical Cryotherapy Discontinued Colposcopy Discontinued Endometrial Biopsy Discontinued Excision/Leep Discontinued HPV Genotyping Discontinued Vaginal Pap Discontinued Vulvoscopy Discontinued Insurance HNE ([facility]) Member Subscriber Plan / Payer (Ef fective 2019-Present) Name:Madison Sethi Relation to Subscriber:Self Name:Madison Sethi Payer ID:[id number] Group ID:Not on file Type:Maya Address: [address] [place] [id number]
--- OUTSIDE RECORDS SUMMARY | 2025-01-06 15:54 | XMS_ITS | Continuity of Care Document ---
Author Organization [facility] Address [address] [place] [address] Phone Care Team Providers Care Orthopedic Designer Name Role Phone Elder COLLINS, Brett Unavailable Unavailable Advance Directives Directive Yes / No Effective Date File Name No Information Encounters Encounter Description Practice Location Reason(s) For Visit Diagnoses Date Provider Providers Copied on Encounter [facility], [address], [place], [id number], [place] tel:[phone] [facility] No Information [facility]. [address], [place], [address], [place]. tel:[phone] Referring Provider: Genna Jones MD, [address] [facility] [facility] [address], [place], [address]. tel:[phone] Family History Family Member Type Diagnosis Age At Onset No Information Payers Payer name Insurance type Covered democrat ID Authoriza tion(s) No Information Social History Type Description Quantity Date Captured Comments Sex Female Smoking Status No Information Chief Complaint And Reason For Visit No Information Reason For Referral Reason For Referral No Information Plan Of Treatment Date Type Action Status Appointment Madison Sethi BOOKED Appointment Madison Sethi BOOKED History Of Present Illness Encounter Date Complaint History Of Prese nt Illness No Information Functional Status Date Functional Assessmen t No Information Instructions Date Instruction Additional Infor mation No Information Assessments Type Assessment Date No Information Patient Care Teams Name Effective Dates (start - stop) Status Members No Information
--- OUTSIDE RECORDS SUMMARY | 2025-01-06 15:54 | XMS_ITS | Clinical Summary ---
Author Organization [address] [place] [address] Address [address] [place] [address] Phone Care Team Providers Care Door To Door Selling Agent Name Role Phone Genna Jones MD Primary [...] of 30.0 to 30.9 in adult 07/21/2024 Immunizations Name Administration Dates Next Due Pfizer [...] PM EDT Office Visit [facility] [place] [address] [place] [address] José Luis Elliott MD [address] [facility] [address] [place] [address] Health Maintenance Due Date Last Done Comments [...] age to complete this topic Meningococcal B Vaccine Aged Out No l onger eligible based on patient's age to complete [...] Procedure Name Priority Date/Time Associated Diagnosis Comments LIPID PANEL Routine 04/18/2023 PAP SMEAR Routine 02/22/2023 HEPATITIS C SCREENING Routine 12/08/2022 HIV SCREENING Routine 12/08/2022 from Last 3 Months or Most Recently Relevant to Health Maintenance Results * (ABNORMAL) Lipid panel (04/18/2023) Pathologist [facility] LDL/HDL Ratio 4 0 - 4 Triglycerides 77 0 - 150 mg/dL Cholesterol 208(A) 0 - 200 mg/dL HDL 52 >=40 mg/dL LDL Cholesterol 141(A) 0 - 100 mg/dL Blood Venous blood specimen / Unknown Historical Provider LAB BLOOD ORDERABLES Mabel l Result * Pap Smear (02/22/2023) Pathologist [facility] Pap smear no interpretation , abstracted Historical Provider HEALTH MAINTENANCE Final Result * HIV Screening (12/08/2022) Pathologist [facility] HIV Screening abstracted Historical Provider HEALTH MAINTENANCE Final Result * Hepatitis C Screening (12/08/2022) Hepatitis C Screening Abstracted us Historical Provider HEALTH MAINTENANCE Final Result from Last 3 Months or Most Recently Relevant to Health Maintenance Insurance MEDICAID - [place] Care Teams Door To Door Selling Agent Relationship Specialty Start Date End Date Genna Jones MD [address] [place] [phone] PCP - General 01/29/23
--- OUTSIDE RECORDS SUMMARY | 2025-01-06 15:54 | XMS_ITS | Encounter Summary ---
Author Organization [employer] Address [address] 7[address] [place] [address] Care Team Providers Care Plastic Battery Assembler Name Role Phone Genna Jones MD Primary Care Provider + Reason for Visit * Reason Onset Date Comments Hospital Follow-up 08/24/2023 Encounter Details Date Type Department Care Team ([facility] st Contact Info) Description 08/24/2023 Telephone [facility] MEDICINE [address] [place], [place] [phone] Genna Jones MD [address] [place], [place] [phone] Hospital Follow-up Social History Tobacco Use Types [...] pt requesting a HDF appt. Hospital: [facility] Date of admission: 08/08 Discharge date: 08/10 Diagnosed: bariatric surgery documented in this encounter Plan of Treatment Upcoming Encounters Date Type Department Care Team (Late st Contact Info) Description 03/17/2025 3:15 PM EDT Office Visit [facility] MEDICINE [address] [place] [address] Genna Jones MD [address] [place] [address] documented as of this encounter Visit Diagnoses Not on filedocumented in this encounter Additional Health Concerns Assessment Noted Time PHQ-9 Depression Total Score: 6 12/09/19 23 9:21 AM EDT documented as of this encounter Care Teams Plastic Battery Assembler Relationship Specialty Start Date End Date Genna Jones MD [address] [place] [address] PCP - General Family Medicine 09/25/18 documented as of this encounter
--- OUTSIDE RECORDS SUMMARY | 2025-01-06 15:54 | XMS_ITS | Encounter Summary ---
Author Organization [employer] Address [address] [facility] [address] [place] [address] Care Team Providers Care Electric Crane Operator Name Role Phone Genna Jones MD Primary Care Provider + Reason for Visit * Reason Onset Date Comments Nurse Triage 07/09/2023 Encounter Details Date Type Department Care Team (Late st Contact Info) Description 07/09/2023 Telephone [facility] MEDICINE [address] [place], [place] [phone] Genna Jones MD [address] [place], [place] [phone] Nurse Triage Social History Tobacco Use Types [...] 07/09/2023 3:16 PM EST Triage call with Your Policy Manager Licensed Nuclear Control Room Operator ID [id number] Pt reports chronic constipation. Last BM was [...] be seen - You become worse * [id number] * Step 1 - Fiber Laxatives, Every [...] accepted this outcome Please contact pt at [phone] Khmer Speaker documented in this encounter Plan of Treatment Upcoming Encounters Date Type Department Care Team (Late st Contact Info) Description 03/17/2025 3:15 PM EDT Office Visit [facility] MEDICINE [address] [place] [address] Genna Jones MD [address] [place] [address] documented as of this encounter Visit Diagnoses Not on filedocumented in this encounter Additional Health Concerns Assessment Noted Time PHQ-9 Depression Total Score: 6 12/09/19 23 9:21 AM EDT documented as of this encounter Care Teams Electric Crane Operator Relationship Specialty Start Date End Date Genna Jones MD [address] [place] [address] PCP - General Family Medicine 09/25/18 documented as of this encounter
--- OUTSIDE RECORDS SUMMARY | 2025-01-06 15:54 | XMS_ITS | Encounter Summary ---
Author Organization [employer] Address [address] [facility] 7 [place] [address] Care Team Providers Care Library Circulation Assistant Name Role Phone Genna Jones MD Primary Care Provider + Encounter Details Date Type Department Care Team ([facility] Contact Info) Description 01/23/2023 [facility] Local Lift Information Management [address] [place], [place] [phone] Genna Jones MD [address] [place] [address] Social History Tobacco Use Types Packs/Day Years [...] Upcoming Encounters Date Type Department Care Team ([facility] Contact Info) Description 03/17/2025 3:15 PM EDT Office Visit [facility] MEDICINE [address] [place] [address] Genna Jones MD [address] [place] [address] documented as of this encounter Visit Diagnoses Not on filedocumented in this encounter Additional Health Concerns Assessment Noted Time PHQ-9 Depression Total Score: 6 12/09/19 23 9:21 AM EDT documented as of this encounter Care Teams Library Circulation Assistant Relationship Specialty Start Date End Date Genna Jones MD [address] [place] [address] PCP - General Family Medicine 09/25/18 documented as of this encounter
--- OUTSIDE RECORDS SUMMARY | 2025-01-06 15:54 | XMS_ITS | Clinical Summary ---
Author Organization [employer] Address [address] [facility] [address] [place] [address] Care Team Providers Care Vamp Marker Name Role Phone Genna Jones MD Primary [...] series today, declined Covid booster. FU with [facility] re HPV #3 Dental visit: UTD, next [...] syphilis? Chlamydia? I will order RPR. Contact [facility] for genital exam, PAP is due on [...] adult 09/25/2018 05/15/2024 Overview (10/22/2022): -Following with [facility], although appears difficulty getting approved through [...] weight reduction program, she is going to [facility] program. Discussed re weight reduction options including exercise, life style modifications, diet, referral to web design specialist. Discussed re lower calorie intake, increase dietary fiber Will consider metformin or other parenteral medications for weight reduction if bariatric surgery not approved. Assessment & Plan (10/22/2022 8:36 PM EST): -Will fax over today's office visit with further list of conditions Encounters Date Type Department Care Team Description 11/19/2024 Telephone [facility] [address] [place] [address] Genna Jones MD January recall 11/07/2024 Population Health Risk Score [facility] Department [address] [address] Provider, Population Health Generic 11/06/2024 Orders Only [facility] External Provider, [facility] from Last 3 Months Immunizations Name Administration [...] with others, in a hotel, in a fdc, living outside on the street, on a [...] 08/25/2024 2:28 PM EST Plan of Treatment Upcoming Encounters Date Type Department Care Team (Late st Contact Info) Description 03/17/2025 3:15 PM EDT Office Visit [facility] [address] [place] [address] Genna Jones MD [address] [place] [address] Health Maintenance Due Date Last Done Comments Alcohol/Substance Use Screening 1996 Family Planning (PISQ) 1999 Depression Screening 12/09/2023 12/08/2022, 04/14/20 23 COVID-19 Vaccine ( season) 2024 07/29/2021, 01/19/2021, 12/28/2020 Hepatitis B Vaccines (2 of 3 - 19+ 3-dose series) 09/22/2024 08/25/2024 HPV Vaccines (3 - 3-dose SCDM series) 11/16/2024 07/22/2024, 05/19/2024 Diabetes: Hemoglobin A1C 05/15/2025 024, 12/08/2022, 05/30/2021, Additional history exists SDOH Screening 08/14/2025 08/14/2024 Tobacco Screening 08/25/2025 08/25/2024 Mammogram 09/30/2025 09/30/2024, 09/12/2024 Pap Smear 05/08/2027 05/08/2024, 01/26, 02/22/2023 Cervical [...] Name Priority Date/Time Associated Diagnosis Comments BI STEREOTACTIC GUIDED BREAST LOCALIZATION AND BIOPSY LEFT Routine 11/06/2024 10:00 AM EDT HEMATOXYLIN AND EOSIN STAIN Routine 11/06/2024 9:42 AM EDT BI MAMMOGRAM ADDITIONAL VIEWS LEFT Routine 09/30/2024 12:15 PM EST HEPATITIS PANEL, GENERAL Routine 06/02/2024 9:33 AM [...] Relevant to Health Maintenance Results * BI Sterotactic Guided Breast Localization and Biopsy Left (11/06/2024 10:00 AM EDT) Anatomical Region Laterality Modality Breast Left Mammography 11/06/2024 10:0 0 AM EDT Narrative 11/06/2024 11:01 AM EDT ? [facility] [place] ? [address] ?[place] [address] ? Mammography Report ? Signed with Addenda ? Patient: Sethi,Madison ?MR#: [id number] ?? 8 ? : 1985 ?Acct:[id number] ? Age/Sex: 39 / F ?ADM Date: 03/13/25 ? Loc: HO.MAMMO ? Attending Dr: Librado Bronson MD ? Ordering Physician: Librado Bronson MD ?Results: ? Date of Service: 11/06/24 ?Follow Up: ? Procedure(s): MM stereotactic biopsy LT ?? Accession Number(s): [id number] ? cc: Genna Jones MD; Librado Bronson MD ?ADDENDUM ? ADDENDUM #1 ? Left breast biopsy: Breast tissue with sclerosing adenosis, fibrocystic ?? changes, calcifications and usual ductal hyperplasia: No atypia or ?? malignancy identified. ?? Results are benign and concordant. Recommend return to annual screening. ? Electronically signed by: ??yN Matos DO ??11/10/2024 02:02 PM EDT ?? RP ? Addendum Dictated By: ?Ny Matos, DO ? Addendum Signed By: ? <Electronically signed by Ny Matos, DO in OV> ? 11/10/24 1402 ?? Addendum Cosigned By: ? DD/DT: / ? TD/TT: / ? EXAMINATION: ?? STEREOTACTICALLY-GUIDED LEFT BREAST BIOPSY ? CLINICAL INFORMATION: ?? Grouped calcifications in the upper outer left breast posterior depth ?? on baseline mammogram. ? COMPARISON: ?? Available priors on PACS. ? INFORMED CONSENT: ?? After the details of the procedure, as well as the risks (including, ?? but not limited to, bleeding, hematoma formation, and infection), ?? benefits and alternatives (including doing nothing, short-interval ?? follow up, and surgery) to the procedure were explained to the patient ?? in detail and all of her questions were answered, informed written ?? consent was obtained. ? TECHNIQUE/FINDINGS: ?? A timeout was performed. The lesion intended for biopsy was identified ?? stereotactically and targeted. The skin of the left breast was then ?? cleansed with sterile solution. Using stereotactic guidance, aseptic ?? technique, and 1% lidocaine with and without epinephrine for local ?? anesthesia, a total of 12 cores were obtained through the targeted area ?? with a 9-gauge vacuum-assisted Eviva core biopsy device from a superior ?? approach. Specimen radiography reveals the targeted calcifications in ?? the sampled tissue. At the completion of tissue sampling, a single ?? cork-shaped metallic clip was deposited at the biopsy site. ? Adequate sampling was achieved. ? The postprocedure 2-view direct digital mammogram reveals satisfactory ?? positioning of the biopsy clip. ? The patient tolerated the procedure well and, after assuring adequate ?? hemostasis, was discharged in good condition after reviewing postbiopsy ?? breast care instructions. Final pathology results are pending. ? MM/MM stereotactic biopsy LT ?? IMPRESSION: ?? 1. Uncomplicated stereotactically-guided core biopsy of the left ?? breast. The 2-view direct digital postprocedure mammogram reveals ?? satisfactory positioning of the biopsy clip. ?? 2. Final pathology results are pending. A separate report with final ?? recommendations will be issued once these results are made available. ? Electronically signed by: ??Ny Matos DO ??11/06/2024 10:58 AM EDT ?? RP ? Dictated By: ?Ny Matos DO ? Signed By: ?<Electronically signed by Ny Matos, DO in OV> ? 11/06/ 1058 ? DD/ 1000 ? TD/TT: ? Control And Recovery Special Tactics: ? Procedure Note Donato, Image - 11/10/2024 [facility] [address] [place] [address] Mammography Report Signed with Addenda Patient: Michael Sethi#: [id number] 8 : 1985Acct:[id number] Age/Sex: 39 / FADM Date: 11/06/24 Loc: HO.MAMMO Attending Dr: Librado Bronson MD Ordering Physician: Librado Bronsonesults: Date of Service: 11/06/24Follow Up: Procedure(s): MM stereotactic biopsy LT Accession Number(s): [id number] cc: Genna Jones MD; Librado Bronson MD ADDENDUM ADDENDUM #1 Left breast biopsy: Breast tissue with sclerosing adenosis, fibrocystic changes, calcifications and usual ductal hyperplasia: No atypia or malignancy identified. Results are benign and concordant. Recommend return to annual screening. Electronically signed by: Ny Matos DO 11/10/2024 02:02 PM EDT RP Addendum Dictated By: Ny Matos DO Addendum Signed By: <Electronically signed by DO Beth in OV> 11/10/24 1402 Addendum Cosigned By: DD/ TD/TT: / EXAMINATION: STEREOTACTICALLY-GUIDED LEFT BREAST BIOPSY CLINICAL INFORMATION: Grouped calcifications in the upper outer left breast posterior depth on baseline mammogram. COMPARISON: Available priors on PACS. INFORMED CONSENT: After the details of the procedure, as well as the risks (including, but not limited to, bleeding, hematoma formation, and infection), benefits and alternatives (including doing nothing, short-interval follow up, and surgery) to the procedure were explained to the patient in detail and all of her questions were answered, informed written consent was obtained. TECHNIQUE/FINDINGS: A timeout was performed. The lesion intended for biopsy was identified stereotactically and targeted. The skin of the left breast was then cleansed with sterile solution. Using stereotactic guidance, aseptic technique, and 1% lidocaine with and without epinephrine for local anesthesia, a total of 12 cores were obtained through the targeted area with a 9-gauge vacuum-assisted Eviva core biopsy device from a superior approach. Specimen radiography reveals the targeted calcifications in the sampled tissue. At the completion of tissue sampling, a single cork-shaped metallic clip was deposited at the biopsy site. Adequate sampling was achieved. The postprocedure 2-view direct digital mammogram reveals satisfactory positioning of the biopsy clip. The patient tolerated the procedure well and, after assuring adequate hemostasis, was discharged in good condition after reviewing postbiopsy breast care instructions. Final pathology results are pending. MM/MM stereotactic biopsy LT IMPRESSION: 1. Uncomplicated stereotactically-guided core biopsy of the left breast. The 2-view direct digital postprocedure mammogram reveals satisfactory positioning of the biopsy clip. 2. Final pathology results are pending. A separate report with final recommendations will be issued once these results are made available. Electronically signed by: Ny Matos DO 11/06/2024 10:58 AM EDT Dictated By: Ny Matos DO Signed By: <Electronically signed by Ny Matos DO in OV> 11/06/24 1058 DD/ 1000 TD/TT: Control And Recovery Special Tactics: [facility] External Provider IMG BI PROCEDURES Edited Result - Final * Hematoxylin and Eosin Stain (11/06/2024 9:42 AM EDT) 11/06/2024 9:42 AM EDT 11/06/2024 11:02 AM EDT [facility] - 11/07/2024 4:17 PM EDT ----- ------- Name: Madison Sethi ?Age/Sex: 39/F ? : 1985 Unit#: [id number] ?? Attend Dr: Librado Bronson MD ?Re11/06/24 ?Status: DEP REF ? Location: HO.MAMMO ?Disch: ? ----- ------- SPEC : [id number] ? RECD: 11/06/24-1102 ? STATUS: ??SOUT ? REQ NUM: [id number] ? JUAN: 11/06/24-941 ? SUBM DR: Ny Matos DO ? ENTERED: ??11/06/24-1120 ?SP TYPE: Surgical ? OTHR DR: Genna Jones MD ?Librado Bronson MD ORDERED: ??HE Stain/3, Gross Micro L4/2 ? COMMENTS: As per the specimen requisition slip the specimen is ?collected at 0942 and placed in formalin at 0946. ? Diagnosis ?? Breast, left, biopsy: ??Breast tissue with sclerosing adenosis, fibrocystic changes, ?? calcifications and usual ductal hyperplasia; no atypia or malignancy identified. ? Comment: Please correlate with clinical and imaging findings to ensure adequate sampling. ?Clinical History Left breast stereotactic bx for microcalcifications ?Microscopic Description Microscopic sections reviewed. ? Material Received ?? Left breast stereotactic bx with clip placement ? Gross Description Received in formalin labeled left breast stereo bx? isolated in a pink tissue are multiple huggins-pink and morrow-yellow irregular and cylindrical portions of fibrofatty breast tissue ranging from 0.5-2.0 cm and aggregating 2.5 x 2.0 x 0.3-0.4 cm, submitted in toto in cassette A1. ??Also received wrapped in Telfa are multiple similar huggins-white and morrow- yellow irregular and cylindrical portions of fibrofatty breast tissue ranging from 0.6 to 2.0 cm in greatest dimension and aggregating 2.5 x 2.5 x 0.45 cm, submitted in toto in cassette A2. ??CEDS This case was reviewed intradepartmentally. Copies To: ?? Genna Jones MD ?? [facility] ?? [address] [place] [address] ?? [place] [address] ?? [phone] ? CONTINUED ON NEXT PAGE ----- ------- Name: Madison Sethi ?Age/Sex: 39/F ? : 1985 Unit#: [id number] ?? Attend Dr: Librado Bronson MD ?Re11/06/24 ?Status: DEP REF ? Location: HO.MAMMO ?Disch: ? ----- ------- SPEC : [id number] ? RECD: 11/06/24-1101 ? STATUS: ??SOUT ? REQ NUM: [id number] ? JUAN: 11/06/24-941 ? SUBM DR: Ny Matos DO ? ENTERED: ??11/06/24-1120 ?SP TYPE: Surgical ? OTHR DR: Genna Jones MD ?Librado Bronson MD ORDERED: ??HE Stain/3, Gross Micro L4/2 ? COMMENTS: As per the specimen requisition slip the specimen is ?collected at 0942 and placed in formalin at 0946. Copies To: ??(Continued) ?? Librado Bronson MD ?? [facility] ?? [address] ?? [place] [address] ?? [phone] ?? Ny Matos DO ?? [address] ?? [place] [address] ?? [phone] ----- ------- Signed (signature on file) Obi Rayo MD 11/07/241616 ? ----- ------- ? END OF REPORT ? us Generic External Data Provider LAB BLOOD ORDERAB LES Final Result [facility] [address] [place] [address] [phone] * Left mammogram, additional views (09/30/2024 12:15 PM EST) Anatomical Region Laterality Modality Breast Left Mammography 09/30/2024 12:1 5 PM EST Narrative 09/30/2024 1:55 PM EST ? [facility] ? [address] ?[place] [address] ? Mammography Report ? Signed ? Patient: Jossie,Madison ?MR#: [id number] ?? 8 ? : 1985 ?Acct:[id number] ? Age/Sex: 39 / F ?ADM Date: 09/30/24 ? Loc: HO.MAMMO ? Attending Dr: Genna Jones MD ? Ordering Physician: Genna Jones MD ?Results: 4Su ?? spicious Finding ? Date of Service: 09/30/24 ?Follow Up: Biopsy Recommend ?? ed ? Procedure(s): MM added views LT ?? Accession Number(s): [id number] ? cc: Genna Jones MD ? EXAMINATION: [...] ??Ny Matos DO ??09/30/2024 01:52 PM EST ?? RP ? Dictated By: ?Ny Matos DO ? Signed By: ?<Electronically signed by Ny Matos DO in OV> ? 09/30/24 1352 ? DD/ 1215 ? TD/TT: 09/30/24 1230 ? Control And Recovery Special Tactics: ? Procedure Note Donato, Image - 09/30/2024 [facility] [address] [place] [address] Mammography Report Signed Patient: Michael Sethi#: [id number] 8 : 1985Acct:[id number] Age/Sex: 39 / FADM Date: 09/30/24 Loc: HO.MAMMO Attending Dr: Genna Jones MD Ordering Physician: Genna Jonesesults: 4Su spicious Finding Date of Service: 09/30/24Follow Up: Biopsy Recommend ed Procedure(s): MM added views LT Accession Number(s): [id number] cc: Genna Jones MD EXAMINATION: MM DIAGNOSTIC [...] Ny Matos DO 09/30/2024 01:52 PM EST Dictated By: Ny Matos DO Signed By: <Electronically signed by Ny Matos DO in OV> 09/30/24 1352 DD/ 1215 TD/TT: 09/30/24 1230 Control And Recovery Special Tactics: us Genna Jones MD IMG BI PROCEDURES Final Result * (ABNORMAL) Lipid Panel with Reflex to Direct LDL (06/02/2024 9:33 AM EDT) Triglycerides 68 <150 mg/dL [facility] Comment:Desirable Triglyceri de: less than 150 mg/dLBorderline High Triglyceride 150-199 mg/dLHigh Triglyceride: 200-499 mg/dLVery High Triglyceride: greater than or equal to 5OO mg/dL Cholesterol 209(H) <200 mg/dL [facility] Comment:Desirable Cholestero l: less than 200 mg/dLBorderline High Cholesterol: 200-239 mg/dLHigh Cholesterol: greater than 239 mg/dL LDL Cholesterol Calculated 141(H) <100 mg/dL [facility] Comment:Desirable LDL: less than 100 mg/dLNear Optimal/Above Optimal LDL: 110- 129 mg/dLBorderline High LDL: 130-159 mg/dLHigh LDL: 160-189 mg/dLVery High LDL: greater than or equal to 190 mg/dL HDL Cholesterol 55 >40 mg/dL [facility] Comment:Desirable HDL: great er than 40 mg/dL Note: This HDL assay may give artificially low results in patients with liver disease. Blood 06/02/2024 9:33 AM EDT 06/02/2024 11:15 AM EDT Genna Jones MD LAB BLOOD ORDERABLES Fin al Result Performing Organization Address [facility] Co de Phone Number [facility] [address] [place] [address] [phone] * Hepatitis Panel, General (06/02/2024 9:33 AM EDT) Hepatitis A IgM Nonreactive Nonreactive [facility] Comment:IgM antibodies to BRAY V not detected; does not exclude earlyacute or recovered HAV infection. ~Hepatitis B Surface Antibody NONREACTIVE Nonreactive [facility] Comment:Nonreactive: < 8.00 mIU/mL Hepatitis B Core Antibody Nonreactive Nonreactive [facility] Hepatitis C Antibody Nonreactive Nonreactive [facility] Comment:Antibodies to HCV no t detected; does not exclude early acuteHCV infection. Hepatitis B Surface Ag Negative Negative [facility] Blood 06/02/2024 9:33 AM EDT 06/02/2024 11:15 AM EDT Genna Jones MD LAB BLOOD ORDERABLES Fin al Result Performing Organization Address [facility] de Phone Number [facility] [address] [place] [address] [phone] * POCT HGB A1C (05/15/2024 9:13 AM EDT) Hemoglobin A1C 5.6 4.0 - 6.0 % QC Media Lot # [id number] Lot# Expiration Date [id number] Blood 05/15/2024 9:13 AM EDT Genna Jones MD POINT OF CARE TEST ENTER /EDIT ORDERABLES Final Result * ThinPrep Imaging Pap and HPV mRNA E6/E7 with Reflex to HPV 16,18/45 (05/08/2024 2:18 PM EDT) HPV 16 RNA [facility] HPV 18/45 RNA [facility] HPV nRNA E6/E7 Not Detected Not Detected [facility] Comment:Methodology: Transcr iption-Mediated AmplificationThis assay detects E6/E7 viral messenger RNA (mRNA) from 14high-risk HPV types (16,18,31,33,35,39,45,51,52,56,58,59,66,68).Cervical sources are required for HPV testing.If a vaginal source from a patient who has had atotal hysterectomy with removal of cervix wassubmitted, please contact the testing laboratoryfor alternative testing options.For additional information, please refer tohttp://education.SmartCloud/faq/ADB123o8(This link if provided for information/educational purposes only.)THIS TEST WAS PERFORMED AT:[employer] [address] [id number] BANKS MD SOURCE: SEE NOTE [facility] Comment:None given Report Status: [facility] Clinical Information: SEE NOTE [facility] Comment:None given LMP: SEE NOTE [facility] Comment:NONE GIVEN Prev. PAP: SEE NOTE [facility] Comment:NONE GIVEN Prev. BX: SEE NOTE [facility] Comment:NONE GIVEN Statement Of Adequacy: SEE NOTE [facility] Comment:Satisfactory for nicol luation.Endocervical/transformation zone componentpresent. General Categorization: [facility] Interpretation/Result: SEE NOTE [facility] Comment:Cytology Results: Ne gative for intraepitheliallesion or malignancy. Cytology Comment SEE NOTE [facility] Comment:This Pap test has be en evaluated with computerassisted technology. Web Press Jogger: SEE NOTE [facility] Comment:KF, CT(ASCP)CT scree rashad location: [place] [address] Review Web Press Jogger: SEE NOTE [facility] Comment:MPG, CT(ASCP)CT scre ening location: [address] [address] Pathologist TNP [facility] PAP Infection TNP [facility] See Note SEE NOTE [facility] Comment:EXPLANATORY NOTE:The Pap is a screening test for cervical cancer. It isnot a diagnostic test and is subject to false negativeand false positive results. It is most reliable when asatisfactory sample, regularly obtained, is submittedwith relevant clinical findings and history, and whenthe Pap result is evaluated along with historic andcurrent clinical information. 05/08/2024 2:18 PM EDT 05/08/2024 3:57 PM EDT Narrative [facility] - 05/13/2024 3:15 PM EDT SEE SCANNED RESULTS IN EMR us Generic External Data Provider LAB PATHOLOGY ORD ERABLES Final Result [facility] [address] [place] [address] [phone] * HIV-1/2 Antigen and Antibodies, Fourth Generation, with Reflexes (12/08/2022 9:54 AM EDT) HIV Antigen/Antibody, 4th Generation NON-REAC TIVE NON-REAC TIVE [facility] Comment: HIV-1 antigen and HIV-1/HIV-2 antibodies [...] ?? For additional information please refer to http://education.[employer] ( [employer] ).[employer] 2000/faq/HRX819 (This link is being provided for informational/ educational purposes only.) The performance of this assay has not been clinically validated in patients less than 2 years old. Blood Venous blood specimen / Unknown 12/08/2022 9:54 AM EDT 12/08/2022 9:55 AM EDT Narrative [facility] - 12/13/2022 11:15 PM EDT FASTING:YES FASTING: YES us Genna Jones MD LAB BLOOD ORDERABLES Fin al Result [facility] [address], [place] [address] [facility] [address] [place] [address] from Last 3 Months or Most Recently Relevant to Health Maintenance Insurance [id number] C3 Care Teams Vamp Marker Relationship Specialty Start Date End Date Genna Jones MD [address] [place] [phone] PCP - General Family Medicine 09/25/18
--- OUTSIDE RECORDS SUMMARY | 2025-01-06 15:54 | XMS_ITS | Encounter Summary ---
Author Organization [employer] Address [address] [facility] 7 [place] [address] Care Team Providers Care Sleeve Ironer Name Role Phone Genna Jones MD Primary Care Provider + Encounter Details Date Type Department Care Team ([facility] Contact Info) Description 01/23/2023 [facility] [employer] [address] [place], [place] [phone] Genna Jones MD [address] [place] [address] Social History Tobacco Use Types Packs/Day Years [...] Upcoming Encounters Date Type Department Care Team ([facility] Contact Info) Description 03/17/2025 3:15 PM EDT Office Visit [facility] [address] [place] [address] Genna Jones MD [address] [place] [address] documented as of this encounter Visit Diagnoses Not on filedocumented in this encounter Additional Health Concerns Assessment Noted Time PHQ-9 Depression Total Score: 6 12/09/19 23 9:21 AM EDT documented as of this encounter Care Teams Sleeve Ironer Relationship Specialty Start Date End Date Genna Jones MD [address] [place] [address] PCP - General Family Medicine 09/25/18 documented as of this encounter
== END 2025-01-06 18:11 ==
LOC: HO.HWS 14:49
PROVIDERS: PCP Internal Medicine; Visit Provider Advanced Practice Midwife
DX: Z23 Encounter for immunization (principal)

== ENCOUNTER → 2025-01-06 14:49 | Outpatient (BNVA) | payer MEDICAID, SELFPAY | PROVIDERS: PCP Internal Medicine; Visit Provider Advanced Practice Midwife | DX: Z23 Encounter for immunization (principal) | CPT/HCPCS: 90471; 90651; 99211 ==

== ENCOUNTER 2025-08-11 16:18 | Outpatient (REF) | payer MEDICAID, SELFPAY ==
--- OUTSIDE RECORDS SUMMARY | 2025-08-11 16:00 | XMS_ITS | Encounter Summary ---
Author Organization [employer] Address [address] [facility] 7t [place] [address] Care Team Providers Care Dye Line Operator Name Role Phone Genna Jones MD Primary Care Provider + Reason for Visit * Reason Comments Vaginal Pain Encounter Details Date Type Department Care Team (Late st Contact Info) Description 08/11/2025 4:00 PM EST Office Visit [facility] [address] [place], [place] [phone] Riri Khan, PEGGY [address] [place], [place] [phone] Vaginal itching; UTI symptoms Social History Tobacco Use Types Packs/Day Years [...] with others, in a hotel, in a correction, living outside on the street, on a [...] AM EDT documented as of this encounter Last Filed Vital Signs Vital Sign Reading Time Taken Comments Blood Pressure 126/73 08/11/2025 3:18 PM EST Pulse 80 08/11/2025 3:18 PM EST Temperature 37.1 C (98.8 F) 08/11/2025 3:18 PM EST Respiratory Rate 18 08/11/2025 3:18 PM EST Oxygen Saturation 99% 08/11/2025 3:18 PM EST Inhaled Oxygen Concentration - - Weight 74.8 kg (165 lb) 08/11/2025 3:18 PM EST Height - - Body Mass Index 26.63 08/25/2024 2:28 PM EST documented in this encounter Plan of Treatment Upcoming Encounters Date Type Department Care Team (Late st Contact Info) Description 09/04/2025 3:00 PM EST Office Visit [facility] [address] [place], [place] [phone] Marlys Durand, WILLAM [address] [place] [address] Scheduled Orders Name Type Priority Associated Diagnoses Orde r Schedule Culture, Urine, Routine Microbiology Routine UTI symptoms Ordered: 08/11/2025 documented as of this encounter Procedures Procedure Name Priority Date/Time Associated Diagnosis Comments POCT URINALYSIS DIPSTICK Routine 08/11/2025 3:40 PM EST Vaginal itching BACTERIAL VAGINOSIS PANEL Routine 08/11/2025 3:21 PM EST Vaginal itching CHLAMYDIA/N. GONORRHOEAE RNA, TMA, UROGENITAL Routine 08/11/2025 3:21 PM EST Vaginal itching documented in this encounter Results * (ABNORMAL) POCT urinalysis dipstick manually resulted (CPT 70859) (08/11/2025 3:40 PM EST) Color, UA Yellow Comment:Dark Clarity, UA Cloudy Glucose, UA Negative Bilirubin, UA Negative Ketones, UA Positive Comment:Trace Spec Grav, UA 1.030 Blood, UA Positive(A) Negative, None Detected Comment:Trace pH, UA 5.5 Protein, UA Trace (15) Urobilinogen, UA 0.2 Leukocytes, UA Few 15(A) Negative, Rare, Trace, 1+ (17), 2+ (35), 3+ (70), Trace (15) Comment:Small Nitrite, UA Positive(A) Negative, None Detected Appearance, UA OK Urine (Urine, Random) 08/11/2025 3:40 PM EST [facility] POINT OF CARE TEST ENTER/EDIT ORDERABLES Final Result * Chlamydia/N. Gonorrhoeae RNA, TMA, Urogenitial (08/11/2025 3:21 PM EST) CT PCR NOT DETECTED Not Detect. [facility] Comment:A not detected test result does [...] psychologicalconsequences. NG PCR NOT DETECTED Not Detect. [facility] Comment:A not detected test result does [...] to adverse medical, social or psychologicalconsequences. Swab (Vaginal Swab) 08/11/2025 3:21 PM EST 08/11/2025 4:19 PM EST Riri Khan [facility] MICROBIOLOGY - GENERAL ORD ERABLES Final Result [facility] [address] [place] [phone] * Bacterial Vaginosis (08/11/2025 3:21 PM EST) TRICHOMONAS VAGINALIS DETECTION BY PCR NOT DETECTED Not Detect [facility] BACTERIAL VAGINOSIS DETECTION BY PCR NEGATIVE Negative [facility] Comment:The BV organism targ ets of [...] DETECTION BY PCR NOT DETECTED Not Detect [facility] Jennifer glab krusei PCR NOT DETECTED Not Detect [facility] Swab Vaginal structure / Unknown 08/11/2025 3:21 PM EST 08/11/2025 4:19 PM EST us Riri Khan [facility] MICROBIOLOGY - GENERAL ORD ERABLES Final Result [facility] [address] [place] [phone] documented in this encounter Visit Diagnoses Diagnosis Vaginal itching Pruritus of genital organs UTI symptoms documented in this encounter Additional Health Concerns Assessment Noted Time PHQ-9 Depression Total Score: 6 12/09/19 23 9:21 AM EDT documented as of this encounter Care Teams Dye Line Operator Relationship Specialty Start Date End Date Genna Jones MD [address] [place] [phone] PCP - General Family Medicine 09/25/18 documented as of this encounter
[2025-08-11 18:08] LABS: Bacterial Vaginosis PCR NEGATIVE (Negative); Candida Group PCR NOT DETECTED (Not Detect); Candida glab krusei PCR NOT DETECTED (Not Detect); Trichomonas vaginalis PCR NOT DETECTED (Not Detect)
[2025-08-11 18:19] LABS: CT PCR NOT DETECTED (Not Detect.); NG PCR NOT DETECTED (Not Detect.)
--- OUTSIDE RECORDS SUMMARY | 2025-08-11 20:12 | XMS_ITS | Encounter Summary ---
Author Organization [employer] Address [address] [place] [address] Care Team Providers Care Graphic Art Technician Name Role Phone Gnena Jones MD Primary Care Provider + Encounter Details Date Type Department Care Team (Latest Contact Info) Description 08/11/2025 Travel Social History Tobacco Use Types Packs/Day Years [...] with others, in a hotel, in a prison, living outside on the street, on a [...] t he electric, gas, oil or water [employer] threatened to shut off services in your [...] Description 09/04/2025 3:00 PM EST Office Visit [facility] [address] [place] [address] Marlys Durand, OD [address] [place] [address] documented as of this encounter Visit Diagnoses Not on filedocumented in this encounter Additional Health Concerns Assessment Noted Time PHQ-9 Depression Total Score: 6 12/09/19 23 9:21 AM EDT documented as of this encounter Care Teams Graphic Art Technician Relationship Specialty Start Date End Date Genna Jones MD [address] [place] [address] PCP - General Family Medicine 09/25/18 documented as of this encounter
--- OUTSIDE RECORDS SUMMARY | 2025-08-11 20:12 | XMS_ITS | Encounter Summary ---
Author Organization [employer] Address [address] [facility] [address] [facility] [facility] [address] [place] [address] Care Team Providers Care Pullboat Engineer Name Role Phone Genna Jones MD Primary Care Provider + Reason for Visit * Reason Onset Date Comments Nurse Triage 07/09/2023 Encounter Details Date Type Department Care Team (Late st Contact Info) Description 07/09/2023 Telephone [facility] [address] [place], [place] [phone] Genna Jones MD [address] [place], [place] [phone] Nurse Triage Social History Tobacco Use Types [...] 07/09/2023 3:16 PM EST Triage call with [employer] Writer [place] [id number] Pt reports chronic constipation. Last BM was [...] be seen - You become worse * Kfpt-Gh-[id number] * Step 1 - Fiber Laxatives, Every [...] You become worse * Telephone Encounter - Fannydamon Aquilino Jones - 07/09/2023 2:44 PM EST Symptom: Pain - Severe Outcome: Schedule an urgent appointment (within 1 hour) or talk to a nurse or provider soon Reason: Caller denied all higher acuity questions The caller accepted this outcome Please contact pt at [phone] Syriac Speaker documented in this encounter Plan of Treatment Upcoming Encounters Date Type Department Care Team ([facility] st Contact Info) Description 09/04/2025 3:00 PM EST Office Visit [facility] [address] [place] [address] Marlys Durand, OD [address] [place] [address] documented as of this encounter Visit Diagnoses Not on filedocumented in this encounter Additional Health Concerns Assessment Noted Time PHQ-9 Depression Total Score: 6 12/09/19 23 9:21 AM EDT documented as of this encounter Care Teams Pullboat Engineer Relationship Specialty Start Date End Date Genna Jones MD [address] [place] [phone] PCP - General Family Medicine 09/25/18 documented as of this encounter
--- OUTSIDE RECORDS SUMMARY | 2025-08-11 20:12 | XMS_ITS | Encounter Summary ---
Author Organization [employer] Address [address] [facility] 7t [place] [address] Care Team Providers Care Paper Tube Cutter Name Role Phone Genna Jones MD Primary Care Provider + Encounter Details Date Type Department Care Team (Late st Contact Info) Description 01/23/2023 [facility] [employer] [facility] [address] [place], [place] [phone] Genna Jones MD [address] [place], [place] [phone] Social History Tobacco Use Types Packs/Day Years [...] Description 09/04/2025 3:00 PM EST Office Visit [facility] [address] [place], [place] [phone] Marlys Durand, OD [address] [place] [address] documented as of this encounter Visit Diagnoses Not on filedocumented in this encounter Additional Health Concerns Assessment Noted Time PHQ-9 Depression Total Score: 6 12/09/19 23 9:21 AM EDT documented as of this encounter Care Teams Paper Tube Cutter Relationship Specialty Start Date End Date Genna Jones MD [address] [place] [address] PCP - General Family Medicine 09/25/18 documented as of this encounter
--- OUTSIDE RECORDS SUMMARY | 2025-08-11 20:12 | XMS_ITS | Encounter Summary ---
Author Organization [employer] Address [address] [address] [facility] [facility] [address] [place] [address] Care Team Providers Care Water Valve Repairer Name Role Phone Genna Jones MD Primary Care Provider + Encounter Details Date Type Department Care Team ([facility] st Contact Info) Description 07/11/2024 Orders Only [facility] [address] [place], [place] [phone] Genna Jones MD [address] [place], [place] [phone] Social History Tobacco Use Types Packs/Day Years [...] Description 09/04/2025 3:00 PM EST Office Visit [facility] [address] [place] [address] Marlys Durand, OD [address] [place] [address] documented as of this encounter Visit Diagnoses Not on filedocumented in this encounter Additional Health Concerns Assessment Noted Time PHQ-9 Depression Total Score: 6 12/09/19 23 9:21 AM EDT documented as of this encounter Care Teams Water Valve Repairer Relationship Specialty Start Date End Date Genna Jones MD [address] [place] [phone] PCP - General Family Medicine 09/25/18 documented as of this encounter
--- OUTSIDE RECORDS SUMMARY | 2025-08-11 20:12 | XMS_ITS | Encounter Summary ---
Author Organization [employer] Address [address] [facility] 7t [place] [address] Care Team Providers Care Air Hammer Operator Name Role Phone Genna Jones MD Primary Care Provider + Encounter Details Date Type Department Care Team (Late st Contact Info) Description 01/23/2023 [facility] [employer] Information Management [address] [place], [place] [phone] Genna Jones MD [address] [place], [place] [phone] Social History Tobacco Use Types Packs/Day Years [...] Description 09/04/2025 3:00 PM EST Office Visit [facility] [address] [place], [place] [phone] Marlys Durand, OD [address] [place] [address] documented as of this encounter Visit Diagnoses Not on filedocumented in this encounter Additional Health Concerns Assessment Noted Time PHQ-9 Depression Total Score: 6 12/09/19 23 9:21 AM EDT documented as of this encounter Care Teams Air Hammer Operator Relationship Specialty Start Date End Date Genna Jones MD [address] [place] [address] PCP - General Family Medicine 09/25/18 documented as of this encounter
--- OUTSIDE RECORDS SUMMARY | 2025-08-11 20:13 | XMS_ITS | Encounter Summary ---
Author Organization [employer] Address [address] [facility] [address] 7[address] [place] [address] Care Team Providers Care Manager Of Software Development Name Role Phone Genna Jones MD Primary Care Provider + Reason for Visit * Reason Onset Date Comments Hospital Follow-up 08/24/2023 Encounter Details Date Type Department Care Team ([facility] st Contact Info) Description 08/24/2023 Telephone [facility] [address] [place], [place] [phone] Genna Jones MD [address] [place], [place] [phone] Hospital Follow-up Social History Tobacco Use Types [...] from pt requesting a HDF appt. Hospital: [facility] Date of admission: 08/08 Discharge date: 08/10 Diagnosed: bariatric surgery documented in this encounter Plan of Treatment Upcoming Encounters Date Type Department Care Team (Late st Contact Info) Description 09/04/2025 3:00 PM EST Office Visit [facility] [address] [place], [place] [phone] TarkaMarlys, OD [address] [place] [address] documented as of this encounter Visit Diagnoses Not on filedocumented in this encounter Additional Health Concerns Assessment Noted Time PHQ-9 Depression Total Score: 6 12/09/19 23 9:21 AM EDT documented as of this encounter Care Teams Manager Of Software Development Relationship Specialty Start Date End Date Genna Jones MD [address] [place], [place] [phone] PCP - General Family Medicine 09/25/18 documented as of this encounter
--- OUTSIDE RECORDS SUMMARY | 2025-08-11 20:13 | XMS_ITS | Clinical Summary ---
Author Organization [address] [place] [address] Address [address] [place] [phone] Phone Care Team Providers Care Waiter/Waitress Third Class Name Role Phone Genna Jones MD Primary [...] Active Problems Problem Noted Date Diagnosed Date Adjustment disorder with mixed anxiety and depre ssed mood 03/12/2025 Binge eating disorder 03/12/2025 Leg pain 03/12/2025 Acute vaginitis 08/25/2024 Class 1 obesity due to exces s calories without serious comorbidity with body mass index (BMI) of 30.0 to 30.9 in adult 07/21/2024 ASCUS with positive high risk HPV cervical 09/04 Chronic idiopathic constipation 09/04/2023 Genital warts 09/04/2023 Tenosynovitis of elbow 01/23/2023 Adjustment disorder with anxious mood 12/08/2022 Decreased vision 12/08/2022 THAKKAR (dyspnea on exertion) 12/08/2022 Abnormal uterine bleeding 12/07/2022 Hypercholesteremia 10/17/2022 Overview (03/12/2025): -Last lipids: TC 195, HDL 47, LDL 132, TG Jul -Lifestyle interventions encouraged Prediabetes 10/17/2022 Overview (03/12/2025): -Last A1c 5.7% May 2021. Repeat ordered by PCP -Lifestyle interventions encouraged IFG (impaired fasting glucose) 11/21/2018 Vitamin D deficiency 11/21/2018 Anxiety 09/25/2018 Varicose veins of lower extremity 06/06/2016 Immunizations Immunization Administration Dates Next Due Pfizer SARS-CoV-2 COVID-19, mRNA, LNP-S, preservative free 01/19/2021,12/28/2020 Social History Tobacco Use Types Packs/Day Years Used Date Smoking Tobacco: Never Assessed Smokeless Tobacco: Never Comments Unknown Sex and Gender Information Value Date Recorded Sex Assigned at Not on file Legal Sex Female 1:46 AM EST Gender Identity Not on file Sexual Orientation Not on file Last Filed Vital Signs Vital Sign Reading Time Taken Comments Blood Pressure 99/48 03/12/2025 2:57 PM EDT Pulse 65 03/12/2025 2:57 PM EDT Temperature 36.6 C (97.8 F) 03/12/2025 2:57 PM EDT Respiratory Rate - - Oxygen Saturation - - Inhaled Oxygen Concentration - - Weight 73.9 kg (163 lb) 03/12/2025 2:57 PM EDT Height 170.2 cm (5' 7 ) 03/12/2025 2:57 PM EDT Body Mass Index 25.53 03/12/2025 2:57 PM EDT Plan of Treatment Health Maintenance Due Date Last Done Comments Breast Cancer Screening 1985 Social Influencers of Health Screening 09/25/2023 Depression Screening 08/27/2024 Hepatitis B Vaccines (2 of 3 - 19+ 3-dose series) 09/22/2024 08/25/2024 COVID-19 Vaccine ( - season) 2025 07/29/2021, 01/19/2021, 12/28/2020 Influenza Vaccine (#1) 2025 4, 06/26/2022, 05/30/2021, Additional history exists Cervical Cancer Screening: Pap Smear 02/22/2026 02/22/2023 Cholesterol Screening (Lipid Panel) 04/18/2028 04/18/2023 DTaP,Tdap,and Td Vaccines (3 - Td or Tdap) 09/28/2030 09/28/2020, 04/16/2020 RSV Immunization Adult Patients (1 - 1-dose 75+ series) 2059 HIV Screening Completed 12/08/2022, 12/08/2022 Hepatitis C Screening Completed 12/08/2022 HPV Vaccines Completed 01/06/2025, 06/28, 05/19/2024 HIB Vaccines Aged Out No longer eligi [...] 5 Years) and At-Risk Patients (6 to 49 Years) Aged Out No longer eligible based [...] Maintenance Results * (ABNORMAL) Lipid panel (04/18/2023) LDL/HDL Ratio 4 0 - 4 Triglycerides 77 0 - 150 mg/dL Cholesterol 208(A) 0 - 200 mg/dL HDL 52 >=40 mg/dL LDL Cholesterol 141(A) 0 - 100 mg/dL Blood Venous blood specimen / Unknown Result [facility] Provider LAB BLOOD ORDERABLES Mabel l Result * Pap Smear (02/22/2023) Pap smear no interpretation , abstracted [facility] Provider HEALTH MAINTENANCE Final Result * HIV Screening (12/08/2022) Pathologist [facility] HIV Screening abstracted [facility] Provider HEALTH MAINTENANCE Final Result * Hepatitis C Screening (12/08/2022) Hepatitis C Screening Abstracted [facility] Provider HEALTH MAINTENANCE Final Result from Last 3 Months or Most Recently Relevant to Health Maintenance Insurance MEDICAID - [place] Care Teams Waiter/Waitress Third Class Relationship Specialty Start Date End Date Genna Jones MD [address] [place] [phone] PCP - General 01/29/23
--- OUTSIDE RECORDS SUMMARY | 2025-08-11 20:13 | XMS_ITS | Encounter Summary ---
Author Organization [employer] Address [address] [facility] [address] 7[address] [place] [address] Care Team Providers Care Chain Sales Consultant Name Role Phone Genna Jones MD Primary Care Provider + Reason for Visit * Reason Onset Date Comments Appointment Request 08/13/2023 Encounter Details Date Type Department Care Team ([facility] st Contact Info) Description 08/13/2023 Telephone [facility] [address] [place], [place] [phone] Genna Jones MD [address], [place] [phone] Appointment Request Social History Tobacco Use Types [...] Description 09/04/2025 3:00 PM EST Office Visit [facility] [address] [place], [place] [phone] Marlys Durand, OD [address] [place] [address] documented as of this encounter Visit Diagnoses Not on filedocumented in this encounter Additional Health Concerns Assessment Noted Time PHQ-9 Depression Total Score: 6 12/09/19 23 9:21 AM EDT documented as of this encounter Care Teams Chain Sales Consultant Relationship Specialty Start Date End Date Genna Jones MD [address], [place] [phone] PCP - General Family Medicine 09/25/18 documented as of this encounter
--- OUTSIDE RECORDS SUMMARY | 2025-08-11 20:13 | XMS_ITS | Clinical Summary ---
Author Organization [employer] Address [address] [place] [address] Care Team Providers Care Senior Clinical Research Scientist Name Role Phone Genna Jones MD Primary Care Provider + Allergies No known active allergies Medications polyethylene glycol, PEG, 3350 (Miralax) 17 g packet Take 17 g by mouth if needed each day. 08/02/2023 Active Multiple Vitamin (multivitamin) capsule Take 1 capsule by mouth Once per day. 90 capsule 3 08/25/2024 Active nitrofurantoin, macrocrystal-mo nohydrate, (Macrobid) 100 MG capsule Take 1 capsule (100 mg) by mouth 2 times daily for 5 days. 10 capsule 08/11/2025 5 Active Active Problems Problem Noted Date Diagnosed [...] series today, declined Covid booster. FU with MEDICAL CLAIMS MANAGER re HPV #3 Dental visit: UTD, next [...] syphilis? Chlamydia? I will order RPR. Contact MEDICAL CLAIMS MANAGER for genital exam, PAP is due on [...] adult 09/25/2018 05/15/2024 Overview (10/22/2022): -Following with [facility], although appears difficulty getting approved [...] weight reduction program, she is going to [facility] program. Discussed re weight reduction options including exercise, life style modifications, diet, referral to seo specialist. Discussed re lower calorie intake, increase dietary fiber Will consider metformin or other parenteral medications for weight reduction if bariatric surgery not approved. Assessment & Plan (10/22/2022 8:36 PM EST): -Will fax over today's office visit with further list of conditions Encounters Date Type Department Care Team Description 08/11/2025 4:00 PM EST Office Visit [facility] [address] [place] [phone] Riri Khan, PACKING TRACTOR MACHINE OPERATOR Vaginal itching; UTI symptoms 08/11/2025 Travel from Last 3 Months Immunizations Immunization Administration Dates Next Due HPV 9-Valent 05/19/2024 [...] (165 lb) 08/11/2025 3:18 PM EST Height 167.6 cm (5' 6 ) 08/25/2024 2:28 PM EST Body Mass Index 26.63 08/25/2024 2:28 PM EST Plan of Treatment Upcoming Encounters Date Type Department Care Team (Late st Contact Info) Description 09/04/2025 3:00 PM EST Office Visit [facility] [address] [place] [address] Marlys Durand, OD [address] [place] [address] Health Maintenance Due Date Last Done Comments Disability Screening 1984 Alcohol/Substance Use Screening 1996 Family Planning (PISQ) 1999 Depression Screening 12/09/2023 12/08/2022, 12/09/19 Hepatitis B Vaccines (2 of 3 - 19+ 3-dose series) 09/22/2024 08/25/2024 COVID-19 Vaccine (4 - 2024- season) 2025 07/29/2021, 01/19/2021, 12/28/2020 Influenza Vaccine (#1) 2025 , 06/26/2022, 05/30/2021, Additional history exists Diabetes: Hemoglobin A1C 05/15/2025 024, 12/08/2022, 05/30/2021, Additional history exists SDOH Screening 08/14/2025 08/14/2024 Mammogram 09/30/2025 09/30/2024, 09/12/2024 Tobacco Screening 08/11/2026 08/11/2025 Pap Smear 05/08/2027 05/08/2024, 01/26, 02/22/2023 Cervical [...] 12/08/2022 Hepatitis C Screening Completed 06/02/2024, 023 HPV Vaccines Completed 01/06/2025, 06/28, 05/19/2024 HIB [...] Years) and At-Risk Patients (6 to 49) Years Aged Out No longer eligible based on [...] Routine 08/11/2025 3:40 PM EST Vaginal itching CHLAMYDIA/N. GONORRHOEAE RNA, TMA, UROGENITAL Routine 08/11/2025 3:21 PM EST Vaginal itching BACTERIAL VAGINOSIS PANEL Routine 08/11/2025 3:21 PM EST Vaginal itching BI MAMMOGRAM ADDITIONAL VIEWS LEFT Routine 09/30/2024 [...] Relevant to Health Maintenance Results * (ABNORMAL) POCT urinalysis dipstick manually resulted (CPT 88034) (08/11/2025 3:40 PM EST) Color, UA Yellow [...] Urine (Urine, Random) 08/11/2025 3:40 PM EST [employer] POINT OF CARE TEST ENTER/EDIT ORDERABLES Final Result * Bacterial Vaginosis (08/11/2025 3:21 PM EST) TRICHOMONAS VAGINALIS DETECTION BY PCR NOT DETECTED Not Detect [facility] BACTERIAL VAGINOSIS DETECTION BY PCR NEGATIVE Negative [facility] Comment:The BV organism targ [...] DETECTION BY PCR NOT DETECTED Not Detect [facility] Jennifer glab krusei PCR NOT DETECTED Not Detect [facility] Swab Vaginal structure / Unknown 08/11/2025 3:21 PM EST 08/11/2025 4:19 PM EST [employer] PACKING TRACTOR MACHINE OPERATOR LAB MICROBIOLOGY - GENERAL ORD ERABLES Final Result [facility] [address] [place] [phone] * Chlamydia/N. Gonorrhoeae RNA, TMA, Urogenitial (08/11/2025 3:21 PM EST) CT PCR NOT DETECTED Not Detect. [facility] Comment:A not detected test [...] psychologicalconsequences. NG PCR NOT DETECTED Not Detect. [facility] Comment:A not detected test [...] EST 08/11/2025 4:19 PM EST Riri Khan [facility] MICROBIOLOGY - GENERAL ORD ERABLES Final Result [facility] [address] [place] [phone] * Left mammogram, additional views (09/30/2024 12:15 PM EST) Anatomical Region Laterality Modality Breast Left Mammography 09/30/2024 12:1 5 PM EST Narrative 09/30/2024 1:55 PM EST [facility] [address] [place] [address] Mammography Report Signed Patient: Madison Sethi MR#: [id number] 8 : 1985 Acct:[id number] Age/Sex: 39 / F ADM Date: 09/30/24 Loc: HO.MAMMO Attending Dr: Genna Jones MD Ordering Physician: Genna Jones MD Results: 4Su spicious Finding Date of Service: 09/30/24 Follow Up: Biopsy Recommend ed Procedure(s): MM added views LT Accession Number(s): [id number] cc: Genna Jones MD EXAMINATION: MM DIAGNOSTIC [...] 09/30/24 1352 DD/ 1215 TD/TT: 09/30/24 1230 [employer]: Procedure Note Donotuseinterpreter, Image - 09/30/2024 [facility] [address] [place] [address] Mammography Report Signed Patient: Michael Sethi#: [id number] 8 : 1985Acct:[id number] Age/Sex: 39 / FADM Date: 09/30/24 Loc: HO.MAMMO Attending Dr: Genna Jones MD Ordering Physician: Genna Jones MDResults: 4Su spicious Finding Date of Service: 09/30/24Follow Up: Biopsy Recommend ed Procedure(s): MM added views LT Accession Number(s): [id number] cc: Genna Jones MD EXAMINATION: MM DIAGNOSTIC [...] by: Ny Matos DO 09/30/2024 01:52 PM [facility] Dictated By: Ny Matos DO Signed By: <Electronically signed by Ny Matos DO in OV> 09/30/24 1352 DD/ 1215 TD/TT: 09/30/24 1230 [employer]: us Genna Jones MD IMG BI PROCEDURES Final Result * (ABNORMAL) Lipid Panel with Reflex to Direct LDL (06/02/2024 9:33 AM EDT) Triglycerides 68 <150 mg/dL [facility] Comment:Desirable Triglyceri de: less than 150 mg/dLBorderline High Triglyceride 150-199 mg/dLHigh Triglyceride: 200-499 mg/dLVery High Triglyceride: greater than or equal to 5OO mg/dL Cholesterol 209(H) <200 mg/dL [facility] Comment:Desirable Cholestero l: less than 200 mg/dLBorderline High Cholesterol: 200-239 mg/dLHigh Cholesterol: greater than 239 mg/dL LDL Cholesterol Calculated 141(H) <100 mg/dL [facility] Comment:Desirable LDL: less than 100 mg/dLNear Optimal/Above Optimal LDL: 110- 129 mg/dLBorderline High LDL: 130-159 mg/dLHigh LDL: 160-189 mg/dLVery High LDL: greater than or equal to 190 mg/dL HDL Cholesterol 55 >40 mg/dL [facility] Comment:Desirable HDL: great er than 40 mg/dL Note: This HDL assay may give artificially low results in patients with liver disease. Blood 06/02/2024 9:33 AM EDT 06/02/2024 11:15 AM EDT us Genna Jones MD LAB BLOOD ORDERABLES Fin al Result [facility] [address] [place] [phone] * Hepatitis Panel, General (06/02/2024 9:33 AM EDT) Hepatitis A IgM Nonreactive Nonreactive [facility] Comment:IgM antibodies to BRAY V not detected; does not exclude earlyacute or recovered HAV infection. ~Hepatitis B Surface Antibody NONREACTIVE Nonreactive [facility] Comment:Nonreactive: < 8.00 mIU/mL Hepatitis B Core Antibody Nonreactive Nonreactive [facility] Hepatitis C Antibody Nonreactive Nonreactive [facility] Comment:Antibodies to HCV no t detected; does not exclude early acuteHCV infection. Hepatitis B Surface Ag Negative Negative [facility] Blood 06/02/2024 9:33 AM EDT 06/02/2024 11:15 AM EDT Genna Jones MD LAB BLOOD ORDERABLES Fin al Result [facility] [address] [place] [phone] * POCT HGB A1C (05/15/2024 9:13 AM EDT) Hemoglobin A1C 5.6 4.0 - 6.0 % QC Media Lot # [id number] Lot# Expiration Date ,683,756 Blood 05/15/2024 9:13 AM EDT Genna Jones MD POINT OF CARE TEST ENTER /EDIT ORDERABLES Final Result * ThinPrep Imaging Pap and HPV mRNA E6/E7 with Reflex to HPV 16,18/45 (05/08/2024 2:18 PM EDT) HPV 16 RNA TNP [facility] HPV 18/45 RNA [facility] HPV nRNA E6/E7 Not Detected Not Detected [facility] Comment:Methodology: Transcr iption-Mediated AmplificationThis assay detects E6/E7 viral messenger RNA (mRNA) from 14high-risk HPV types (16,18,31,33,35,39,45,51,52,56,58,59,66,68).Cervical sources are required for HPV testing.If a vaginal source from a patient who has had atotal hysterectomy with removal of cervix wassubmitted, please contact the testing laboratoryfor alternative testing options.For additional information, please refer tohttp://education.eLibs.com/faq/GUQ638i2(This link if provided for information/educational purposes only.)THIS TEST WAS PERFORMED AT:[facility] [place] [phone] BANKS MD SOURCE: SEE NOTE [facility] Comment:None given Report Status: [facility] Clinical Information: SEE NOTE [facility] Comment:None given LMP: SEE NOTE [facility] Comment:NONE GIVEN Prev. PAP: SEE NOTE [facility] Comment:NONE GIVEN Prev. BX: SEE NOTE [facility] Comment:NONE GIVEN Statement Of Adequacy: SEE NOTE [facility] Comment:Satisfactory for nicol luation.Endocervical/transformation zone componentpresent. General Categorization: [facility] Interpretation/Result: SEE NOTE [facility] Comment:Cytology Results: Ne gative for intraepitheliallesion or malignancy. Cytology Comment SEE NOTE [facility] Comment:This Pap test has be en evaluated with computerassisted technology. Fender Mechanic: SEE NOTE [facility] Comment:KF, CT(ASCP)CT scree rashad location: [place] [address] Review Fender Mechanic: SEE NOTE [facility] Comment:MPG, CT(ASCP)CT scre ening location: [place] [address] Pathologist [facility] PAP Infection [facility] See Note SEE NOTE [facility] Comment:EXPLANATORY NOTE:The Pap is [...] PM EDT 05/08/2024 3:57 PM EDT Narrative [facility] - 05/13/2024 3:15 PM EDT SEE SCANNED RESULTS IN EMR us Generic External Data Provider LAB PATHOLOGY ORD ERABLES Final Result [facility] [address] [place] [phone] * HIV-1/2 Antigen and Antibodies, Fourth Generation, with Reflexes (12/08/2022 9:54 AM EDT) HIV Antigen/Antibody, 4th Generation NON-REAC TIVE NON-REAC TIVE [facility] Comment: HIV-1 antigen and HIV-1/HIV-2 antibodies were not detected. There is no laboratory evidence of HIV infection. PLEASE NOTE: This information has been disclosed to you from records whose confidentiality may be protected by state law. If your state requires such protection, then the state law prohibits you from making any further disclosure of the information without the specific written consent of the person to whom it pertains, or as otherwise permitted by law. A general authorization for the release of medical or other information is NOT sufficient for this purpose. For additional information please refer to http://education.eLibs.com/faq/SLM983 (This link is being provided for informational/ educational purposes only.) The performance of this assay has not been clinically validated in patients less than 2 years old. Blood Venous blood specimen / Unknown 12/08/2022 9:54 AM EDT 12/08/2022 9:55 AM EDT Narrative [facility] - 12/13/2022 11:15 PM EDT FASTING:YES FASTING: YES Genna Jones MD LAB BLOOD ORDERABLES Fin al Result [facility] [address] [place] [phone] [facility] [place] [facility] [address] [place] [phone] from Last 3 Months or Most Recently Relevant to Health Maintenance Insurance [employer] [facility] [address] C3 Care Teams Senior Clinical Research Scientist Relationship Specialty Start Date End Date Genna Jones MD [address] [place] [phone] PCP - General Family Medicine 09/25/18
== END 2025-08-11 16:19 | disposition home or self-care (01) ==
LOC: HO.LNP 16:18
PROVIDERS: Visit Provider Nurse Practitioner Family
DX: Z20.2 Contact with and (suspected) exposure to infections with a predominantly sexual mode of transmission (principal); N89.8 Other specified noninflammatory disorders of vagina; R39.9 Unspecified symptoms and signs involving the genitourinary system
CPT/HCPCS: 81515; 87086; 87088; 87186; 87491; 87591